=== PATIENT | male | born 1950 | race Caucasian/White ===

== ENCOUNTER 2019-11-10 11:03 | Outpatient (REF) | payer MEDICARE, MEDICAID, SELFPAY | END 2019-11-10 11:04 | disposition home or self-care (01) | LOC: HO.LAB 11:03 | PROVIDERS: Visit Provider Internal Medicine | DX: Z20.828 Contact with and (suspected) exposure to other viral communicable diseases (principal) | CPT/HCPCS: 36415; 87635 ==

== ENCOUNTER 2020-01-21 14:15 | Outpatient (REF) | payer MEDICARE, MEDICAID, SELFPAY | END 2020-01-21 14:16 | disposition home or self-care (01) | LOC: HO.LAB 14:15 | PROVIDERS: Visit Provider Internal Medicine | DX: Z20.828 Contact with and (suspected) exposure to other viral communicable diseases (principal) | CPT/HCPCS: C9803; U0003 ==

== ENCOUNTER 2021-01-11 15:03 | Outpatient (REF) | payer MEDICARE, MEDICAID, SELFPAY ==
--- NOTE | ~2021-01-11 | US_ITS ---
EXAMINATION: US COMPLETE ABDOMEN WITH LIVER ELASTOGRAPHY CLINICAL INFORMATION: Chronic lateral hepatitis. COMPARISON: None. TECHNIQUE: Real-time imaging of the abdominal viscera. Noninvasive ultrasound liver fibrosis assessment is performed using Hope ElastPQ point quantification shear wave elastography (pSWE) with a C5-2 MHz transducer. Multiple elastography samples are obtained. FINDINGS: PANCREAS: Normal. The visualized pancreatic head and body are normal in appearance. The remainder of the pancreas is obscured from visualization by the overlying bowel gas. ABDOMINAL AORTA: The proximal, middle, and distal aortic segments are normal in caliber. INFERIOR VENA CAVA: Visualized portions are normal. LIVER: The liver demonstrates normal size, contour and increased echogenicity. No focal lesion or intrahepatic biliary duct dilatation. The right lobe measures 17.3 cm in length. The left lobe measures 10.8 cm in length. Portal flow is hepatopedal. Shear wave liver elastography median stiffness is 1.25 m/s (reference: normal median stiffness is 1.3 m/s or less). IQR/median stiffness to assess sampling precision is 0.12 (reference: good quality data set is IQR/median stiffness of 0.15 or less). GALLBLADDER: Normal. The gallbladder is physiologically distended without evidence of stones, sludge, polyps, wall thickening or pericholecystic fluid. COMMON BILE DUCT: Normal in caliber measuring 0.40 cm in diameter. RIGHT KIDNEY: Normal. No hydronephrosis. No renal calculi or focal parenchymal lesions. The kidney measures 12.5 cm in maximum dimension. LEFT KIDNEY: Normal. No hydronephrosis. No renal calculi or focal parenchymal lesions. The kidney measures 11.6 cm in maximum dimension. SPLEEN: Normal. The spleen measures 13.4 cm in maximum dimension. There are multiple echogenic calcification seen. FREE FLUID: None. US/US abdomen comp w elastography IMPRESSION: 1. Diffuse hepatic steatosis without focal lesion. There are multiple echogenic calcifications in the spleen. 2. Liver elastography: Median liver stiffness 1.25 m/s suggestive of high probability for normal exam. REFERENCE: Society of Radiologists in Ultrasound Liver Stiffness Thresholds (2019): LIVER STIFFNESS THRESHOLDS: *Liver Stiffness equal or less than 1.3 m/s: High probability of being normal. *Liver Stiffness less than 1.7 m/s: In the absence of other known clinical signs, rules out compensated advanced chronic liver disease. *Liver Stiffness 1.7-2.1 m/s: Suggestive of compensated advanced chronic liver disease but need further test for confirmation. *Liver Stiffness over 2.1 m/s: Rules in compensated advanced chronic liver disease. *Liver Stiffness over 2.4 m/s: Suggestive of clinically significant portal hypertension. QUALITY OF DATA SET: *IQR/Median value equal or less than 0.15 implies a quality data set. *IQR/Median value over 0.15 implies a poor quality data set. SIGNIFICANT CHANGE FROM PRIOR EXAM: Significant change if liver stiffness measurement is 10% or greater from prior exam. OTHER CONSIDERATIONS: The stage of liver fibrosis may be overestimated in the setting of acute hepatitis, liver inflammation, elevated liver function tests, hepatic vascular congestion, obstructive cholestasis, non-fasting state, and infiltrative diseases such as amyloidosis and lymphoma. In some patients with NAFLD, the liver stiffness thresholds for compensated advanced chronic liver disease may be lower. In causes other than viral hepatitis and NAFLD, liver stiffness thresholds are not well established.
== END 2021-01-11 15:04 | disposition home or self-care (01) ==
LOC: HO.US 15:03
PROVIDERS: Visit Provider Family Medicine
DX: B18.2 Chronic viral hepatitis C (principal)
CPT/HCPCS: 76705; 76981

== ENCOUNTER 2021-08-29 09:07 | Outpatient (REF) | payer MEDICARE, MEDICAID, SELFPAY ==
[2021-08-29 09:41] LABS: MANUAL DIFF FLAG NO
[2021-08-29 10:18] LABS: Basophils Percent Auto 0.4 % (0-2); Eosinophils Absolute Auto 0.3 X10*3/uL (0.0-0.4); Eosinophils Percent Auto 2.7 % (0-4); Hematocrit 45.4 % (42.0-52.0); Hemoglobin 14.9 g/dl (14.0-18.0); Imm Gran Abs Auto 0.03 X10*3/uL (0.00-0.03); Imm Gran Pct Auto 0.3 % (0.0-0.4); Lymphocytes Absolute Auto 1.4 X10*3/uL (1.2-4.9); Mean Corpuscular HGB Conc 32.8 g/dl (31.0-36.0); Mean Corpuscular Hemoglobin 29.7 pg (27.0-33.0); Mean Corpuscular Volume 90.6 fL (80.0-98.0); Mean Platelet Volume 10.2 fL (9.4-12.4); Neutrophils Percent Auto 74.6 % (45-73); Platelet Count 224 X10*3/uL (160-400); Red Blood Count 5.01 X10*6/uL (4.60-5.80); Red Cell Distribution Width 13.2 % (11.0-16.0); White Blood Count 10.8 X10*3/uL (4.8-10.8)
[2021-08-29 10:57] LABS: Alanine Aminotransferase 17 U/L (0-40); Alkaline Phosphatase 91 U/L (39-117); Anion Gap 10 (12-20); Aspartate Amino Transferase 17 U/L (5-37); Bilirubin Total 0.4 mg/dL (0.0-1.0); Blood Urea Nitrogen 18 mg/dL (9-16); Calcium 8.6 mg/dL (8.4-10.2); Carbon Dioxide 30 mmol/L (22-29); Chloride 102 mmol/L (96-108); Estimated Glomerular Filt Rate > 60; Glucose Random 314 mg/dL (60-115); Iron 65 mcg/dL (45-160); Percent Iron Saturation 24 % (15-50); Potassium 4.7 mmol/L (3.3-5.1); Sodium 137 mmol/L (135-145); Total Iron Binding Capacity 269 mcg/dL (228-428); Total Protein 6.6 g/dL (6.5-8.0); Unsaturated Iron Binding 204 ug/dL
[2021-08-29 11:09] LABS: Estimated Average Glucose 151 mg/dL; Hemoglobin A1c % 6.9 %
[2021-08-29 11:18] LABS: Thyroid Stimulating Hormone 1.27 uIU/mL (0.32-4.0)
[2021-08-30 07:16] LABS: HCG Tumor Marker <3 mIU/mL (<5)
[2021-09-01 09:26] LABS: HCV Log PCR <1.18 NOT DETECTED Log IU/mL (NOT DETECTED); HepC Viral Load <15 NOT DETECTED IU/mL (NOT DETECTED)
== END 2021-08-29 09:08 | disposition home or self-care (01) ==
LOC: HO.LAB 09:07
PROVIDERS: PCP Internal Medicine; Visit Provider Physician Assistant
DX: I63.9 Cerebral infarction, unspecified (principal); B19.20 Unspecified viral hepatitis C without hepatic coma; K52.9 Noninfective gastroenteritis and colitis, unspecified; E11.9 Type 2 diabetes mellitus without complications; Z78.9 Other specified health status
CPT/HCPCS: 36415; 80053; 83036; 83540; 84443; 84702; 85025; 87522; 99202

== ENCOUNTER → 2021-10-26 13:08 | Outpatient (BNVA) | payer MEDICARE, MEDICAID, SELFPAY | PROVIDERS: PCP Internal Medicine; Visit Provider Physician Assistant | DX: K74.02 Hepatic fibrosis, advanced fibrosis (principal); B19.20 Unspecified viral hepatitis C without hepatic coma; Z78.9 Other specified health status | CPT/HCPCS: Q3014 ==

== ENCOUNTER 2022-12-25 14:21 | Outpatient (REF) | payer MEDICARE, MEDICAID, SELFPAY ==
[2022-12-25 17:32] LABS: Anion Gap 12 (12-20); Blood Urea Nitrogen 17 mg/dL (9-16); Calcium 9.9 mg/dL (8.4-10.2); Carbon Dioxide 34 mmol/L (22-29); Chloride 102 mmol/L (96-108); Estimated Glomerular Filt Rate > 60; Glucose Random 69 mg/dL (60-115); Potassium 4.5 mmol/L (3.3-5.1); Sodium 143 mmol/L (135-145)
[2022-12-26 08:33] LABS: D Dimer High Sensitivity 1878 NG/ML
== END 2022-12-25 14:22 | disposition home or self-care (01) ==
LOC: HO.CHCLDS 14:21
PROVIDERS: Visit Provider Internal Medicine
DX: R06.4 Hyperventilation (principal)
CPT/HCPCS: 36415; 80048; 85379

== ENCOUNTER 2023-08-20 12:17 | Outpatient (REF) | payer MEDICARE, MEDICAID, SELFPAY ==
[2023-08-20 14:55] LABS: Alanine Aminotransferase 24 U/L (0-40); Albumin Level 4.2 g/dL (3.5-5.0); Alkaline Phosphatase 73 U/L (39-117); Anion Gap 13 (12-20); Aspartate Amino Transferase 33 U/L (5-37); Bilirubin Total 0.4 mg/dL (0.0-1.0); Blood Urea Nitrogen 15 mg/dL (9-16); Calcium 9.7 mg/dL (8.4-10.2); Carbon Dioxide 27 mmol/L (22-29); Chloride 105 mmol/L (96-108); Cholesterol 130 mg/dL (<200); Estimated Glomerular Filt Rate > 60; Glucose Random 158 mg/dL (60-115); HDL Cholesterol 39 mg/dL (>40); LDL Cholesterol Calculated 60 mg/dL (<100); Potassium 4.1 mmol/L (3.3-5.1); Sodium 141 mmol/L (135-145); Total Protein 6.9 g/dL (6.5-8.0); Triglycerides 158 mg/dL (<150)
== END 2023-08-20 12:18 | disposition home or self-care (01) ==
LOC: HO.CHCLDS 12:17
PROVIDERS: Visit Provider Internal Medicine
DX: E11.9 Type 2 diabetes mellitus without complications (principal); Z79.4 Long term (current) use of insulin; E78.2 Mixed hyperlipidemia
CPT/HCPCS: 36415; 80053; 80061

== ENCOUNTER 2023-10-30 15:57 | Outpatient (REF) | payer MEDICARE, MEDICAID, SELFPAY | END 2023-10-30 15:58 | disposition home or self-care (01) | LOC: HO.CHCLNP 15:57 | PROVIDERS: Visit Provider Internal Medicine | DX: L03.312 Cellulitis of back [any part except buttock and flank] (principal) | CPT/HCPCS: 87070; 87205 ==

== ENCOUNTER 2023-11-01 12:58 | Outpatient (REF) | payer MEDICARE, MEDICAID, SELFPAY ==
[2023-11-01 14:55] LABS: Creatinine Urine 135.32 mg/dL; Microalbum/Creatinine Ratio Ur 17.7 ug/mg cr (<30)
== END 2023-11-01 12:59 | disposition home or self-care (01) ==
LOC: HO.CHCLNP 12:58
PROVIDERS: Visit Provider Internal Medicine
DX: E11.9 Type 2 diabetes mellitus without complications (principal); Z79.4 Long term (current) use of insulin
CPT/HCPCS: 82043; 82570

== ENCOUNTER 2023-11-27 13:12 | Outpatient (AMB) | payer MEDICARE, MEDICAID, SELFPAY ==
--- NOTE | 2023-11-27 13:13 | A.OFFVIS_ITS ---
Vital Signs 11/27/23 13:20 Weight 191 lb BP 136/74 Blood Pressure Location Rt brachial Position Sitting Pulse 100 Intake Visit Reasons: Epidermoid cyst of skin of back Intake Note: Patient referred by Dr. Abbott for cyst on posterior neck. Present for yrs. Had it removed about 2yrs ago. Patient c/o: lump. Denies pain, oozing. Drafter Commercial Required: No Accompanied by: Self / Same As Patient Allergies No Known Allergies Allergy (Verified 11/27/23 13:19) HPI Comments Details: Patient presents for an symptomatic enlarging upper back mass. He has had this indeterminate time. His increasing in size, becoming more symptomatic. He would like to have removed. Patient has had other back masses /sebaceous cysts excised in the past. Chart was reviewed and patient evaluate [facility] Medical History (Updated 11/27/23 @ 13:23 by CARY Rocha) HTN (hypertension) Surgical History (Updated 11/27/23 @ 13:29 by Ezekiel Nichols MD) Hx of inguinal hernia surgery History of esophagogastroduodenoscopy (EGD) Hx of colonoscopy Family History Mother CHD (congenital heart disease) Social History Household Members Other:: Lives with GF Alcohol intake: former Patient Tobacco Use Status: Former Tobacco user Substance Use Type: Marijuana Current occupational status: retired Physical Exam Vital Signs: Last Vital Signs Pulse 100 11/27/23 13:20 BP 136/74 11/27/23 13:20 Chest Other: Chest breath sounds bilaterally, HS 1 in 2 GI Other: Abdomen corpulent, soft, benign Back/Spine/Pelvis Other: Patient has a large upper midline mass/sebaceous cyst measuring roughly 4 x 4 cm. Other scars from prior excision seen Extrem Other: 0 4 grossly intact. Status post right total knee replacement Assessment & Plan Assessment & Plan (1) Diabetes: Code(s): E11.9 - Type 2 diabetes mellitus without complications Category: Surgical Plan: Risks, benefits, alternatives of excision of upper back large mass/sebaceous cyst were reviewed with the patient and included but not limited to bleeding, infection, recurrence, numbness, pain, scarring, seroma formation, wound dehiscence and the patient wished to proceed. All questions answered. Arrangements made for this. Patient will need to have his Plavix held prior to procedure. (2) Sebaceous cyst: Code(s): L72.3 - Sebaceous cyst Category: Surgical Plan: See above Coding Level of Care Code New Pt Level 5 (79523) Diagnoses Diabetes E11.9 Sebaceous cyst L72.3
[2023-11-27 13:20] VITALS: BP 136/74; PULSE 100
== END 2023-11-27 13:34 | disposition home or self-care (01) ==
LOC: HO.HGS 13:12
PROVIDERS: PCP Internal Medicine; Visit Provider Surgery
DX: E11.9 Type 2 diabetes mellitus without complications (principal); L72.3 Sebaceous cyst
CPT/HCPCS: 99204

== ENCOUNTER → 2023-11-27 13:12 | Outpatient (BNVA) | payer MEDICARE, MEDICAID, SELFPAY | PROVIDERS: PCP Internal Medicine; Visit Provider Surgery | DX: L72.3 Sebaceous cyst (principal); E11.9 Type 2 diabetes mellitus without complications | CPT/HCPCS: 99202 ==

== ENCOUNTER 2024-02-18 12:15 | Outpatient (RCR) | payer MEDICARE, MEDICAID, SELFPAY ==
--- NOTE | 2024-03-27 11:25 | MHC.SP.ADU ---
Referring provider: Jenni Santiago MD Reason for Referral: Post-CVA Type of Treatment: 16842 Evaluation Speech Sound Production WITH Language Date of Plan of Treatment: 02/18/24 Onset of Symptoms/Illness: 01/19/24 Date Treatment Started: 02/18/24 Medical Diagnosis: I63.89 Cerebrovascular accident (CVA) d/t other mechanism Primary Speech Language Diagnosis: R47.1 Dysarthria Secondary Speech Language Diagnosis: R47.01 Aphasia History Mr. Taylor is a charismatic 73 year old male referred for a speech-language evaluation by Jenni Santiago MD from the [facility]. Mr. Taylor reports on 01/19/24 experiencing sudden onset of severe headache and slurred speech. He was reportedly out of window for CVA interventions given his time of presentation to the ED. His Head CT showed no acute intracranial pathology, with old white matter ischemic changes and infarcts including the right navarrete radiate and bilateral basal ganglia as well as moderate atrophy. Mr. Taylor reports he can express himself appropriately, but does not feel that his speech has fully recovered, and describes his articulation difficulties as ?feeling like [he has] a mushy mouth.? He expresses that this has bothered him, as he is frequently talking to new people by phone or email to invite to his open jayesh. 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 Because he now feels self-conscious, he has had someone accompany him as he performs. Mr. Taylor reports that his partner, Glenny, also has a difficult time understanding his speech at times. Patient reports difficulties in the following areas: being understood by others, finding words, stuttering, oral motor weakness. Patient completed high school level education and was previously working a sanitary job. His medical history includes diabetes, hypertension, GERD, heart disease, hyperlipidemia, and self-reported history of prior stroke in 2009. Mr. Taylor lives in a private residence with his partner and has one adult son. Mr. Taylor wears cheaters for reading and does not use any other assistive devices at this time. Medical History: Other: Benign prostatic hyperplasia without urinary obstruction CVA Chronic gingivitis Depressive disorder Diabetes mellitus type 2 Disorder of nasal sinus Essential hypertension GERD Heart disease Viral hepatitis C Hyperlipidemia Cellulitis and abscess of trunk Cyst of his upper back Assessment Speech Production: Aphasic: Nonfluent Dysarthric Garbled Nonfluent Clinical Impression: Impaired Observations: With oral neuromotor examination, patient displayed facial symmetry at rest and with labial retraction. He was able to puff his cheeks and maintain labial seal when pressure was applied. He pursed his lips for production of vowel ?oo? and retracted his lips for production of ?ee.? Note slight weakness of the tongue with protrusion into the left cheek. Lingual ROM is within functional limits. Strength and range of motion of the lips and jaw are deemed to be within functional limits. Note intact and symmetrical velar elevation with phonation. Patient has adequate natural dentition for mastication. Patient reports he will be seeing an ENT on Sunday for ?over salivating all of the time.? He reports his father experienced the same thing after his stroke and patient himself has been dealing with this since his first stroke. Patient?s speech is characterized as garbled with occasional hesitancies or dysfluencies. Patient?s productions broke down in multisyllabic words (i.e. asparagus, harmonica), as he exhibited difficulty sequencing syllables especially when pressed for time or speaking with a rapid rate of speech. Patient presented with increased metathesis patterns, sound substitutions, and distortions with word or phrase length. Patient exhibited particular difficulty producing consonant clusters and blends (i.e. igloo), fricative sounds, especially the /f/ and /z/ sounds in the final position of words (i.e. volcano, [place]). Patient was able to improve his productions when repeating himself with a slowed rate of speech. His dysfluencies consisted of whole-word and part-word (syllable) repetitions. No blocking was observed during this evaluation period. Patient reports he ?stutters whenever [he] tries to express himself.? Tests of Speech & Lang Adults: BDAE BNT Clinical Impression: Impaired Observations: Patient was administered the Auditory Comprehension and Oral Expression subtests of the [place]s Diagnostic Aphasia Examination. His performance is summarized below: RECEPTIVE LANGUAGE: Patient completed single-step commands, which were verbally presented to him, demonstrating intact basic word discrimination (i.e. ?Point to your shoulder? ?Point to the picture representing an ant?) (score 16/16). He identified body parts on himself and line images from an array of 4. He likewise completed multi-step and more complex commands without any difficulty. Patient was presented with a verbal directions. Each element of the direction carried out was scored with 1 point. He received a score of 10 out of 10 on this task. He correctly answered yes/no questions about ideational material in 4 out of 4 trials and about short stories read aloud for him in 8 out of 8 trials. Questions were presented in pairs (6 pairs), each pair consisting of a yes-item and a no-item. In order to gain 1 point, patient was to answer both questions correctly. He received a score of 6/6. No difficulties were identified in the area of receptive language. EXPRESSIVE LANGUAGE: Patient recited the days of the week and counted to 21 without difficulty, receiving a score of 4/4. He reported no difficulties with automatic speech tasks. Patient repeated single words in 5 out of 5 trials and complete sentences in 2 out of 2 trials. He exhibited no difficulty with repetition. He responded appropriately to responsive naming questions (i.e. ?What do you use to shave??) in 5 out of 5 trials. Items immediately named were scored as 2 points and items named after a short time delay (>5 sec) were scored as 1 point. Patient named 5 items immediately, receiving a score of 10/10. Patient correctly named ?special categories,? which included letters, numbers, and colors in 12 out of 12 trials. Patient formulated complete sentences with appropriate use of grammatical forms and varied sentence structure. Patient did exhibit mild word finding difficulty at the conversational level, thus the Downs Naming Test was administered. Patient completed the Standard Form and correctly named 52 out of 60 line images. He exhibited hesitancies with confrontational naming and on occasion produced semantic paraphasias (i.e. naming abacus as ?badmitton?). Patient also described target words as a means of self-cuing. For example, he described ?compass? as ?a measuring device? and escalator as ?motorized stairs.? Patient reports having trouble finding words in the context of a conversation and especially with heightened emotion. Impressions and Recommendations Summary: Mr. Taylor presents with a mild dysarthria, characterized by garbled speech quality and occasional hesitancies or dysfluencies, with difficulty on production of multisyllabic words, fricative sounds, and consonant blends. Encouragingly, Mr. Taylor is able to self-correct his productions when pausing and slowing his rate of speech. 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 He otherwise presents with strengths in his receptive and expressive language skills, demonstrating intact auditory comprehension, repetition, automatized speech, and sentence formation. Mr. Taylor is recommended 12 weekly visits for speech therapy in the outpatient setting to address articulation and word retrieval. Impact on Daily Function/Activity Limitations: Daily Activities: None Interpersonal Interactions: Mild Education: Employment: Mild Community: Mild Prognosis for Improvement: Good Recommendation for Speech Therapy: Outpatient Speech Therapy Frequency/Duration: 1x weekly x 12 weeks Date Range for Service Requested: Time to Reassess: 3 months Handkerchief Maker Goals: 1. Patient will independently use strategies for articulation and breath support to achieve 95% speech intelligibility at the conversational level. 2. Patient will utilize a variety of word-finding strategies at the conversational level with minimal assistance in >80% opportunities. Short Term Goals: Goal # : 1.1. Patient will accurately produce consonant clusters in the initial and medial positions of words at the sentence level with 90% accuracy with cues faded to independence. Goal Status: New Goal Goal# : 1.2. Patient will accurately produce the /v/ sound in all word positions at the sentence level with 90% accuracy and cues faded to independence. Goal Status: New Goal Goal # : 1.3. Patient will employ compensatory strategies (i.e. overarticulating, pacing, slowing rate of speech, appropriate pauses) to improve speech intelligibility during expository speech and paragraph reading in 90% of opportunities and cues faded to independence. Goal Status: New Goal Goal # : 2.1. Patient will produce a minimum of 4 different features, when presented with a word using semantic feature analysis (SFA), given minimal verbal prompts, with 80% accuracy. Goal Status: New Goal Patient Education: Completed: Yes Patient/Caregiver Education: Described Results of Evaluation Patient expressed understanding of evaluation Patient requires further education on strategies Comments/Barriers to Learning: It was a pleasure meeting and working with Mr. Taylor. Please do not hesitate to contact the [facility] if there are any questions related to the content of this report or if we can be of further assistance in Mr. Taylor?s care. Civil Geotechnical Engineer Clinican/Clinical Fellow: No Supervisory Statement: N/A Speech Language Pathologist: Vivian Magana M.A., CCC-SCALE MANAGER
== END 2024-04-15 09:20 | disposition still patient (30) ==
LOC: HO.SH 12:15
PROVIDERS: Visit Provider Internal Medicine
DX: I63.89 Other cerebral infarction (principal)
CPT/HCPCS: 92523

== ENCOUNTER 2024-06-12 12:53 | Outpatient (REF) | payer MEDICARE, MEDICAID, SELFPAY ==
--- NOTE | 2024-06-12 13:00 | PFT_ITS ---
Indication: Dyspnea Spirometry [FEV1 to FVC 91%; FEV1 2.87 L; FVC 3.16 L. bronchodilators were not given. Lung Volumes [ To note the efforts were not reproducible or repeatable and therefore the data is suboptimal.]] Diffusion Capacity [DLCO 66% predicted] Comparisons [none] Interpretation [No restrictive nor obstructive ventilatory defects could be appreciated. Again bronchodilators were not used. Lung volumes could not be measured optimally. The patient however does have a [id number] diffusion impairment. Clinical correlation warranted.] MTDD
--- OUTSIDE RECORDS SUMMARY | 2024-06-12 14:00 | XMS_ITS | Clinical Summary ---
Author Organization [address] [place] [address] Address [address] [place] [address] Phone Care Team Providers Care Textile Colorist Dyer Name Role Phone Jenni Santiago MD Primary Care Provider [phone] [phone] Allergies No known active allergies Medications acetaminophen (TYLENOL) 500 mg tablet Take 500 mg by mouth every 6 hours as needed. Active amLODIPine (NORVASC) 5 mg tablet Take 1 Tablet by mouth daily. Active ammonium lactate (LAC-HYDRIN) 12 % lotion Apply to soles of feet daily. At night wear socks to bed 4 Active apixaban (ELIQUIS) 2.5 mg tablet Take by mouth. Activ e atorvastatin (LIPITOR) 40 mg tablet Take 1 Tablet by mouth daily. Active cetirizine (ZyrTEC) 10 mg capsule Take by mouth. Active cholecalciferol (VITAMIN D-3) 50 mcg (2,000 unit) capsule Take by mouth. A ctive diazePAM (VALIUM) 5 mg tablet Take 5 mg by mouth every 8 hours as needed. Active escitalopram (LEXAPRO) 5 mg tablet Take 5 mg by mouth daily. Active ezetimibe (ZETIA) 10 mg tablet Take 1 Tablet by mouth daily. Active finasteride (PROSCAR) 5 mg tablet Take 5 mg by mouth daily. Active gabapentin (NEURONTIN) 600 mg tablet Take 600 mg by mouth 2 times daily. Active hydroCHLOROthia zide 12.5 mg tablet Take 12.5 mg by mouth daily. Active insulin lispro 100 unit/mL injection Inject as directed. Active losartan (COZAAR) 25 mg tablet Take 4 Tablets by mouth daily. Active omeprazole (PriLOSEC) [address] capsule Take 20 mg by mouth daily. Active venlafaxine 150 mg 24 hr tablet Take by mouth. Active glucose blood test strip by Other route. by Other route. - Other 3 Active blood-glucose sensor (Dexcom G6 Sensor) device by Does not apply route. - Does not apply 2 Active blood-glucose meter,continuou s (Dexcom G6 Percolator Operator) misc by Does not apply route. - Does not apply Active clopidogreL (PLAVIX) 75 mg tablet Take by mouth. - Oral 4 Active lancets lancets by Other route. by Does not apply route. - Does not apply 3 Active ammonium lactate (AMLACTIN) 12 % cream Apply topically 1 (one) time each day. 560 g 5 08/12/19 25 Active salicylic acid 17 % gel Apply topically 1 (one) time each day. 15 g 5 07/13/19 25 Active Active Problems Problem Noted Date Diagnosed Date Absent pedal pulses 04/03/2023 BPH (benign prostatic hyperplasia) 04/03/2023 CVA (cerebral vascular accident) ([facility] V24, C [facility] V28) 04/03/2023 Depression 04/03/2023 GERD (gastroesophageal reflux disease) 4 Glaucoma 04/03/2023 HLD (hyperlipidemia) 04/03/2023 HTN (hypertension) 04/03/2023 Non-healing wound of right heel 04/03/2023 PAD (peripheral artery disease) ([facility] V24) T2DM (type 2 diabetes mellitus) ([facility] V24, CM S/[facility] V28) 04/03/2023 Encounters Date Type Department Care Team Description 06/12/2024 9:30 AM EDT Office Visit Orthopedic Surgery - [address] [address] Froilan Escobar, DPM Verruca plantaris (Primary Dx); Primary osteoarthritis of both feet; Type II diabetes mellitus with peripheral circulatory disorder ([facility] V24, [facility] V28); Diabetic mononeuropathy simplex ([facility] V24, [facility] V28); Dermatophytosis of nail; Pain in toe of left foot; Pain in toe of right foot; Metatarsalgia of both feet 05/30/2024 1:30 PM EDT Office Visit Vascular Surgery - [place] [address] [place] [address] Spike Anton MD PAD (peripheral artery disease) ([facility] V24) (Primary Dx); History of TIA (transient ischemic attack) and stroke from Last 3 Months Immunizations Name Administration Dates Next Due Moderna SARS-CoV-2 COVID-19, mRNA, LNP-S, preservative free 12/06/2020 Pfizer SARS-CoV-2 COVID-19, mRNA, LNP-S, preservative free 05/04/2020,04/13/2020 Surgical History Surgery Date Site/Laterality Comments TOTAL KNEE ARTHROPLASTY Right PROCEDURE: HISTORICAL TOTAL KNEE REPLACE OTHER SURGICAL HISTORY 06/19/2023 PROCEDURE: CO SLCTV CATHJ 2ND ORDER ABDL PEL/LXTR ART BRNCH OTHER SURGICAL HISTORY 06/19/2023 PROCEDURE: X-RAY EXAM OF ARM/LEG ARTERY OTHER SURGICAL HISTORY 06/19/2023 PROCEDURE: ULTRASOUND GUIDANCE FOR VASCULAR AC OTHER SURGICAL HISTORY 07/05/2023 Right PROCEDURE: CO TEAEC W/GRAFT SUPERFICIAL FEMORAL ARTERY Medical History Medical History Date Comments Essential hypertension DX:Essent ial hypertension Diabetes mellitus type 2, co ntrolled, with complications ([facility] V24, [facility] V28) DX:Diabetes mellitus type 2, controlled, with complications ([facility]) Social History Tobacco Use Types Packs/Day Years Used Date Smoking Tobacco: Former Cigarettes Q uit: 02/05/2003 Smokeless Tobacco: Never Alcohol Use Standard Drinks/Week Comments Never 0 (1 standard drink = 0.6 oz pur e alcohol) Sex and Gender Information Value Date Recorded Sex Assigned at Not on file Legal Sex Male 11:40 PM EST Gender Identity Not on file Sexual Orientation Not on file Obstetrics History Last Filed Vital Signs Vital Sign Reading Time Taken Comments Blood Pressure 120/60 05/30/2024 1:26 PM EDT Pulse 84 05/30/2024 1:26 PM EDT Temperature - - Respiratory Rate 16 05/30/2024 1:26 PM EDT Oxygen Saturation - - Inhaled Oxygen Concentration - - Weight 91.6 kg (202 lb) 05/30/2024 1:26 PM EDT Height 175.3 cm (5' 9 ) 05/30/2024 1:26 PM EDT Body Mass Index 29.83 05/30/2024 1:26 PM EDT Plan of Treatment Upcoming Encounters Date Type Department Care Team (Late st Contact Info) Description 07/24/2024 1:45 PM EDT Office Visit Orthopedic Surgery - [place] [address] [facility] [address] [place] [address] Froilan Escobar, DPM 175 [facility] [address] [place] [address] 07/30/2024 12:00 PM EDT Ancillary Procedure [facility] [address] 300 [facility] 101 [place] [address] 07/31/2024 1:30 PM EDT Ancillary Procedure [facility] [address] [facility] [address] [place] [address] 08/29/2024 1:30 PM EDT Office Visit Vascular Surgery - [place] [address] [place] [address] Spike Anton MD 300 [facility] [address] [place] [address] Health Maintenance Due Date Last Done Comments Diabetes: Annual Foot Exam 08/26/1959 Diabetes: Annual Retina Eye Exam 08/26/1959 Hepatitis A Vaccines (1 of 2 - Risk 2-dose series) 1968 Hepatitis B Vaccines (1 of 3 - Risk 3-dose series) 2009 Abdominal Aortic Aneurysm (AAA) Screen 01/15/2022 Colorectal Cancer Screening: Colonoscopy 01/15/2022 Falls Risk Assessment 01/15/2022 Medicare Annual Wellness Visit 01/15/2022 Social Influencers of Health Screening 01/15/2022 Diabetes: Annual Urine Albumin-Creatinine Ratio (uACR) 08/31/2023 COVID-19 Vaccine (7 - Mixed Product risk season) 2024 12/10/2023, 01/17/2023, 12/09/2021, Additional history exists Diabetes: Annual GFR (Glomerular Filtration Rate) 08/19/2024 08/20/2023 Hypertension/CHF/CAD Annual BMP Blood Test 08/19/2024 08/20/2023 Diabetes: Blood Sugar Control Test (HGBA1C) 09/07/2024 03/10/2024, 12/06/2023, 08/29/2021 Depression Screening 03/10/2025 03/10/2024 Cholesterol Screening (Lipid Panel) 08/19/2028 08/20/2023, 08/20/2023 DTaP,Tdap,and Td Vaccines (3 - Td or Tdap) 03/05/2034 03/05/2024, 02/01/2017 Pneumococcal Vaccine: 50+ Years Completed 11/01/2018, 02/01/2017 Zoster Vaccines Completed 09/17/2019, 11/01/2018 Hepatitis C Screening Completed 08/29/2021 RSV Immunization Adult Patients Completed 01/17/2023 Influenza Vaccine Completed 12/10/2023, , 11/24/2021, Additional history exists HIB Vaccines Aged Out No longer eligi ble based on patient's age to complete this topic HPV Vaccines Aged Out No longer eligi ble based on patient's age to complete this topic IPV Vaccines Aged Out No longer eligi ble based on patient's age to complete this topic MMR Vaccines Aged Out No longer eligi ble based on patient's age to complete this topic Meningococcal ACWY Vaccine Aged Out N o longer eligible based on patient's age to complete this topic Meningococcal B Vaccine Aged Out No l onger eligible based on patient's age to complete this topic RSV Immunization Patients Under 20 months Aged Out No longer eligible based on patient's age to complete this topic Varicella Vaccines Aged Out No longer eligible based on patient's age to complete this topic Procedures Procedure Name Priority Date/Time Associated Diagnosis Comments ANNUAL BMP BLOOD TEST Routine 08/20/2023 LIPID PANEL Routine 08/20/2023 HEPATITIS C SCREENING Routine 08/29/2021 HEMOGLOBIN A1C Routine 08/29/2021 from Last 3 Months or Most Recently Relevant to Health Maintenance Results * Annual BMP Blood Test (08/20/2023) Pathologist [facility] Annual BMP Blood Test abstracted [facility] Provider HEALTH MAINTENANCE Final Result * Lipid panel (08/20/2023) [facility] Triglycerides 0 mg/dL Comment:no interpretation Cholesterol 0 mg/dL Comment:no interpretation HDL 0 mg/dL Comment:no interpretation LDL Cholesterol 0 mg/dL Comment:no interpretation Blood Venous blood specimen / Unknown Result [facility] Provider LAB BLOOD ORDERABLES Janeth l Result * Hepatitis C Screening (08/29/2021) [facility] Hepatitis C Screening abstracted [facility] Provider HEALTH MAINTENANCE Final Result * Hemoglobin A1c (08/29/2021) [facility] Hemoglobin A1C 0.0 % Comment:no interpretation Blood Venous blood specimen / Unknown Result [facility] Provider LAB BLOOD ORDERABLES Janeth l Result from Last 3 Months or Most Recently Relevant to Health Maintenance Insurance [address] [place] [address] MEDICARE [place]ICA[place] - [place] [address] [place] [address] Care Teams Textile Colorist Dyer Relationship Specialty Start Date End Date Jenni Santiago MD [address] [place] [address] PCP - General Internal Medicine 08/03/21
--- OUTSIDE RECORDS SUMMARY | 2024-06-12 14:00 | XMS_ITS | Encounter Summary ---
Author Organization [employer] Address [address] [facility] [address] [place] [address] Care Team Providers Care Coil Taper Name Role Phone Jenni Santiago MD Primary Care Provider [phone]- [phone] Reason for Visit * Reason Comments Med Refill Encounter Details Date Type Department Care Team (Late st Contact Info) Description 02/22/2022 Refill [facility] [address] [place] [address] Carlene Dawson MD [address] [place], [place] [phone] Essential hypertension Social History Tobacco Use Types Packs/Day Years Used Date Smoking Tobacco: Never Assessed Sex and Gender Information Value Date Recorded Sex Assigned at Male 12/05/2021 10:21 AM EDT Legal Sex Male 10:21 AM EDT Gender Identity Male 12/05/2021 10:21 AM EDT Sexual Orientation Straight 12/05/2021 10 :21 AM EDT documented as of this encounter Plan of Treatment Upcoming Encounters Date Type Department Care Team (Late st Contact Info) Description 07/29/2024 1:45 PM EDT Office Visit [facility] [address] [place], [place] [phone] Jenni Santiago MD [address] [place], [place] [phone] documented as of this encounter Visit Diagnoses Diagnosis Essential hypertension Unspecified essential hypertension documented in this encounter Care Teams Coil Taper Relationship Specialty Start Date End Date Jenni Santiago MD [address] [place] [id number] PCP - General Internal Medicine 02/05/18 documented as of this encounter
--- OUTSIDE RECORDS SUMMARY | 2024-06-12 14:00 | XMS_ITS | Encounter Summary ---
Author Organization [facility] Address [address] [place] [address] Care Team Providers Care Electromyographic Technician Name Role Phone Jenni Santiago MD Primary Care Provider [phone] [phone] Encounter Details Date Type Department Care Team (Late st Contact Info) Description 06/12/2024 9:30 AM EDT Office Visit Orthopedic Surgery - [place] [address] [phone] Froilan Escobar, DPM [address] [address] Verruca plantaris (Primary Dx); Primary osteoarthritis of both feet; Type II diabetes mellitus with peripheral circulatory disorder ([facility] V24, [facility] V28); Diabetic mononeuropathy simplex ([facility] V24, [facility] V28); Dermatophytosis of nail; Pain in toe of left foot; Pain in toe of right foot; Metatarsalgia of both feet Social History Tobacco Use Types Packs/Day Years [...] on file Sexual Orientation Not on file documented as of this encounter Ordered Prescriptions Prescription Sig Dispense Quantity Refills Last Filled Start Date End Date salicylic acid 17 % gel Apply topically 1 (one) time each day. 15 g 06/12/2024 5 ammonium lactate (AMLACTIN) 12 % cream Apply topically 1 (one) time each day. 560 g 06/12/2024 5 documented in this encounter Progress Notes * Froilan Escobar, DPM - 06/12/2024 9:30 AM EDT S Reports new problem ball of his left foot feels walking on small rocks is very painful is wonder ifit is a wart to be gone for last month she is very painful achy tenderness of the nails along the painful thickened continues complain of chronic pain discomfort in his ankles and feet gets chronic achy throbbing pain at the end of the day reports that he has been using Voltaren gel topically with some improvement states that occasionally gets flares of his hindfoot he feels like top medication does help is a type II diabetic denies worsening numbness burning or tingling to either feet denies wound formation Last MD visit 04-23-2024 Dr hemant ORDONEZ ROS: GENERAL: Pt denies nausea, fever, vomiting, chills, or shortness of breath. Pt in NAD. CARDIOLOGY: pt denies chest pain, palpitations LUNGS: pt denies shortness of breath MUSCULOSKELETAL: See HPI, otherwise no joint pain or swelling, back pain, or muscle pain. SKIN: see HPI, otherwise no lesions, rash or itching NEURO: No persistent headache, weakness or numbness The remainder of the review of systems is noncontributory PAST MEDICAL HISTORY: Patient Active Problem List Diagnosis Absent pedal pulses BPH (benign prostatic hyperplasia) CVA (cerebral vascular accident) ([facility] V24, [facility] V28) Depression GERD (gastroesophageal reflux disease) Glaucoma HLD (hyperlipidemia) HTN (hypertension) Non-healing wound of right heel PAD (peripheral artery disease) ([facility] V24) T2DM (type 2 diabetes mellitus) ([facility] V24, [facility] V28) SOCIAL HISTORY: Social History Tobacco Use Smoking status: Former Current packs/day: 0.00 Types: Cigarettes Quit date: 02/05/2003 Years since quittin.3 Smokeless tobacco: Never Substance Use Topics Alcohol use: Never ACTIVE MEDICATIONS: No outpatient medications have been marked as taking for the 5/8/25 encounter (Appointment) with Froilan Escobar DPM. ALLERGIES: No Known Allergies PHYSICAL EXAM: Visit Vitals Smoking Status Former PODIATRIC EXAMINATION: GENERAL: Patient appears well nourished, with NAD. VASCULAR: Dorsalis pedis pulses are 0/4 bilaterally and Posterior tibial pulses are 2/4 bilaterally. Capillary filling time within normal limits the digits. No pallor on elevation or rubor on dependency. Absent hair growth. No varicosities. Denies rest pain or claudication pain. NEUROLOGICAL: Sharp/dull sensation diminished, protective sensation diminished 7/10 with 5.07 semmes annabel bilaterally, vibratory sensation with tuning fork intact to the tibial tuberosity. ORTHOPEDIC: Good muscle strength 5/5 of all flexors and extensors. Dorsi flexion of ankle ,10 degrees, plantar flexion WNL. No muscle atrophy. DERMATOLOGICAL:. Abnormal skin formation left foot deep central core pain with lower compression pinpoint bleeding on debridement ball of left foot Toenails: Left Toenail(s) 1-5: Crumbling upon debridement, subungual debris, discoloration, dystrophy, elongation, mycotic appearance, onychomycosis, pain and thickening. Right Toenail(s) 1-5: Crumbling upon debridement, subungual debris, discoloration, dystrophy, elongation, mycotic appearance, onychomycosis, pain and thickening. Annular scaling bilateral feet moccasin distribution BIOMECHANICS: STJ ROM wnl, MTJ ROM crepitation bilateral, 1st MPJ ROM wnl. IMAGING: Radiographs taken on 10/16/2023 IMPRESSION: 1. Verruca plantaris 2. Primary osteoarthritis of both feet 3. Type II diabetes mellitus with peripheral circulatory disorder ([facility] V24, [facility] V28) 4. Diabetic mononeuropathy simplex ([facility] V24, [facility] V28) 5. Dermatophytosis of nail 6. Pain in toe of left foot 7. Pain in toe of right foot 8. Metatarsalgia of both feet PLAN: Pt was seen and examined, history reviewed. Arthritis of both feet were discussed reviewed Previous radiographs taken on 10/16/2023 left foot consistent with moderate arthritis of the hindfoot and midfoot without acute destruction Voltaren gel topically; rx sent to pharmacy Steroid injections were discussed as options for acute flares we discussed possible steroid injection of his subtalar joint or ankle joint patient states like to hold off on at this time Discussed possible benefits from steroid injections pending acute flares Discussed with patient regarding proper glucose control, exercise, and diet. Explained to patient proper shoe gear, and importance of daily foot checks. I reviewed neuropathy and why it occurs in diabetics. I educated the patient on proper blood sugar control and the importance of an HgBA1c of less than 7.0%. I reviewed the signs and symptoms of neuropathy with the patient Salicylic acid prescribed treatment options verrucous plantaris were discussed and reviewed including definitive diagnosis with biopsy Discussed with patient concerns for biopsy as it may lead to scar tissue formation but would have surgical cure and definitive diagnosis patient declined Would recommend destructive procedures patient is willing to proceed Salicylic acid was prescribed to be used at home daily at night Follow-up in 1 month [id number]: Destruction of Plantar Verrucae: Verbal informed consent was obtained from the patient. Debrided wart(s) with a scalpel. Aggressive debridement dermal curette and 15 scalpel blade followed by chemical destruction and cauterization with silver nitrate sticks. Debridement of mycotic toenails 6-10: Verbal informed consent was obtained from the patient. Greater than 6 nails were aseptically debrided in thickness and length with nail nippers Froilan Escobar DPM documented in this encounter Plan of Treatment Upcoming Encounters Date Type Department Care Team (Late st Contact Info) Description 07/24/2024 1:45 PM EDT Office Visit Orthopedic Surgery - [place] [address] [address] Froilan Escobar DPM [address] [address] 07/30/2024 12:00 PM EDT Ancillary Procedure [facility] [address] [address] 07/31/2024 1:30 PM EDT Ancillary Procedure [facility] [address] [address] 08/29/2024 1:30 PM EDT Office Visit Vascular Surgery - [place] [address] [facility] [address] [place] [address] Spike Anton MD 300 [facility] [address] [place] [address] documented as of this encounter Visit Diagnoses Diagnosis Verruca plantaris- Primary Plantar wart Primary osteoarthritis of both feet Type II diabetes mellitus with peripheral circulatory disorder ([facility] V24, [facility] V28) Type II or unspecified type diabetes mellitus with peripheral circulatory disorders, not stated as uncontrolled Diabetic mononeuropathy simplex ([facility] V24, [facility] V28) Type II or unspecified type diabetes mellitus with neurological manifestations, not stated as uncontrolled Dermatophytosis of nail Pain in toe of left foot Pain in soft tissues of limb Pain in toe of right foot Pain in soft tissues of limb Metatarsalgia of both feet documented in this encounter Care Teams Electromyographic Technician Relationship Specialty Start Date End Date Jenni Santiago MD [address] [place] [address] PCP - General Internal Medicine 08/03/21 documented as of this encounter
--- OUTSIDE RECORDS SUMMARY | 2024-06-12 14:00 | XMS_ITS | Encounter Summary ---
Author Organization [employer] Address [address] [facility] [address] [place] [address] Care Team Providers Care Surgery Specialist Name Role Phone Jenni Santiago MD Primary Care Provider [phone]- [phone] Reason for Referral * Consultation (Routine) - Closed Specialty Diagnoses / Procedures Referred By Ayde fry Referred To Contact Speech Pathology Diagnoses Cerebrovascular accident (CVA) due to other mechanism (CMS/HCC) Jenni Santiago MD [address] [place] [address] Phone: tel: fax: [facility] [address] [place] [address] Dr. Julio Cesar [place], [place] Phone: tel: fax: Referral ID Status Reason Start Date Expiration Date V isits Requested Visits Authorized [id number] Closed Specialty Services Required 02/01/2024 01/31/2025 1 1 Encounter Details Date Type Department Care Team (Late st Contact Info) Description 02/01/2024 Orders Only [facility] MED & PEDS [address], [place] [phone] Jenni Santiago MD [address] [place] [address] Cerebrovascular accident (CVA) due to other mechanism (CMS/HCC) (Primary Dx) Social History Tobacco Use Types Packs/Day Years Used Date Smoking Tobacco: Former Cigarettes 0.3 25 1 983 - 2007 Smokeless Tobacco: Never Alcohol Use Standard Drinks/Week Comments Yes 0 (1 standard drink = 0.6 oz pur e alcohol) Depression Answer Date Recorded Patient Health Questionnaire-9 Score 9 03/03/2022 Housing Stability Answer Date Recorded What is your housing situation today? I have azalia torres 11/14/[address] you li ve. Do you have problems with any of the following? Mold;Water leaks 11/14/2022 Food Insecurity Answer Date Recorded Within the past 12 months, y ou worried that your food would run out before you got money to buy more: Sometimes True 2022 Within the past 12 months,th e food you bought just didn't last and you didn't have enough money to get more: Sometimes True 11/27/2022 Transportation Answer Date Recorded In the past 12 months, has l ack of transportation kept you from medical appts, meetings, work or from getting things needed for daily living? I am not sure 11/27/2022 Utilities Answer Date Recorded In the past 12 months, has t he electric, gas, oil or water company threatened to shut off services in your home? No 11/27/2022 Depression Answer Date Recorded Patient Health Questionnaire-2 Score 2 03/03/2022 Sex and Gender Information Value Date Recorded Sex Assigned at Male 12/05/2021 10:21 AM EDT Legal Sex Male 10:21 AM EDT Gender Identity Male 12/05/2021 10:21 AM EDT Sexual Orientation Straight 12/05/2021 10 :21 AM EDT documented as of this encounter Plan of Treatment Upcoming Encounters Date Type Department Care Team (Late st Contact Info) Description 07/29/2024 1:45 PM EDT Office Visit [facility] [address] [place] [address] Jenni Santiago MD [address] [place] [address] documented as of this encounter Procedures Procedure Name Priority Date/Time Associated Diagnosis Comments AMB REFERRAL TO SPEECH THERAPY Routine 03/27/2024 Cerebrovascular accident (CVA) due to other mechanism (CMS/HCC) documented in this encounter Results * Referral to Speech Therapy (03/27/2024) us Jenin Santiago MD OUTPATIENT REFERRAL ORDERAB LES Final Result documented in this encounter Visit Diagnoses Diagnosis Cerebrovascular accident (CVA) due to other mechanism (CMS/HCC)- Primary documented in this encounter Additional Health Concerns Assessment Noted Time PHQ-9 Depression Total Score: 9 03/03/19 23 2:43 PM EST documented as of this encounter Care Teams Surgery Specialist Relationship Specialty Start Date End Date Jenni Santiago MD [address] [place] [address] PCP - General Internal Medicine 02/05/18 documented as of this encounter
--- OUTSIDE RECORDS SUMMARY | 2024-06-12 14:00 | XMS_ITS | Encounter Summary ---
Author Organization [employer] Address [address] [facility] [address] [place] [address] Care Team Providers Care Errand Runner Name Role Phone Jenni Santiago MD Primary Care Provider [phone]- [phone] Encounter Details Date Type Department Care Team (Latest Contact Info) Description 12/23/2019 Abstract [facility] CONVERSIONS Dental, Provider, DDS Social History Tobacco Use Types Packs/Day Years [...] Description 07/29/2024 1:45 PM EDT Office Visit [facility] MED & PEDS [address] [place] [address] Jenni Santiago MD [address] [place] [address] documented as of this encounter Visit Diagnoses Not on filedocumented in this encounter Care Teams Errand Runner Relationship Specialty Start Date End Date Jenni Santiago MD [address] [place] [address] PCP - General Internal Medicine 02/05/18 documented as of this encounter
--- OUTSIDE RECORDS SUMMARY | 2024-06-12 14:00 | XMS_ITS | Encounter Summary ---
Author Organization [employer] Address [address] [facility] [address] [place] [address] Care Team Providers Care Broker Name Role Phone Jenni Santiago MD Primary Care Provider [phone]- [phone] Reason for Visit * Reason Onset Date Comments Nurse Triage 03/06/2024 Encounter Details Date Type Department Care Team ([facility] st Contact Info) Description 03/06/2024 Telephone [facility]ED[facility] [address] [place] [address] Jenni Santiago MD [address] [place] [address] Nurse Triage Social History Tobacco Use Types Packs/Day Years Used Date Smoking Tobacco: Former Cigarettes 0.3 25 1 983 - 2008 Smokeless Tobacco: Never Alcohol Use Standard Drinks/Week Comments Yes 0 (1 standard drink = 0.6 oz pur e alcohol) Depression Answer Date Recorded Patient Health Questionnaire-9 Score 15 03/10/2024 Patient Health Questionnaire-9 Score 15 03/10/2024 Last PHQ-9: Questionnaire Data Not on file 0 03/10/2024 Housing Stability Answer Date Recorded What is your housing situation today? I have azalia torres 03/10/[address] you li ve. Do you have problems with any of the following? None of the above 03/10/2024 Food Insecurity Answer Date Recorded Within the past 12 months, y ou worried that your food would run out before you got money to buy more: Never True 03/10/2024 Within the past 12 months,th e food you bought just didn't last and you didn't have enough money to get more: Never True 04/2024 Transportation Answer Date Recorded In the past 12 months, has l ack of transportation kept you from medical appts, meetings, work or from getting things needed for daily living? No 03/10/2024 Utilities Answer Date Recorded In the past 12 months, has t he electric, gas, oil or water company threatened to shut off services in your home? No 03/10/2024 Depression Answer Date Recorded Patient Health Questionnaire-2 Score 6 03/10/2024 Internet Access Answer Date Recorded Internet Access Q1 Yes 03/10/2024 Internet Access Q2 Not on file 03/10/2024 Sex and Gender Information Value Date Recorded Sex Assigned at Male 12/05/2021 10:21 AM EDT Legal Sex Male 10:21 AM EDT Gender Identity Male 12/05/2021 10:21 AM EDT Sexual Orientation Straight 12/05/2021 10 :21 AM EDT documented as of this encounter Miscellaneous Notes * Telephone Encounter - Carly Aldridge RN - 03/06/2024 2:12 PM EST Date: 03/05/24 Urgent Care : [facility] Urgent [facility] Seen for: had a fall and has 6 stitches Symptomatic Yes , inform eyebrow area continues to bleed. Called pt. He states he tripped last night 03/05/24 and hit head on computer chair. No loss of consciousness but did get laceration. Went to Urgent care in [facility] and got 6 stitches in head. Was recommended to get a CT scan but pt. Does not want to wait at ED for an order. Pt. Is on Plavix and has a little drizzle from area on and off of blood where stitches have been placed. Pt. Has upcoming appt on 03/10/24 with PCP but is requesting order for Ct scan prior to appt. Advised to be seen in [facility] walk in but pt. Declines and wants televisit to speak to [facility] provider for order. Pt. Denies any headache, dizziness, nausea or double vision. Urgent care note not in chart. Pt. Seen at [facility] Phone number is [phone]. Please call Urgent care and have Pt.Note scanned into chart for televisit with Dr. Floyd for 03/07/24. Protocol Used: Head Injury (Adult) Protocol-Based Disposition: Go to ED/[facility] Now (or to Office with PCP Approval)- Pt. Went to [facility] Urgent Care in [place], [place] last night. Positive Triage Question: * Skin is split open or gaping (length > 1/2 inch or 12 mm) * All higher-acuity triage questions were negative Care Advice Discussed: * Reassurance and Education - Direct Blow (Minor Bruise, Contusion) * Use a Cold Pack for Pain, Swelling, or Bruising * Observation After a Head Injury * Telephone Encounter - Jenny Nixon - 03/06/2024 1:35 PM EST Patient calling to report ED visit on : Date: 03/05/24 Urgent Care : [facility] [place] Seen for: had a fall and has 6 stitches Symptomatic Yes , inform eyebrow area continues to bleed *if yes message should go to Triage Patient advised will forward to team nurse for follow up Pt states was advised to go to the ER to request a CT scan . Pt informs does not want to wait in a waiting room for a long period of time. Would like to know if pcp can do an order. documented in this encounter Plan of Treatment Upcoming Encounters Date Type Department Care Team (Late st Contact Info) Description 07/29/2024 1:45 PM EDT Office Visit [facility] MED & PEDS [address] [place] [address] Jenni Santiago MD [address] [place] [address] documented as of this encounter Visit Diagnoses Not on filedocumented in this encounter Additional Health Concerns Assessment Noted Time PHQ-9 Depression Total Score: 9 03/03/19 23 2:43 PM EST documented as of this encounter Care Teams Broker Relationship Specialty Start Date End Date Jenni Santiago MD [address] [place] [address] PCP - General Internal Medicine 02/05/18 documented as of this encounter
--- OUTSIDE RECORDS SUMMARY | 2024-06-12 14:00 | XMS_ITS | Encounter Summary ---
Author Organization [employer] Address [address] [facility] [address] [place] [address] Care Team Providers Care Strategic Marketing Manager Name Role Phone Jenni Santiago MD Primary Care Provider +1- [phone] Encounter Details Date Type Department Care Team (Late st Contact Info) Description 04/16/2024 Orders Only [facility] MEDICINE [address] [place] [address] Jenni Santiago MD [address] [place] [address] SOB (shortness of breath) Social History Tobacco Use Types Packs/Day Years [...] Description 07/29/2024 1:45 PM EDT Office Visit [facility] MED & PEDS [address] [place] [address] Jenni Santiago MD [address] [place] [address] documented as of this encounter Visit Diagnoses Diagnosis SOB (shortness of breath) Shortness of breath documented in this encounter Additional Health Concerns Assessment Noted Time PHQ-9 Depression Total Score: 15 025 10:01 AM EST documented as of this encounter Care Teams Strategic Marketing Manager Relationship Specialty Start Date End Date Jenni Santiago MD [address] [place] [address] PCP - General Internal Medicine 02/05/18 documented as of this encounter
--- OUTSIDE RECORDS SUMMARY | 2024-06-12 14:00 | XMS_ITS | Encounter Summary ---
Author Organization [employer] Address [address] [facility] [address] [place] [address] Care Team Providers Care Political Theory Professor Name Role Phone Jenni Santiago MD Primary Care Provider +1- [phone] Encounter Details Date Type Department Care Team (Latest Contact Info) Description 06/06/2018 Abstract [facility] CONVERSIONS Dental, Provider, DDS Social History Tobacco [...] Description 07/29/2024 1:45 PM EDT Office Visit [facility] MED & PEDS [address] [place] [address] Jenni Santiago MD [address] [place] [address] documented as of this encounter Visit Diagnoses Not on filedocumented in this encounter Care Teams Political Theory Professor Relationship Specialty Start Date End Date Jenni Santiago MD [address] [place] [address] PCP - General Internal Medicine 02/05/18 documented as of this encounter
--- OUTSIDE RECORDS SUMMARY | 2024-06-12 14:00 | XMS_ITS | Continuity of Care Document ---
Author Organization [facility] [address] [place] [address] Phone [phone] Care Team Providers Care Sap Hana Developer Name Role Phone Jenni Santiago M.D. Care Team Information Re ceiver [phone] Problems Active Problems Provider Date CVA - cerebrovascular accide nt due to cerebral artery occlusion Alexander Watters M.D. Onset: 08/23/2021 Type 2 diabetes mellitus Alexander Watters M.D. Onset: 08/23/2021 Viral hepatitis C Alexander Watters M.D. Onset: 08/23/2021 Essential hypertension Alexander Watters M.D. O nset: 11/04/2021 Hyperlipidemia Alexander Watters M.D. Onset: 0 06/05/2022 Total replacement of right knee joint Alexander Norris M.D. Onset: 02/16/2023 Social History Type Date Description Comments Sex Unknown Tobacco Use Start: Unknown Never Smoked Cigarettes Smoking Status Reviewed: 03/11/24 Never Smoked Cigaret kathe ETOH Use Rarely consumes alcohol Allergies and adverse reactions Description No Known Drug Allergies Medications Active Medications SIG Qnty Indications Ordering Provider Date Isccnw87ya Tablets 1 by mouth every day 90tabs Alexander Watters M.D. 08/31/2023 Atorvastatin Aweqojc87vf Tablets Take One Tablet Every Night AT Bedtime 90tabs Alexander Watters M.D. 02/16/2023 Qhasmocfn46hw Tablets Take One Tablet Every Night AT Bedtime 90tabs Alexander Watters M.D. 10/30/2022 Hooktegzhlojwnrmwyn53d g Tablets Take One Capsule Every Morning Alexander Watters M.D. 05/16/2022 Yiysvcdoga136rn Tablets take 1 tablet by mouth daily at bedtime 28tabs Alexander Watters M.D. 11/04/2021 Hfxishw060Wxhr/ML Solution 100 units daily via pump 90ml E11.9 Alexander Watters M.D. 09/19/2021 Stitpdpg4hk Tablets 1 by mouth at night 90tabs Unknown Venlafaxine HCL ER37.5mg Caps ER 24HR Take One Capsule Every Morning Unknown Venlafaxine HCL BJ401zj Caps ER 24HR Take One Capsule Every Morning Unknown Hylpujwclg47mt Capsules DR Take One Capsule By Mouth Every Morning Jenni Santiago M.D. SM Vitamin X748tzs Capsules Take One Capsule By Mouth Every Morning Jenni Santiago M.D. Losartan Potassium/Hydrochlorot rqjpekm391-10.5mg Tablets 1 by mouth every day Jenni Santiago M.D. Vital Signs Date Vital Result Comment 03/11/2024 2:13pm BP Systolic 130 mmHg BP Diastolic 70 mmHg Heart Rate 72 /min Height 69 inches 5'9 Weight 196.38 lb BMI (Body Mass Index) 29.0 kg/m2 Results Test Acquired Date Facility Test Result H/L Range Note Glucose Fingerstick 03/11/2024 Inhouse Glucose Fingerstick 211 Hemoglobin A1c 03/11/2024 Inhouse Hemoglobin A1c 7.6% Comp. Metabolic Panel (14) 12/04/2023 [facility] Bilirubin, Total 0.4 mg/dL 0.0-1.2 Sodium 143 mmol/L 134-144 Potassium 4.9 mmol/L 3.5-5.2 Chloride 100 mmol/L 96-106 Glucose 140 mg/dL High 70-99 BUN 20 mg/dL 8-27 Creatinine 0.95 mg/dL 0.76-1.27 eGFR 84 mL/min/1.73 >59 BUN/Creatinine Ratio 21 10-24 Carbon Dioxide, Total 20 mmol/L 20-29 Calcium 9.9 mg/dL 8.6-10.2 Protein, Total 7.7 g/dL 6.0-8.5 Albumin 5.0 g/dL High 3.8-4.8 Globulin, Total 2.7 g/dL 1.5-4.5 Alkaline Phosphatase 102 IU/L 44-121 Ast (Sgot) 26 IU/L 0-40 Alt (SGPT) 21 IU/L 0-44 TSH 12/04/2023 [facility] TSH 1.950 uIU/mL 0.450-4.5 00 Urinalysis, Complete 12/04/2023 [facility] Specific [place] 1.020 1.005-1.0 30 pH 5.5 5.0-7.5 Urine-Color Yellow Yellow Appearance Clear Clear WBC Esterase Negative Negative Protein Negative Negative/ Trace Glucose Negative Negative Ketones Negative Negative Occult Blood Negative Negative Bilirubin Negative Negative Urobilinogen,Se mi-Qn 1.0 mg/dL 0.2-1.0 Nitrite, Urine Negative Negative Microscopic Examination See Comment: 1 Microscopic Examination See below: 2 WBC None seen /hpf 0 - 5 RBC None seen /hpf 0 - 2 Epithelial Cells (non renal) None seen /hpf 0 - 10 Epithelial Cells (renal) TNP Casts None seen /lpf None seen Cast Type TNP Crystals TNP Crystal Type TNP Mucus Threads TNP Bacteria None seen None seen/Few Yeast TNP Trichomonas TNP Comment TNP Albumin/Creatin ine Ratio, Random Urine 12/04/2023 [facility] Creatinine, Urine 159.9 mg/dL Not Estab. Albumin, Urine 18.1 ug/mL Not Estab. Alb/Creat Ratio 11 mg/gcreat 0-29 3 Lipid Panel 12/04/2023 [facility] Cholesterol, Total 134 mg/dL 100-199 Triglycerides 109 mg/dL 0-149 HDL Cholesterol 48 mg/dL >39 VLDL Cholesterol David 20 mg/dL 5-40 LDL Chol Calc ([facility]) 66 mg/dL 0-99 LDL Calc Comment: TNP Hemoglobin A1c 12/04/2023 [facility] Hemoglobin A1c 8.5 % High 4.8-5.6 4 Hemoglobin A1c 12/04/2023 Inhouse Hemoglobin A1c 7.9% Glucose Fingerstick 12/04/2023 Inhouse Glucose Fingerstick 133 CBC With Differential/Pl atelet 12/04/2023 [facility] WBC 7.9 x10E3/uL 3.4-10.8 RBC 5.59 x10E6/uL 4.14-5.80 Hemoglobin 16.3 g/dL 13.0-17.7 Hematocrit 50.2 % 37.5-51.0 MCV 90 fL 79-97 MCH 29.2 pg 26.6-33.0 MCHC 32.5 g/dL 31.5-35.7 RDW 12.4 % 11.6-15.4 Platelets 245 x10E3/uL 150-450 Neutrophils 71 % Not Estab. Lymphs 14 % Not Estab. Monocytes 10 % Not Estab. Eos 4 % Not Estab. Basos 1 % Not Estab. Immature Cells TNP Neutrophils (Absolute) 5.7 x10E3/uL 1.4-7.0 Lymphs (Absolute) 1.1 x10E3/uL 0.7-3.1 Monocytes(Absol [place]) 0.8 x10E3/uL 0.1-0.9 Eos (Absolute) 0.3 x10E3/uL 0.0-0.4 Baso (Absolute) 0.1 x10E3/uL 0.0-0.2 Immature Granulocytes 0 % Not Estab. Immature Grans (Abs) 0.0 x10E3/uL 0.0-0.1 NRBC TNP Hematology Comments: TNP Hemoglobin A1c 08/31/2023 Inhouse Hemoglobin A1c 7.3% Glucose Fingerstick 08/31/2023 Inhouse Glucose Fingerstick 176 Glucose Fingerstick 05/29/2023 Inhouse Glucose Fingerstick 198 Lipid Panel 05/28/2023 [facility] Cholesterol, Total 137 mg/dL 100-199 Triglycerides 93 mg/dL 0-149 HDL Cholesterol 47 mg/dL >39 VLDL Cholesterol David 18 mg/dL 5-40 LDL Chol Calc ([place]) 72 mg/dL 0-99 Non-HDL Cholesterol 90 mg/dL 0-129 Comment: TNP Hemoglobin A1c 05/28/2023 [facility] Hemoglobin A1c 7.2 % High 4.8-5.6 5 C-Peptide, Serum 05/28/2023 [facility] C-Peptide, Serum 1.7 ng/mL 1.1-4.4 6 Glucose 05/28/2023 [facility] Glucose 209 mg/dL High 70-99 Hemoglobin A1c 02/16/2023 Inhouse Hemoglobin A1c 7.3% Glucose Fingerstick 02/16/2023 Inhouse Glucose Fingerstick 121 Hemoglobin A1c 11/15/2022 Inhouse Hemoglobin A1c 7.6% Glucose Fingerstick 11/15/2022 Inhouse Glucose Fingerstick 221 Hemoglobin A1c 08/15/2022 Inhouse Hemoglobin A1c 7.7% Glucose Fingerstick 08/15/2022 Inhouse Glucose Fingerstick 163 TSH With Reflex To FT4 08/14/2022 [facility] TSH With Reflex To FT4 1.45 uIU/mL (0.4-4.2) Urinary Microalbumin 08/14/2022 [facility] [id number] Duplicate Order Free And Total PSA 08/14/2022 [facility] Total PSA 0.1 NG/ML (0-4) 7 Free PSA <0.1 NG/ML Percent Free PSA THEREFORE, THE P <SEE NOTE> % (25-100) 8 Complete Abc With Diff 08/14/2022 [facility] WBC 7.6 K/MM3 (4.0-11.0 ) RBC 5.65 M/MM3 (4.70-6.1 0) HGB 16.2 GM/DL (13.7-17. 1) HCT 51.8 % High (40.5-50. 0) MCV 91.7 FL (80.0-94. 0) MCH 28.7 pg (27.0-34. 0) MCHC 31.3 g/dL Low (33.0-37. 0) PLT 243 K/MM3 (150-460) RDW-SD 44.5 FL (<47.0) MPV 10.4 FL (9.4-12.4 ) Automated NRBC 0.0 #/100WBC'S Abs. NRBC 0.0 K/MM3 Neut # 5.1 K/MM3 (1.3-7.0) Lymph # 1.6 K/MM3 (0.8-3.1) [place]# 0.7 K/MM3 (0.4-1.3) Eo # 0.1 K/MM3 (0.0-0.4) Baso # 0.1 K/MM3 (0.0-0.1) Abs. Imm Gran 0.0 K/MM3 Neut 67.4 % (44-76) Lymph 20.6 % (15-43) Monocyte 9.2 % (4.5-10.5 ) Eo 1.7 % (0-6) Baso 0.7 % (0-2) Imm Gran 0.4 % Urinalysis Complete 08/14/2022 [facility] [id number] Duplicate Order Comprehensive Metabolic Panl 08/14/2022 [facility] Glucose 130 mg/dL High (70-99) BUN 17 mg/dL (8-23) Creatinine 0.7 mg/dL (0.7-1.2) Sodium 141 mmol/L (133-145) Potassium 4.8 mmol/L (3.6-5.2) Chloride 102 mmol/L (98-107) Bicarbonate 28 mmol/L (22-29) Anion Gap 11 (4-17) Albumin 4.2 GM/DL (3.4-4.8) Calcium 9.5 mg/dL (8.6-10.5 ) Bilirubin,Total 0.7 mg/dL (0-1.2 ) Total Protein 6.3 GM/DL (6.2-8.2 ) Ag Ratio 2.0 Ast 19 U/L (0-40) Alk Phos 87 U/L (40-129) Alt 17 U/L (0-41) Estimated GFR Creatinine 99 ML/MIN/1.73 M2 9 Urinalysis Complete 08/14/2022 [facility] Appear/Color YELLOW 10 SP. [place] 1.022 (1.002-1. 030) Urine PH 6.0 (5.0-8.0) Urine Albumin TRACE Abnormal (Neg) Urine Glucose NEGATIVE (Neg) Urine Ketones NEGATIVE (Neg) Urine Bilirubin NEGATIVE (Neg) Urine Hemoglobin NEGATIVE (Neg) Urine Nitrite NEGATIVE (Neg) Urine Leukocyte NEGATIVE (Neg) Urobilinogen NORMAL mg/dL (Norm) Urine WBCs <1 /HPF (0-5) Urine RBCs 1 /HPF (0-3) Bacteria SLIGHT HPF Abnormal (Neg) Mucus SLIGHT /LPF Urinary Microalbumin 08/14/2022 [facility] Micro-Albumin 17.0 mg/L (<20) 11 Malb/Creat Ratio 13.1 MG/GM (0-20) Urine Creat For Micro Albumin 126.1 mg/dL Hemoglobin A1c 05/16/2022 Inhouse Hemoglobin A1c 7.2% Glucose Fingerstick 05/16/2022 Inhouse Glucose Fingerstick 164 Hemoglobin A1c 02/15/2022 Inhouse Hemoglobin A1c 7.0% Glucose Fingerstick 02/15/2022 Inhouse Glucose Fingerstick 143 Lipid Panel 11/22/2021 [facility] Cholesterol, Total 174 mg/dL (<200) Triglyceride 162 mg/dL High (<150) HDL Chol 43 mg/dL (>39) LDL Cholesterol, Calculated 99 mg/dL (0-130) Non HDL Cholesterol (Calc) 131 mg/dL (<160) Hemoglobin A1c 11/04/2021 Inhouse Hemoglobin A1c 7.8% Glucose Fingerstick 11/04/2021 Inhouse Glucose Fingerstick 150 1 Microscopic follows if indicated. 2 Microscopic was gomez cated and was performed. 3 Normal: 0 - 29 Moderately increased: 30 - 300 Severely increased: >300 4 Prediabetes: 5.7 - 6 .4 Diabetes: >6.4 Glycemic control for adults with diabetes: <7.0 5 Prediabetes: 5.7 - 6 .4 Diabetes: >6.4 Glycemic control for adults with diabetes: <7.0 6 C-Peptide reference interval is for fasting patients. 7 TEST PERFORMED USING THE JANES ELECTROCHEMILLUMINESCENCE TOTAL PSA ASSAY. PSA VALUES OBTAINED WITH OTHER ASSAY METHODS OR KITS CANNOT BE USED INTERCHANGEABLY. 8 THEREFORE, THE PERCE NT FREE PSA VALUES WILL NOT BE CALCULATED OR REPORTED WHEN THE TOTAL PSA IS LESS THAN 4.0 OR ABOVE 10.0 NG/ML. TESTING PERFORMED USING THE JANES ELECTROCHEMILLUMINESCENCE TOTAL AND FREE PSA ASSAYS. VALUES OBTAINED WITH OTHER ASSAY METHODS OR KITS CANNOT BE USED INTERCHANGEABLY. 9 Creatinine based est imated glomerular filtration (eGFR) in adults is calculated using the National [employer] recommended 2020 CKD-EPI equation. Estimates GFR from serum creatinine, age and sex. 10 CLEAR 11 The urine microalbum in test is designed to monitor renal function. When screening for Bence Stone proteinuria, urine electrophoresis is recommended. Procedures Date Code Description Status 03/11/2024 80060 Glucose Monitoring Interpeta tion And Report Completed 08/31/2023 80217 Glucose Monitoring Interpeta tion And Report Completed 05/29/2023 82661 Glucose Monitoring Interpeta tion And Report Completed 02/16/2023 58288 Glucose Monitoring Interpeta tion And Report Completed 11/15/2022 00353 Glucose Monitoring Interpeta tion And Report Completed 05/16/2022 23244 Glucose Monitoring Interpeta tion And Report Completed 02/15/2022 16149 Glucose Monitoring Interpeta tion And Report Completed 02/03/2022 NSHOWOFF No Show Office Visit Complet ed 11/04/2021 06691 Glucose Monitoring Interpeta tion And Report Completed Medical Devices Description No Information Available Encounters Type Date Location Provider Dx Diagnosis Office Visit 02/12/2024 10:45a Main Office Alexander Watters M.D. E11.9 Type 2 diabetes mellitus without complications E78.5 Hyperlipidemia, unsp ecified Assessments Date Code Description Provider 03/11/2024 E11.9 Type 2 diabetes mellitus without complications Alexander Watters M.D. 03/11/2024 I63.50 CVA - cerebrovas cular accident due to cerebral artery occlusion Alexander Watters M.D. Plan of Treatment Future Appointment(s):* 07/22/2024 2:15 pm - Alexander Watters M.D. at Main Office 03/11/2024 - Alexander Watters M.D.* E11.9 Type 2 diabetes mellitus without complications * I63.50 CVA - cerebrovascular accident due to cerebral artery occlusion Functional Status Description No Information Available Mental Status Description No Information Available Referrals Description No Information Available
--- OUTSIDE RECORDS SUMMARY | 2024-06-12 14:00 | XMS_ITS | Encounter Summary ---
Author Organization [employer] Address [address] [facility] [address] [place] [address] Care Team Providers Care Real Estate Professional Name Role Phone Jenni Santiago MD Primary Care Provider Encounter Details Date Type Department Care Team (Late Contact Info) Description 01/05/2022 Abstract [facility] MEDICINE [address] [place], [place] [phone] Jenni Santiago MD [address] [place], [place] [phone] Essential hypertension (Primary Dx); Gastroesophageal reflux disease without esophagitis; Depressive disorder; Dry skin; Type 2 diabetes mellitus without complication, with long-term current use of insulin ([facility]) Social History Tobacco Use Types Packs/Day Years [...] Encounters Date Type Department Care Team (Late Contact Info) Description 07/29/2024 1:45 PM EDT Office Visit [facility] MED & PEDS [address] [place], [place] [phone] Jenni Santiago MD [address] [place], [place] [phone] documented as of this encounter Visit Diagnoses Diagnosis Essential hypertension- Primary Unspecified essential hypertension Gastroesophageal reflux disease without esophagitis Esophageal reflux Depressive disorder Depressive disorder, not elsewhere classified Dry skin Other symptoms involving skin and integumentary tissues Type 2 diabetes mellitus without complication, with long-term current use of insulin ([facility]) documented in this encounter Care Teams Real Estate Professional Relationship Specialty Start Date End Date Jenni Santiago MD [address] [place] [address] PCP - General Internal Medicine 02/05/18 documented as of this encounter
--- OUTSIDE RECORDS SUMMARY | 2024-06-12 14:01 | XMS_ITS | Encounter Summary ---
Author Organization [employer] Address [address] [facility] [address] [place] [address] Care Team Providers Care Geophysical Party Chief Name Role Phone Jenni Santiago MD Primary Care Provider [phone] Reason for Visit * Reason Onset Date Comments Appointment Request 01/03/2023 Encounter Details Date Type Department Care Team ([facility] st Contact Info) Description 01/03/2023 Telephone [facility] MEDICINE [address] [place] [address] Jenni Santiago MD [address] [place] [address] Appointment Request Social History Tobacco Use Types Packs/Day Years Used Date Smoking Tobacco: Former Cigarettes 0.3 25 1 983 - 2007 Smokeless Tobacco: Never Alcohol Use Standard Drinks/Week Comments Yes 0 (1 standard drink = 0.6 oz pur e alcohol) Depression Answer Date Recorded Patient Health Questionnaire-9 Score 9 03/03/2022 Housing Stability Answer Date Recorded What is your housing situation today? I have azaliadonell torres 11/14/[address] you [...] encounter Miscellaneous Notes * Telephone Encounter - Salma Doe RN - 01/04/2023 10:52 AM EST Returned call to pt regarding message below. Pt informed that unfortunately the [facility] office does nothave COVID IZ or RSV vaccines. Pt advised to call local pharmacies and see if they have new RSV vaccine and if pt would like, appt can be booked in our [place] [facility] for the COVID and Flu. Pt states he will call pharmacy to see if they have all three as pt would like to get them at the same time and if not possible will return call to schedule Iz's at vaccine clinic. * Telephone Encounter - Salma Doe RN - 01/04/2023 10:40 AM EST error * Telephone Encounter - Tammy Gaines - 01/03/2023 1:15 PM EST Tc from pt requesting appt for flu, covid and rsv shots. documented in this encounter Plan of Treatment Upcoming Encounters Date Type Department Care Team (Late st Contact Info) Description 07/29/2024 1:45 PM EDT Office Visit [facility] MED & PEDS [address] [place] [address] Jenni Santiago MD [address] [place] [address] documented as of this encounter Visit Diagnoses Not on filedocumented in this encounter Additional Health Concerns Assessment Noted Time PHQ-9 Depression Total Score: 9 03/03/19 23 2:43 PM EST documented as of this encounter Care Teams Geophysical Party Chief Relationship Specialty Start Date End Date Jenni Santiaog MD [address] [place] [address] PCP - General Internal Medicine 02/05/18 documented as of this encounter
--- OUTSIDE RECORDS SUMMARY | 2024-06-12 14:01 | XMS_ITS | Encounter Summary ---
Author Organization [employer] Address [address] [facility] [address] [place] [address] Care Team Providers Care Detective Narcotics And Vice Name Role Phone Jenni Santiago MD Primary Care Provider [phone] Reason for Visit * Reason Onset Date Comments Med Refill 12/27/2022 Encounter Details Date Type Department Care Team ([facility] st Contact Info) Description 12/27/2022 Telephone [facility] MED & PEDS [address] [place] [address] Jenni Santiago MD [address] [place] [address] Med Refill Social History Tobacco Use Types Packs/Day Years [...] encounter Miscellaneous Notes * Telephone Encounter - Jesika Alves - 12/27/2022 9:19 AM EST Tc from pt requesting medication refill on Eliquis 2.5 MG tablet to be sent to [facility] pharmacy documented in this encounter Plan of Treatment Upcoming Encounters Date Type Department Care Team (Late st Contact Info) Description 07/29/2024 1:45 PM EDT Office Visit [facility] MED & PEDS [address] [place] [address] Jenni Santiago MD [address] [place] [address] documented as of this encounter Visit Diagnoses Not on filedocumented in this encounter Additional Health Concerns Assessment Noted Time PHQ-9 Depression Total Score: 9 03/03/19 23 2:43 PM EST documented as of this encounter Care Teams Detective Narcotics And Vice Relationship Specialty Start Date End Date Jenni Santiago MD [address] [place] [address] PCP - General Internal Medicine 02/05/18 documented as of this encounter
--- OUTSIDE RECORDS SUMMARY | 2024-06-12 14:01 | XMS_ITS | Encounter Summary ---
Author Organization [employer] Address [address] [facility] [address] [place] [address] Care Team Providers Care Vending Machine Technician Name Role Phone Jenni Santiago MD Primary Care Provider [phone] Encounter Details Date Type Department Care Team (Late st Contact Info) Description 07/05/2023 Orders Only [facility] [address] [place] [address] Provider, MD Hai Social History Tobacco Use Types Packs/Day Years Used Date Smoking Tobacco: Former Cigarettes 0.3 25 1 3 - 2007 Smokeless Tobacco: Never Alcohol Use [...] Description 07/29/2024 1:45 PM EDT Office Visit [facility] MED & PEDS [address] [place], [place] [phone] Jenni Santiago MD [address] [place] [address] documented as of this encounter Procedures Procedure Name Priority Date/Time Associated Diagnosis Comments XR CHEST PORTABLE Routine 07/05/2023 2:22 PM EDT documented in this encounter Results * XR Chest Portable (07/05/2023 2:22 PM EDT) Anatomical Region Laterality Modality Radiographic Steffanie ging us Historical Provider MD RODRIGEZ XR PROCEDURES Final R esult documented in this encounter Visit Diagnoses Not on filedocumented in this encounter Additional Health Concerns Assessment Noted Time PHQ-9 Depression Total Score: 9 03/03/19 23 2:43 PM EST documented as of this encounter Care Teams Vending Machine Technician Relationship Specialty Start Date End Date Jenni Santiago MD [address] [place] [id number] PCP - General Internal Medicine 02/05/18 documented as of this encounter
--- OUTSIDE RECORDS SUMMARY | 2024-06-12 14:01 | XMS_ITS | Encounter Summary ---
Author Organization [employer] Address [address] [facility] [address] [place] [address] Care Team Providers Care Watcher Automat [employer]s Name Role Phone Jenni Santiago MD Primary Care Provider [phone] Reason for Visit * Reason Onset Date Comments callback requested 01/15/2024 Encounter Details Date Type Department Care Team ([facility] st Contact Info) Description 01/15/2024 Telephone [facility] MEDICINE [address] [place] [address] Jenni Santiago MD [address] [place] [address] callback requested Social History Tobacco Use Types Packs/Day Years [...] Telephone Encounter - Salma Doe RN - 01/15/2024 10:32 AM EST Pt was not referred by our office. No action is needed at this time. * Telephone Encounter - Alicia Michael - 01/15/2024 10:10 AM EST Tc from pt requesting a call back as pt currently received a call from a facility for a cardiology appointment and he will like to know why are they calling him. Callback [phone] documented in this encounter Plan of Treatment Upcoming Encounters Date Type Department Care Team (Late st Contact Info) Description 07/29/2024 1:45 PM EDT Office Visit [facility] MED & PEDS [address] [place] [address] Jenni Santiago MD [address] [place] [address] documented as of this encounter Visit Diagnoses Not on filedocumented in this encounter Additional Health Concerns Assessment Noted Time PHQ-9 Depression Total Score: 9 03/03/19 2:43 PM EST documented as of this encounter Care Teams Watcher [employer] Relationship Specialty Start Date End Date Jenni Santiago MD [address] [place] [address] PCP - General Internal Medicine 02/05/18 documented as of this encounter
--- OUTSIDE RECORDS SUMMARY | 2024-06-12 14:01 | XMS_ITS | Clinical Summary ---
Author Organization [employer] Address [address] [facility] [address] 7[address] [place] [address] Care Team Providers Care Hands Parter Name Role Phone Jenni Santiago MD Primary Care Provider [phone]- [phone] Allergies Active Allergy Reactions Criticality Noted Date Comments Pollen Extract 10/02/2022 Medications * This document contains information received from the source organization and may not represent a complete record from that organization. ammonium lactate (AmLactin) 12 % lotionIndication s:Dry skin Apply to affected area daily after shower. 500 g 3 03/13/19 23 Active diazePAM (Valium) 5 MG tablet Take 1 tablet by mouth if needed at bedtime. 11/28/19 23 Active ezetimibe (Zetia) 10 MG tablet Take 1 tablet by mouth at bedtime. 11/02/19 23 Active finasteride (Proscar) 5 MG tablet Take 1 tablet by mouth at bedtime. 11/28/19 23 Active Accu-Chek Guide test strip TEST BLOOD SUGAR 5-6 TIMES DAILY 11/23/19 23 Active Insulin Lispro 100 UNIT/ML solution INJECT 100 UNITS via pump daily 10/20/19 23 Active venlafaxine XR (Effexor XR) 150 MG 24 hr capsule Take 1 capsule by mouth in the morning. 09/29/19 23 Active gabapentin (Neurontin) 600 MG tablet Take 1 tablet by mouth if needed in the morning and at bedtime. 09/29/19 23 Active Accu-Chek FastClix Lancets misc USE 5-6 TIMES daily 11/01/19 23 Active glucose 4 g chewable tabletIndication s:Type 2 diabetes mellitus without complication, with long-term current use of insulin (CMS/HCC) Chew 4 tablets (16 g) if needed for low blood sugar. 50 tablet 12 01/31/20 23 Active omeprazole (PriLOSEC) [address] capsule TAKE ONE CAPSULE EVERY MORNING 30 capsule 5 04/16/19 24 Active Misc. Devices (Pulse Oximeter For Finger) miscIndications: COVID-19 To use every 4 hours. Call the office if O2 Sat < 90% 1 each 05/09/19 24 Active losartan-hydroCH LOROthiazide (Hyzaar) 100-12.5 MG tablet TAKE ONE TABLET EVERY MORNING 30 tablet 11 07/10/19 24 Active amLODIPine (Norvasc) 5 MG tabletIndication s:Essential hypertension TAKE ONE TABLET BY MOUTH EVERY MORNING 90 tablet 3 07/17/19 24 Active guaiFENesin (Mucinex) 600 MG 12 hr tabletIndication s:Chest congestion Take 2 tablets (1,200 mg) by mouth 2 times daily. Do not crush, chew, or split. 120 tablet 11 08/20/19 24 025 Active hyoscyamine ER (Levbid) 0.375 MG 12 hr tabletIndication s:Drooling Take 1 tablet (0.375 mg) by mouth every 12 (twelve) hours if needed for cramping. Do not crush or chew. 60 tablet 12 12/06/19 24 025 Active atorvastatin (Lipitor) 40 MG tablet Take 1 tablet by mouth at bedtime. Active aspirin 81 MG EC tablet Take 81 mg by mouth Once per day. 01/22/20 24 Active aspirin 81 MG EC tabletIndication s:Cerebrovascula r accident (CVA) due to other mechanism (CMS/HCC) Take 1 tablet (81 mg) by mouth Once per day. 30 tablet 11 01/29/20 24 025 Active famotidine (Pepcid) 20 MG tabletIndication s:Type 2 diabetes mellitus without complication, with long-term current use of insulin (CMS/HCC),Gastro esophageal reflux disease with esophagitis without hemorrhage TAKE ONE TABLET IN THE MORNING AND EVENING 60 tablet 11 02/04/20 24 Active amoxicillin (Amoxil) 500 MG capsule Take 4 tabs (2 grams) 1 hour prior to dental procedure 12 capsule 03/14/19 25 Active escitalopram (Lexapro) 5 MG tablet TAKE ONE TABLET EVERY MORNING 30 tablet 1 04/12/19 25 Active cholecalciferol VITAMIN D (Vitamin D-3) 50 MCG (2000 UT) capsule TAKE ONE CAPSULE EVERY MORNING 90 capsule 3 05/06/19 25 Active albuterol 108 (90 Base) MCG/ACT inhalerIndicatio ns:SOB (shortness of breath) Inhale 2 puffs every 4 (four) hours if needed for wheezing. 18 g 3 05/10/19 25 026 Active amoxicillin (Amoxil) 500 MG capsule Take 4 tabs (2 grams) 1 hour prior to dental procedure 16 capsule 3 05/10/19 25 Active cetirizine (ZyrTEC) 10 MG tabletIndication s:Drooling TAKE ONE TABLET EVERY MORNING 30 tablet 1 06/03/19 25 Active clopidogrel (Plavix) 75 MG tablet TAKE ONE TABLET EVERY MORNING 30 tablet 1 06/03/19 25 Active clopidogrel (Plavix) 75 MG tablet TAKE ONE TABLET EVERY MORNING 30 tablet 1 04/12/19 25 025 Discontinued cetirizine (ZyrTEC) 10 MG tabletIndication s:Drooling TAKE ONE TABLET EVERY MORNING 30 tablet 1 04/12/19 25 025 Discontinued Active Problems Problem Noted Date Diagnosed Date Cyst of his upper back 11/16/2023 Assessment & Plan (11/16/2023 2:42 PM EDT): Will refer to general surgery for evaluation and assessment of cyst. Cellulitis and abscess of trunk 10/29/2023 Assessment & Plan (10/30/2023 6:44 PM EDT): Infected presumed sabecous cyst not yet fluctuant. Rx for cellulitis prescribed, advised frequent warm soaks and reassesment for likely I&D tomorrow with pcp. 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 Date Type Department Care Team Description 06/02/2024 Refill [facility] MED & PEDS [address] [place] [address] Jenni Santiago MD Drooling 05/09/2024 1:00 PM EDT Office Visit [facility] ADULT DENTAL [address] [place] [address] Bee Mcgee, HAN 05/09/[address] [address] Jenni Santiago MD Nurse Triage 05/09/[address] [address] Jenni Santiago MD SOB (shortness of breath) 05/03/2024 Refill [facility] [address] [place] [address] Jenni Santiago MD 04/23/2024 11:15 AM EDT Office Visit [facility] [address] [place] [address] Jenni Santiago MD Influenza A (Primary Dx); SOB (shortness of breath); Essential hypertension 04/23/2024 Travel 04/22/2024 2:00 PM EDT Office Visit [facility] AD[facility] [address] [place] [address] Bee Mcgee DMD 04/16/2024 Orders Only [facility] MED[facility] [address] [place] [phone] Jenin Santiago MD SOB (shortness of breath) 04/16/2024 Telephone [facility] [address] [place] [address] Jenni Santiago MD ER Follow-up 04/16/2024 Refill [facility] [address] [place] [address] Jenni Santiago MD SOB (shortness of breath) 04/14/2024 Telephone [facility] [address] [place] [address] Jenni Santiago MD Nurse Triage 04/11/2024 Refill [facility] [address] [place] [address] Jenni Santiago MD Drooling 04/10/2024 Telephone [facility] [address] [place] [address] Jenni Santiago MD 04/07/2024 Telephone [facility] [address] [place] [address] Jenni Santiago MD Nurse Triage 04/03/2024 Telephone [facility] [address] [place] [address] Jenni Santiago MD TC from Pt to Cancel Sick Appt 04/02/2024 2:00 PM EST Office Visit [facility] ADULT DENT[facility] [address] [place] [address] Macey Doyle, DDS 04/01/2024 Telephone [facility] [address] [place] [address] [phone] Mirtha Washington, JENNIFER 04/01/2024 Telephone [facility] [address], [place] [phone] Jenni Santiago MD Results from Last 3 Months Immunizations Name Administration Dates Next Due Influenza High-dose Quadriva lent Preservative Free 11/24/2021,12/06/2020,12/03/2019 Influenza Quadrivalent Adjuvanted 01/17/2023 Influenza injectable quadriv alent IIV4 with preservative 10/25/2015,10/21/2014 Influenza injectable quadriv alent preservative free 11/01/2018 Influenza, IIV3, injectable 12/02/2013 Influenza, Split (incl. mateo fied surface antigen) 11/22/2012,10/06/2011 Moderna Covid-19 Vaccine 12+ 12/06/2020 Pfizer Covid-19 Vaccine 12+ 05/04/2020, Pfizer Covid-19 Vaccine 12+ Bivalent 12/09/2021 Pneumococcal Conjugate PCV 13 02/01/2017 Pneumococcal Polysaccharide PPSV23 11/01/2018 RSV Adjuvant 01/17/2023 Tdap 02/01/2017 Zoster, Recombinant 09/17/2019,11/01/2018 Social History Tobacco Use Types Packs/Day Years Used Date Smoking Tobacco: Former Cigarettes 0.3 25 1 983 - 2008 Smokeless Tobacco: Never Tobacco Cessation:Counseling Given: Not Answered Alcohol Use Standard Drinks/Week Comments Yes 0 [...] Orientation Straight 12/05/2021 10 :21 AM EDT Last Filed Vital Signs Vital Sign Reading Time Taken Comments Blood Pressure 130/78 05/09/2024 1:13 PM EDT Pulse 67 05/09/2024 1:13 PM EDT Temperature 36.5 ??C (97.7 ??F) 04/23/2024 11:19 AM E DT Respiratory Rate 20 04/23/2024 11:19 AM EDT Oxygen Saturation 97% 04/23/2024 11:19 AM EDT Inhaled Oxygen Concentration - - Weight 88.7 kg (195 lb 9.6 oz) 04/23/2024 11:19 AM EDT Height 172.7 cm (5' 8 ) 04/23/2024 11:19 AM EDT Body Mass Index 29.74 04/23/2024 11:19 AM EDT Plan of Treatment Upcoming Encounters Date Type Department Care Team ([facility] st Contact Info) Description 07/29/2024 1:45 PM EDT Office Visit [facility] MED [facility] PEDS [address] [place] [address] Jenni Santiago MD [address] [place] [address] Health Maintenance Due Date Last Done Comments CT Colonography 1950 Colonoscopy 1950 Colorectal Cancer Screening 1950 FIT DNA/Cologuard 1949 FIT 1949 FOBT 1950 Sigmoidoscopy 1949 Diabetes: Foot Exam 08/26/1959 Eye Exam 08/26/1959 Hepatitis A Vaccines (1 of 2 - Risk 2-dose series) 1968 Hepatitis B Vaccines (1 of 3 - Risk 3-dose series) 2009 Diabetes: Hemoglobin A1C 06/07/2024 025, 12/06/2023, 08/20/2023, Additional history exists Lipid Panel 08/19/2024 08/20/2023 Dental Oral Exam 09/12/2024 03/14/2024, , 09/11/2022, Additional history exists Dental Prophylaxis 09/12/2024 03/14/2024, 0 05/03/2023, 09/11/2022, Additional history exists Diabetes: Urine Protein Screening 10/31/2024 11/01/2023 Alcohol/Substance Use Screening 03/10/2025 03/10/2024 Depression Screening 03/10/2025 03/10/2024, 03/10/19 SDOH Screening 03/10/2025 03/10/2024 Dental X-Ray: Bitewings 03/15/2025 03/14/19, 09/11/2022, 11/03/2021, Additional history exists Tobacco Screening 05/09/2025 05/09/2024 Dental X-Ray: Full Mouth 03/15/2027 025, 11/20/2017, 04/29/2014, Additional history exists DTaP/Tdap/Td Vaccines (3 - Td or Tdap) 03/05/2034 03/05/2024, 02/01/2017 Pneumococcal Vaccine: 50+ Years Completed 11/01/2018, 02/01/2017 Zoster Vaccines Completed 09/17/2019, 11/01/2018 RSV Patients and Patients Aged 60 years or older Completed 01/17/2023 COVID-19 Vaccine Completed 12/10/2023, , 12/09/2021, Additional history exists Influenza Vaccine Completed 12/10/2023, , 11/24/2021, Additional history exists HIB Vaccines Aged Out No longer eligi ble based on patient's age to complete this topic HPV Vaccines Aged Out No longer eligi ble based on patient's age to complete this topic IPV Vaccines Aged Out No longer eligi ble based on patient's age to complete this topic Meningococcal Vaccine Aged Out No ernie junaid eligible based on patient's age to complete this topic RSV under 20 months Aged Out No longe r eligible based on patient's age to complete this topic Rotavirus Vaccines Aged Out No longer eligible based on patient's age to complete this topic Procedures Procedure Name Priority Date/Time Associated Diagnosis Comments CASE PRESENTATION, DETAILED AND EXTENSIVE TREATMENT PLANNING Routine 05/09/2024 1:00 PM EDT 11 DFF(V)L RESIN-BASED COMPOSITE - 3 SURF, ANTERIOR Routine 05/09/2024 1:00 PM EDT 19 B RESIN-BASED COMPOSITE - 1 SURF, POSTERIOR Routine 05/09/2024 1:00 PM EDT CASE PRESENTATION, DETAILED AND EXTENSIVE TREATMENT PLANNING Routine 04/22/2024 2:00 PM EDT DENTURE FOLLOWUP Routine 04/22/2024 2:00 PM EDT CASE PRESENTATION, DETAILED AND EXTENSIVE TREATMENT PLANNING Routine 04/02/2024 2:00 PM EST 2,3,14,15 MAXILLARY PARTIAL DENTURE - RESIN BASE (INCLUDING, RETENTIVE/CLASPING MATERIALS, RESTS, AND TEETH) Routine 04/02/2024 2:[address] HEAD WO CONTRAST Urgent 03/28/2024 Injury of forehead, subsequent encounter AMB REFERRAL TO SPEECH THERAPY Routine 03/27/2024 Cerebrovascular accident (CVA) due to other mechanism ([facility]) PROPHYLAXIS - ADULT Routine 03/14/2024 2 :00 PM EST INTRAORAL - COMPLETE SERIES OF RADIOGRAPHIC IMAGES Routine 03/14/2024 2:00 PM EST PERIODIC ORAL EVALUATION - ESTABLISHED PATIENT Routine 03/14/2024 2:00 PM EST POCT GLYCATED HEMOGLOBIN, TOTAL Routine 03/10/2024 10:21 AM EST Type 2 diabetes mellitus without complication, with long-term current use of insulin ([facility]) ALBUMIN, RANDOM URINE W/CREATININE Routine 11/01/2023 1:00 PM EDT Type 2 diabetes mellitus without complication, with long-term current use of insulin ([facility]) LIPID PANEL, STANDARD Routine 08/20/2023 12:24 PM EDT Type 2 diabetes mellitus without complication, with long-term current use of insulin ([facility]) Mixed hyperlipidemia from Last 3 Months or Most Recently Relevant to Health Maintenance Results * CT Head w/o Contrast (03/28/2024) Anatomical Region Laterality Modality Head, Neck Computed Tomogra phy us Steve Thompson MD IMG CT PROCEDURES Final Result * Referral to Speech Therapy (03/27/2024) us Jenni Santiago MD OUTPATIENT REFERRAL ORDERAB LES Final Result * (ABNORMAL) POCT HGB A1C (03/10/2024 10:21 AM EST) Hemoglobin A1C 7.5(A) 4.0 - 6.0 % QC Media Lot # [id number] Lot# Expiration Date [id number] Blood 03/10/2024 10:2 1 AM EST us Jenni Santiago MD POINT OF CARE TEST ENTER/ED IT ORDERABLES Final Result * Albumin, Random Urine W/Creatinine (11/01/2023 1:00 PM EDT) Creatinine, Urine 135.32 mg/dL [facility] Microalbumin Urine 24.0 mg/L H [facility] Microalbum Creatinine Ratio Ur 17.7 <30 ug/mg cr [facility] Comment:Albumin/Creatinine R atio Reference Ranges: Normal: < 30 ug/mg creatinine Microalbuminuria: 30 - 300 ug/mg creatinineClinical Albuminuria: > 300 ug/mg creatinine Urine (Urine, Random) 11/01/2023 1:00 PM EDT 11/01/2023 2:10 PM EDT us Jenni Santiago MD LAB URINE ORDERABLES Final Result [facility] [address] [place] [phone] * (ABNORMAL) Lipid Panel, Standard (08/20/2023 12:24 PM EDT) Triglycerides 158(H) <150 mg/dL [facility] Comment:Desirable Triglyceri de: less than 150 mg/dLBorderline High Triglyceride 150-199 mg/dLHigh Triglyceride: 200-499 mg/dLVery High Triglyceride: greater than or equal to 5OO mg/dL Cholesterol 130 <200 mg/dL [facility] Comment:Desirable Cholestero l: less than 200 mg/dLBorderline High Cholesterol: 200-239 mg/dLHigh Cholesterol: greater than 239 mg/dL LDL Cholesterol Calculated 60 <100 mg/dL [facility] Comment:Desirable LDL: less than 100 mg/dLNear Optimal/Above Optimal LDL: 110- 129 mg/dLBorderline High LDL: 130-159 mg/dLHigh LDL: 160-189 mg/dLVery High LDL: greater than or equal to 190 mg/dL HDL Cholesterol 39(L) >40 mg/dL [facility] Comment:Desirable HDL: great er than 40 mg/dL Note: This HDL assay may give artificially low results in patients with liver disease. Blood Venous blood specimen / Unknown 08/20/2023 12:24 PM EDT 08/20/2023 2:23 PM EDT us Jenni Santiago MD LAB BLOOD ORDERABLES Final Result [facility] [address] [place] [address] [phone] from Last 3 Months or Most Recently Relevant to Health Maintenance Insurance [place] [address] [place] [phone] [facility] MEDICAID STAND ADULT Care Teams Hands Parter Relationship Specialty Start Date End Date Jenni Santiago MD [address] [place] [phone] PCP - General Internal Medicine 02/05/18
--- OUTSIDE RECORDS SUMMARY | 2024-06-12 14:01 | XMS_ITS | Encounter Summary ---
Author Organization [employer] Address [address] [facility] [address]t [place] [address] Care Team Providers Care Breakdown Man Name Role Phone Jenni Santiago MD Primary Care Provider [phone]- [phone] Reason for Visit * Reason Onset Date Comments ER Follow-up 12/26/2022 Encounter Details Date Type Department Care Team (Late st Contact Info) Description 12/26/2022 Telephone [facility] [address] [place] [address] Jenni Santiago MD [address] [place] [address] ER Follow-up Social History Tobacco Use Types Packs/Day Years [...] Telephone Encounter - Salma Doe RN - 12/27/2022 2:16 PM EST Returned call to pt regarding message below. LVM to return call to nurses. * Telephone Encounter - Bernarda Velásquez RN - 12/27/2022 10:28 AM EST Tc from pt calling to report the ED visit in regards to message above. Pt was seen at [facility] on 12/26 and states they found nothing . Pt states they did an ultrasound and labs and tests came out negative. Was advised will forward to team nurses for f/u Please contact pt at [phone] TC placed to patient regarding above message. Patient reports that he went to the ED because of theelevated d-dimer and that their tests did not reveal a clot, but of course it is still a risk. Patient states that his Eliquis prescription from his surgeon is running out today. He would like to know if he should continue on this medication, and if so, he will need Dr. Santiago to refill it. Patient scheduled for follow up visit with Dr. Santiago on , 01/11/23 @ 11:15. Looking for ED records from [facility] to send to scan. Routing to Dr. Santiago for review of Eliquis script. * Telephone Encounter - Jesika Alves - 12/27/2022 9:21 AM EST Tc from pt calling to report the ED visit in regards to message above. Pt was seen at [facility] on 12/26 and states they found nothing . Pt states they did an ultrasound and labs and tests came out negative. Was advised will forward to team nurses for f/u Please contact pt at [phone] * Telephone Encounter - Salma Deo RN - 12/26/2022 10:38 AM EST Incoming call from pt regarding message below. Pt informed of lab results and need to go to ED now.Pt states he will go [place] [facility] [place] half hour. Pt informed an expect will be called in and to let us know once discharged for follow up. Pt agrees with plan. Placed call to [facility] [place] and provided pt information for expect today. * Telephone Encounter - Salma Doe RN - 12/26/2022 9:24 AM EST Spoke with PCP regarding critical result. Pt needs to go to ED [facility] to r/o PE as D dimer is high. Attempted to call all numbers in pt chart multiple times with no answer. Consulted with PCP regardingno answer after multiple attempts, was directed to call police for wellness check. Placed call to [place] police department and police office will be dispatched to pt home. Office number provided to provide update on pt once wellness check is complete. Will continue to attempt to contact pt. * Telephone Encounter - Marta Howe LPN - 12/26/2022 8:30 AM EST Critical Line call message retrieved now for patient. D Dimer = [id number] as resulted last night at 1825 PM [facility] attempted to contact correctional counselor/case manager after hours to report result by dialing [facility] main line at 6:27pm byElizabeth Per notation on [facility] record they reached line and then call was disconnected without transfer to critical line correctional counselor/case manager provider. Message left on [facility] Critical line only. Message retrieved this morning at 825am. Also message on [facility] critical line is for same patient from Charisse at [facility] Lab today at 820am. Call returned immediately to [facility] by this Nurse. Charisse Cecilia reporting a follow up call for patient. Please notify PCP now with result and follow with patient. documented in this encounter Plan of Treatment Upcoming Encounters Date Type Department Care Team (Late st Contact Info) Description 07/29/2024 1:45 PM EDT Office Visit [facility] [address] [place] [address] Jenni Santiago MD [address] [place] [address] documented as of this encounter Visit Diagnoses Diagnosis Primary osteoarthritis of both knees- Primary H/O right knee surgery documented in this encounter Additional Health Concerns Assessment Noted Time PHQ-9 Depression Total Score: 9 03/03/19 23 2:43 PM EST documented as of this encounter Care Teams Breakdown Man Relationship Specialty Start Date End Date Jenni Santiago MD [address] [place] [address] PCP - General Internal Medicine 02/05/18 documented as of this encounter
--- OUTSIDE RECORDS SUMMARY | 2024-06-12 14:01 | XMS_ITS | Patient Health Record ---
Author Organization [facility] Address [address] [place] [address] Care Team Providers Care Job Training Specialist Name Role Phone Jenni Santiago M.D. Primary Care Provider Un available Steve Bradley Unavailable [phone] Reason For Referral No Information Plan Of Treatment No Information Insurance Providers Payer Name Payer Address Payer Phone Subscriber Number Group Number Insured Name Patient Relationship to Insured Coverage Start Date Coverage End Date MEDICARE OF [place] [address] [place] [id number] ALISA BENNETT Self - patient is the insured [facility] SU[employer]AL [employer]AN [address] [place] [address] [id number] ALISA BENNETT Self - patient is the insured MEDICAID OF [facility] [address] [place] [address] [id number] ALISA BENNETT Self - patient is the insured
--- OUTSIDE RECORDS SUMMARY | 2024-06-12 14:01 | XMS_ITS | Encounter Summary ---
Author Organization [employer] Address [address] [facility] 7t [place] [address] Care Team Providers Care Television News Reporter Name Role Phone Jenni Santiago MD Primary Care Provider +1- [phone] Reason for Visit * Reason Onset Date Comments Nurse Triage 10/29/2023 Encounter Details Date Type Department Care Team ([facility] st Contact Info) Description 10/29/2023 Telephone [facility] CHC MED & PEDS [address] [place] [address] Jenni Santiago MD [address] [place] [address] Nurse Triage Social History Tobacco Use Types [...] encounter Miscellaneous Notes * Telephone Encounter - Marta Howe LPN - 10/29/2023 11:06 AM EDT Patient reports that he received a letter from PCP and is in need of an appt. Sick visit today will address current issue at [facility] [place]. Please follow with patient in regards to letter. * Telephone Encounter - Marta Howe LPN - 10/29/2023 11:03 AM EDT Triage call returned to patient who reports that he has an area on the back of his neck for about amonth. Over the last week it has gotten bigger and is very painful . Area is larger than a half dollar and is not draining pus at present. No fever. Disposition reviewed and patient in agreement withplan. Disposition reviewed with patient in agreement with plan. No PCP or Team appts. Available at time of call. [facility] hours and availability provided for patient evaluation. Triage nurse informed the patient may have a wait of 1-2 hours because Walk In [facility] may have delays due to patient volume or symptom acuity. Insurance verified as active. Protocol Used: Boil (Skin Abscess) (Adult) Protocol-Based Disposition: Go to Office or Video Visit Now Positive Triage Question: * Severe pain (e.g., excruciating) * All higher-acuity triage questions were negative Care Advice Discussed: * Treatment for a Boil - Moist Heat * Reasons To Call Back - Severe pain or fever occurs - Widespread rash occurs - You become worse * Telephone Encounter - Jenny Tiffani - 10/29/2023 10:41 AM EDT Symptoms: Skin Lump back of the neck Outcome: Schedule an appointment to be seen within 3 days Reason: Caller denied all higher acuity questions The caller accepted this outcome. documented in this encounter Plan of Treatment Upcoming Encounters Date Type Department Care Team (Late st Contact Info) Description 07/29/2024 1:45 PM EDT Office Visit [facility] MED & PEDS [address] [place] [address] Jenni Santiago MD [address] [place] [address] documented as of this encounter Visit Diagnoses Not on filedocumented in this encounter Additional Health Concerns Assessment Noted Time PHQ-9 Depression Total Score: 9 03/03/19 23 2:43 PM EST documented as of this encounter Care Teams Television News Reporter Relationship Specialty Start Date End Date Jenni Santiago MD [address] [place] [address] PCP - General Internal Medicine 02/05/18 documented as of this encounter
--- OUTSIDE RECORDS SUMMARY | 2024-06-12 14:01 | XMS_ITS | Encounter Summary ---
Author Organization [employer] Address 75 [facility] 7t [place] [address] Care Team Providers Care Cnc Technician Name Role Phone Jenni Santiago MD Primary Care Provider +1- [phone] Reason for Visit * Reason Onset Date Comments Nurse Triage 09/18/2022 Encounter Details Date Type Department Care Team ([facility] st Contact Info) Description 09/18/2022 Telephone [facility] CHC MED & PEDS [address] [place] [address] Jenni Santiago MD [address] [place], [place] [phone] Nurse Triage Social History Tobacco Use Types Packs/Day Years Used Date Smoking Tobacco: Former Cigarettes 0.3 25 1 983 - 2008 Smokeless Tobacco: Never Depression Answer Date Recorded Patient Health Questionnaire-9 Score 9 03/03/2022 Depression Answer Date Recorded Patient Health Questionnaire-2 Score 2 03/03/2022 Sex and Gender Information Value Date Recorded Sex Assigned at Male 12/05/2021 10:21 AM EDT Legal Sex Male 10:21 AM EDT Gender Identity Male 12/05/2021 10:21 AM EDT Sexual Orientation Straight 12/05/2021 10 :21 AM EDT documented as of this encounter Miscellaneous Notes * Telephone Encounter - Charisse Araiza RN - 09/18/2022 2:44 PM EDT Triage call Pt reports eating at a [employer] buffet 09/11/22 and having some calamari. Pt reports has hadabdominal pain, cramping , discomfort ever since. Pt reports 09/12, 09/13,09/14 had diarrhea x2 and thenhad constipation after that. Pt reports Last normal BM was a week ago. PT has been eating just bread and drinking adequate liquids. Pt has been passing flatus but, when this happens is concerned thatdiarrhea has occurred as well. Pt has some intermittent nausea , neg for vomiting or fever. Pt has history of diverticulitis but, reports hasn't had any problem with this for 20 years and it doesn'tfeel like that . Pt is advised to come to [facility] today, Pt declined and reports will come to [facility] in the morning . Hours given opens 830am and closes 800pm. Pt agreed with home care . Protocol Used: Abdominal Pain - Male (Adult) Protocol-Based Disposition: See in Office or Video Visit Today Video visit not offered Positive Triage Questions: * Moderate pain (e.g., interferes with normal activities) that comes and goes (cramps) lasts > 24 hours (Exception: pain with Vomiting or Diarrhea - see that Protocol) * Age > 60 years * Patient wants to be seen * All higher-acuity triage questions were negative Care Advice Discussed: * Reassurance and Education - Mild Stomachache * Rest * Drink Clear Fluids * Diet * Pass a Stool * Avoid Aspirin and NSAIDs * Expected Course - Abdominal Pain * Reasons To Call Back - Severe pain lasts over 1 hour - Constant pain lasts over 2 hours - Intermittent pains (e.g., comes and goes, cramps) lasts over 48 hours - You become worse * Telephone Encounter - Jesika Alves - 09/18/2022 1:31 PM EDT Symptoms: Nausea But No Vomiting, Diarrhea, Abdominal Pain - Male Outcome: Schedule an urgent appointment (within 4 hours) or talk to a nurse or provider soon Reason: Getting worse The caller accepted this outcome Please contact pt at [phone] documented in this encounter Plan of Treatment Upcoming Encounters Date Type Department Care Team (Late st Contact Info) Description 07/29/2024 1:45 PM EDT Office Visit [facility] MED & PEDS [address] [place] [address] Jenni Santiago MD [address] [place] [address] documented as of this encounter Visit Diagnoses Not on filedocumented in this encounter Additional Health Concerns Assessment Noted Time PHQ-9 Depression Total Score: 9 03/03/19 23 2:43 PM EST documented as of this encounter Care Teams Cnc Technician Relationship Specialty Start Date End Date Jenni Santiago MD [address] [place] [address] PCP - General Internal Medicine 02/05/18 documented as of this encounter
--- OUTSIDE RECORDS SUMMARY | 2024-06-12 14:01 | XMS_ITS | Encounter Summary ---
Author Organization [employer] Address 75 [facility] 7t [place] [address] Care Team Providers Care Life Consultant Name Role Phone Jenni Santiago MD Primary Care Provider +1- [phone] Encounter Details Date Type Department Care Team (Late Contact Info) Description 05/30/2022 Orders Only [facility] CHC MED & PEDS [address] [place], [place] [phone] Jenni Santiago MD [address] [place] [address] Essential hypertension (Primary Dx); Depressive disorder; Other obesity Social History Tobacco Use Types Packs/Day Years Used Date Smoking Tobacco: Former Cigarettes 0.3 25 1 983 - 2007 Smokeless Tobacco: Never Depression Answer Date Recorded Patient Health Questionnaire-9 Score 9 03/03/2022 Depression Answer Date Recorded Patient Health Questionnaire-2 Score 2 03/03/2022 Sex and Gender Information Value Date Recorded Sex Assigned at Male 12/05/2021 10:21 AM EDT Legal Sex Male 10:21 AM EDT Gender Identity Male 12/05/2021 10:21 AM EDT Sexual Orientation Straight 12/05/2021 10 :21 AM EDT COVID-19 Exposure Response Date Recorded In the last 10 days, have yo u been in contact with someone who was confirmed or suspected to have Coronavirus/COVID-19? No / Unsure 05/30/2022 1:20 PM EDT documented as of this encounter Plan of Treatment Upcoming Encounters Date Type Department Care Team (Late st Contact Info) Description 07/29/2024 1:45 PM EDT Office Visit [facility] CHC MED & PEDS [address] [place] [address] Jenni Santiago MD [address] [place] [address] Scheduled Orders Name Type Priority Associated Diagnoses Orde r Schedule Vitamin D 25 hydroxy Lab Routine Depressive disorder Other obesity Expected: 05/30/2022 (Approximate), Expires: 05/31/2023 documented as of this encounter Procedures Procedure Name Priority Date/Time Associated Diagnosis Comments VITAMIN B12 Routine 06/01/2022 3:34 PM EDT Essential hypertension COMPREHENSIVE METABOLIC PANEL Routine 06/01/2022 3:34 PM EDT Essential hypertension documented in this encounter Results * Vitamin B12 (06/01/2022 3:34 PM EDT) Pathologist [facility] Vitamin B12 267 200 - 1,100 pg/mL [facility]) Comment: Please Note: Although the reference range for vitamin B12 is 200-1100 pg/mL, it has been reported that between 5 and 10% of patients with values between 200 and 400 pg/mL may experience neuropsychiatric and hematologic abnormalities due to occult B12 deficiency; less than 1% of patients with values above 400 pg/mL will have symptoms. Blood Venous blood specimen / Unknown 06/01/2022 3:34 PM EDT 06/01/2022 3:35 PM EDT Narrative [facility] - 06/02/2022 3:28 AM EDT FASTING:NO FASTING: NO us Jenni Santiago MD LAB BLOOD ORDERABLES Final Result [facility] [address], [place] [address] [facility] [address] [place] [address] * (ABNORMAL) Comprehensive Metabolic Panel (06/01/2022 3:34 PM EDT) Glucose 86 65 - 139 mg/dL [facility] Comment: ? Non-fasting reference interval Urea Nitrogen (BUN) 20 7 - 25 mg/dL [facility] Creatinine, Serum 0.67(L) 0.70 - 1.28 mg/dL [facility] eGFR 99 > OR = 60 mL/min/1. 73m2 [facility] Comment: The eGFR is based on the CKD-EPI 2020 equation. To calculate the new eGFR from a previous Creatinine or Cystatin C result, go to https://www.kidney.org/professionals/ kdoqi/gfr%5Fcalculator BUN/Creatinine Ratio 30(H) 6 - 22 (calc) [facility] Sodium 139 135 - 146 mmol/L [facility] Potassium 4.8 3.5 - 5.3 mmol/L [facility] Chloride 99 98 - 110 mmol/L [facility] [place] [facility] Carbon Dioxide 28 20 - 32 mmol/L [facility] Calcium 9.8 8.6 - 10.3 mg/dL [facility] Protein, Total 7.0 6.1 - 8.1 g/dL [facility] Albumin 4.4 3.6 - 5.1 g/dL [facility] Globulin 2.6 1.9 - 3.7 g/dL (calc) [facility] [place] [facility] Albumin/Globuli n Ratio 1.7 1.0 - 2.5 (calc) [facility] Bilirubin, Total 0.9 0.2 - 1.2 mg/dL [facility] Alkaline Phosphatase 87 35 - 144 U/L [facility] AST 25 10 - 35 U/L [facility] ALT 22 9 - 46 U/L [facility] Blood Venous blood specimen / Unknown 06/01/2022 3:34 PM EDT 06/01/2022 3:35 PM EDT Narrative [facility] - 06/02/2022 3:28 AM EDT FASTING:NO FASTING: NO us Jenni Santiago MD LAB BLOOD ORDERABLES Final Result [facility] [address] [facility], [place] [address] [facility] [address] [place] [address] documented in this encounter Visit Diagnoses Diagnosis Essential hypertension- Primary Unspecified essential hypertension Depressive disorder Depressive disorder, not elsewhere classified Other obesity documented in this encounter Additional Health Concerns Assessment Noted Time PHQ-9 Depression Total Score: 9 03/03/19 23 2:43 PM EST documented as of this encounter Care Teams Life Consultant Relationship Specialty Start Date End Date Jenni Santiago MD [address] [place] [address] PCP - General Internal Medicine 02/05/18 documented as of this encounter
--- OUTSIDE RECORDS SUMMARY | 2024-06-12 14:01 | XMS_ITS | Encounter Summary ---
Author Organization [employer] Address [address] [facility] 7t [place] [address] Care Team Providers Care Curriculum Counselor Name Role Phone Jenni Santiago MD Primary Care Provider +1 [phone] Reason for Visit * Reason Comments Med Refill Encounter Details Date Type Department Care Team ([facility] st Contact Info) Description 04/25/2023 Refill [facility] MED & PEDS [address] [place] [address] Jenni Santiago MD [address] [place] [address] Social History Tobacco Use Types Packs/Day Years [...] encounter Miscellaneous Notes * Telephone Encounter - Jenni Santiago MD - 04/26/2023 1:07 PM EDT Discontinued. Treatment completed. documented in this encounter Plan of Treatment Upcoming Encounters Date Type Department Care Team (Late st Contact Info) Description 07/29/2024 1:45 PM EDT Office Visit [facility] MED & PEDS [address] [place] [address] Jenni Santiago MD [address] [place] [address] documented as of this encounter Visit Diagnoses Not on filedocumented in this encounter Additional Health Concerns Assessment Noted Time PHQ-9 Depression Total Score: 9 03/03/19 23 2:43 PM EST documented as of this encounter Care Teams Curriculum Counselor Relationship Specialty Start Date End Date Jenni Santiago MD [address] [place] [address] PCP - General Internal Medicine 02/05/18 documented as of this encounter
--- OUTSIDE RECORDS SUMMARY | 2024-06-12 14:01 | XMS_ITS | Encounter Summary ---
Author Organization [employer] Address [address] [facility] 7t [place] [address] Care Team Providers Care Hand Frame Surgical Elastic Knitter Name Role Phone Jenni Santiago MD Primary Care Provider +1- [phone] Encounter Details Date Type Department Care Team (Late st Contact Info) Description 11/05/2023 Orders Only [facility] CHC MED & PEDS [address] [place], [place] [phone] Jenni Santiago MD [address] [place] [address] Cellulitis and abscess of trunk; Cellulitis of back except buttock Social History Tobacco Use Types Packs/Day Years [...] Upcoming Encounters Date Type Department Care Team ([facility] st Contact Info) Description 07/29/2024 1:45 PM EDT Office Visit [facility] MED & PEDS [address] [place] [address] Jenni Santiago MD [address] [place] [address] documented as of this encounter Visit Diagnoses Diagnosis Cellulitis and abscess of trunk Cellulitis of back except buttock documented in this encounter Additional Health Concerns Assessment Noted Time PHQ-9 Depression Total Score: 9 03/03/19 23 2:43 PM EST documented as of this encounter Care Teams Hand Frame Surgical Elastic Knitter Relationship Specialty Start Date End Date Jenni Santiago MD [address] [place] [address] PCP - General Internal Medicine 02/05/18 documented as of this encounter
--- OUTSIDE RECORDS SUMMARY | 2024-06-12 14:01 | XMS_ITS | Encounter Summary ---
Author Organization [employer] Address [address] [facility] 7t [place] [address] Care Team Providers Care Clerk Specialist Name Role Phone Jenni Santiago MD Primary Care Provider +1- [phone] Reason for Referral * Consultation (Urgent) - Authorized Specialty Diagnoses / Procedures Referred By Ayde velasco Referred To Contact Otolaryngology Diagnoses Parotid mass Jenni Santiago MD [address] [place] [address] Phone: tel: fax: [facility] [address] Phone: tel: fax: Referral ID Status Reason Start Date Expiration Date Visits Requested Visits Authorized [id number] Authorized Specialty Services Required 02/08/2024 02/07/2025 1 1 Encounter Details Date Type Department Care Team ([facility] st Contact Info) Description 02/08/2024 Orders Only [facility] CHC MED & PEDS [address] [place] [address] Jenni Santiago MD [address] [place] [address] Parotid mass (Primary Dx) Social History Tobacco Use Types [...] Upcoming Encounters Date Type Department Care Team ([facility] st Contact Info) Description 07/29/2024 1:45 PM EDT Office Visit [facility] CHC MED & PEDS [address] [place] [address] Jenni Santiago MD [address] [place] [address] Scheduled Referrals Name Type Priority Associated Diagnoses Orde r Schedule Referral to ENT Outpatient Referral Urgent Parotid mass Expected: 02/08/2024 (Approximate), Expires: 02/07/2025 documented as of this encounter Visit Diagnoses Diagnosis Parotid mass- Primary Swelling, mass, or lump in head and neck documented in this encounter Additional Health Concerns Assessment Noted Time PHQ-9 Depression Total Score: 9 03/03/19 23 2:43 PM EST documented as of this encounter Care Teams Clerk Specialist Relationship Specialty Start Date End Date Jenni Santiago MD [address] [place] [address] PCP - General Internal Medicine 02/05/18 documented as of this encounter
--- OUTSIDE RECORDS SUMMARY | 2024-06-12 14:01 | XMS_ITS | Encounter Summary ---
Author Organization [employer] Address 75 [facility] 7t [place] [address] Care Team Providers Care Leaf Size Picker Name Role Phone Jenni Santiago MD Primary Care Provider +1- [phone] Encounter Details Date Type Department Care Team (Late st Contact Info) Description 06/18/2023 Orders Only [facility] CHC MED & PEDS [address] [place], [place] [phone] Jenni Santiago MD [address] [place] [address] History of arthroplasty of right knee (Primary Dx) Social History Tobacco Use Types [...] Upcoming Encounters Date Type Department Care Team ([facility] st Contact Info) Description 07/29/2024 1:45 PM EDT Office Visit [facility] MED & PEDS [address] [place] [address] Jenni Santiago MD [address] [place] [address] documented as of this encounter Visit Diagnoses Diagnosis History of arthroplasty of right knee- Primary documented in this encounter Additional Health Concerns Assessment Noted Time PHQ-9 Depression Total Score: 9 03/03/19 23 2:43 PM EST documented as of this encounter Care Teams Leaf Size Picker Relationship Specialty Start Date End Date Jenni Santiago MD [address] [place] [address] PCP - General Internal Medicine 02/05/18 documented as of this encounter
--- OUTSIDE RECORDS SUMMARY | 2024-06-12 14:01 | XMS_ITS | Encounter Summary ---
Author Organization [employer] Address 75 [facility] 7t [place] [address] Care Team Providers Care Cane Flume Watcher Name Role Phone Jenni Santiago MD Primary Care Provider +1- [phone] Reason for Visit * Reason Onset Date Comments Hospital Follow-up 01/24/2024 Encounter Details Date Type Department Care Team (Late st Contact Info) Description 01/24/2024 Telephone [facility] [address] [place] [address] Jenni Santiago MD [address] [place] [address] Hospital Follow-up Social History Tobacco Use Types Packs/Day [...] encounter Miscellaneous Notes * Telephone Encounter - Sundeep Fields - 01/24/2024 11:31 AM EST Tc from pt requesting a HDF appt. Hospital: [facility] Date of admission: 01/18 Discharge date: 01/22 Diagnosed: Stroke Contact pt at [phone] *Send message to [facility] Clinical Care Coordinators documented in this encounter Plan of Treatment Upcoming Encounters Date Type Department Care Team (Late st Contact Info) Description 07/29/2024 1:45 PM EDT Office Visit [facility] MED & PEDS [address] [place] [address] Jenni Santiago MD [address] [place] [address] documented as of this encounter Visit Diagnoses Not on filedocumented in this encounter Additional Health Concerns Assessment Noted Time PHQ-9 Depression Total Score: 9 03/03/19 23 2:43 PM EST documented as of this encounter Care Teams Cane Flume Watcher Relationship Specialty Start Date End Date Jenni Santiago MD [address] [place] [address] PCP - General Internal Medicine 02/05/18 documented as of this encounter
== END 2024-06-12 12:54 | disposition home or self-care (01) ==
LOC: HO.RESP 12:53
PROVIDERS: PCP Internal Medicine; Visit Provider Internal Medicine
DX: R06.02 Shortness of breath (principal)
CPT/HCPCS: 94010; 94727; 94729

== ENCOUNTER → 2024-06-12 13:00 | Outpatient (BNV) | payer MEDICARE, MEDICAID, SELFPAY | PROVIDERS: PCP Internal Medicine; Visit Provider Hospitalist | DX: R06.09 Other forms of dyspnea (principal) | CPT/HCPCS: 94060; 94729 ==

== ENCOUNTER 2024-10-23 14:20 | Outpatient (REF) | payer MEDICARE, MEDICAID, SELFPAY ==
--- NOTE | ~2024-10-23 | XR_ITS ---
EXAMINATION: XR CHEST CLINICAL INFORMATION: R06.09 - Other forms of dyspnea COMPARISON: None available. TECHNIQUE: 2 views of the chest were obtained. FINDINGS: The cardiac, hilar, and mediastinal contours are normal. The lungs are mildly hyperaerated, however clear bilaterally. There is no pneumothorax or pleural effusion. There is no focal osseous or soft tissue abnormality. There are degenerative changes of the shoulder joints and spine. XR/XR chest 2V IMPRESSION: No active pulmonary disease. Electronically signed by: Nam Wren MD 10/23/2024 04:14 PM EDT
== END 2024-10-23 14:21 | disposition home or self-care (01) ==
LOC: HO.XRAY 14:20
PROVIDERS: PCP Internal Medicine; Referring Provider Internal Medicine; Visit Provider Internal Medicine
DX: R06.09 Other forms of dyspnea (principal); Z78.9 Other specified health status
CPT/HCPCS: 71046; 99202

== ENCOUNTER 2024-10-23 14:20 | Outpatient (AMB) | payer MEDICARE, MEDICAID, SELFPAY ==
--- OUTSIDE RECORDS SUMMARY | 2024-10-21 13:30 | XMS_ITS | Encounter Summary ---
Author Organization [employer] Address [address] [facility] [address] [place] [address] Care Team Providers Care Power System Electrical Engineer Name Role Phone Jenni Santaigo MD Primary Care Provider [phone]- [phone] Reason for Visit * Reason Comments Diabetes Hypertension Encounter Details Date Type Department Care Team ([facility] st Contact Info) Description 10/21/2024 1:30 PM EDT Office Visit [facility] [address] [place] [address] Jenni Santiago MD [address] [place] [address] Type 2 diabetes mellitus without complication, with long-term current use of insulin (CMS/HCC) (Primary Dx); History of smoking 25-50 pack years; Screening for colon cancer; Hepatitis C virus infection without hepatic coma, unspecified chronicity; Cerebrovascular accident (CVA) due to other mechanism (CMS/HCC); Essential hypertension Social History Tobacco Use Types [...] AM EDT documented as of this encounter Last Filed Vital Signs Vital Sign Reading Time Taken Comments Blood Pressure 136/77 10/21/2024 2:03 PM EDT Pulse 88 10/21/2024 2:03 PM EDT Temperature 36.3 C (97.4 F) 10/21/2024 1:31 PM EDT Respiratory Rate 20 10/21/2024 1:31 PM EDT Oxygen Saturation 95% 10/21/2024 1:31 PM EDT Inhaled Oxygen Concentration - - Weight 89.8 kg (198 lb) 10/21/2024 1:31 PM EDT Height 172.7 cm (5' 8 ) 10/21/2024 1:31 PM EDT Body Mass Index 30.11 10/21/2024 1:31 PM EDT documented in this encounter Progress Notes * Jenni Santiago MD - 10/21/2024 1:30 PM EDT SUBJECTIVE Josh Taylor is a 74 y.o. male who presents for Diabetes and Hypertension. Diabetes He presents for his follow-up diabetic visit. He has type 2 diabetes mellitus. His disease course has been stable. Pertinent negatives for hypoglycemia include no confusion, dizziness, headaches, hunger, mood changes, nervousness/anxiousness, pallor, seizures, sleepiness, speech difficulty, sweats or tremors. Associated symptoms include fatigue. Pertinent negatives for diabetes include no blurredvision, no chest pain, no foot paresthesias, no foot ulcerations, no polydipsia, no polyphagia, no polyuria, no visual change, no weakness and no weight loss. Pertinent negatives for hypoglycemia complications include no blackouts, no hospitalization, no nocturnal hypoglycemia, no required assistance and no required glucagon injection. Hypertension This is a chronic problem. The problem is controlled. Associated symptoms include malaise/fatigue. Pertinent negatives include no anxiety, blurred vision, chest pain, headaches, neck pain, orthopnea,palpitations, peripheral edema, PND, shortness of breath or sweats. Patient was last seen in office on April 23, 2024 with the complaint of shortness of breath. A pulmonary function test was ordered and it did not show any restrictive or obstructive defect. Patient denies shortness of breath at rest during the evaluation today. His shortness of breath could be due to deconditioning. Mr. Josh Taylor Was evaluated by Dr. Escobar on June 12, 2024 for a pain of the ball of his left foot when walking. Impression of arthritis. His radiographs from October 2023 were reviewed and showed moderate arthritis of the hand foot and midfoot without acute destruction. Treated with Voltaren gel. Steroid injections were discussed as options for acute flare. Patient will hold off on the injections for now. Had a Doppler done on September 09, 2024 showing mild atherosclerotic plaques of the right carotid system with less than 50% stenosis of the right internal carotid artery Mild atherosclerotic plaque in the left carotid system with less than 50% stenosis in the left internal carotid artery. Problem List[1] Allergies[2] Medications Ordered Prior to Encounter[3] Review of Systems Constitutional: Positive for fatigue and malaise/fatigue. Negative for weight loss. Eyes: Negative for blurred vision. Respiratory: Negative for shortness of breath. Cardiovascular: Negative for chest pain, palpitations, orthopnea and PND. Endocrine: Negative for polydipsia, polyphagia and polyuria. Musculoskeletal: Negative for neck pain. Skin: Negative for pallor. Neurological: Negative for dizziness, tremors, seizures, speech difficulty, weakness and headaches. Psychiatric/Behavioral: Negative for confusion. The patient is not nervous/anxious. OBJECTIVE Vitals: 10/21/24 1331 10/21/24 1403 BP: (!) 173/69 136/77 BP Location: Left arm Left arm Patient Position: Sitting Sitting BP Cuff Size: Adult Adult Pulse: 70 88 Resp: 20 Temp: 97.4 ??F (36.3 ??C) TempSrc: Oral SpO2: 95% Weight: 198 lb (89.8 kg) Height: 5' 8 (1.727 m) Physical Exam Constitutional: General: He is not in acute distress. Appearance: Normal appearance. He is not ill-appearing, toxic-appearing or diaphoretic. Cardiovascular: Rate and Rhythm: Normal rate. Heart sounds: No murmur heard. Pulmonary: Effort: Pulmonary effort is normal. No respiratory distress. Breath sounds: No stridor. No wheezing or rhonchi. Neurological: Mental Status: He is alert. Assessment/Plan Assessment/Plan Diagnoses and all orders for this visit: Type 2 diabetes mellitus without complication, with long-term current use of insulin ([facility]) Comments: Follow up w/ endocrinology Orders: - POCT Glucose - POCT Hgb A1c - Comprehensive Metabolic Panel; Future - Lipid Panel, Standard; Future - Albumin, Random Urine W/Creatinine; Future - Magnesium; Future - Vitamin D, 25-Hydroxy, Total, Immunoassay; Future - Vitamin B12/Folate, Serum Panel; Future History of smoking 25-50 pack years Comments: He does not qualify for lung screening because he has quit smoking more than 20 years ago Screening for colon cancer - Cologuard?? colon cancer screening; Future Hepatitis C virus infection without hepatic coma, unspecified chronicity Comments: Treated No acute intervention today. Cerebrovascular accident (CVA) due to other mechanism (CMS/HCC) Comments: No acute findings No change in medication for now. Essential hypertension Comments: Blood pressure is at goal To continue with the same medication for now. [1] Patient Active Problem List Diagnosis Benign prostatic hyperplasia without urinary obstruction Cerebrovascular accident (CMS/HCC) Chronic gingivitis Depressive disorder Diabetes mellitus type 2, uncomplicated (CMS/HCC) Disorder of nasal sinus Essential hypertension Gastroesophageal reflux disease Heart disease Viral hepatitis C Hyperlipidemia Cellulitis and abscess of trunk Cyst of his upper back [2] Allergies Allergen Reactions Pollen Extract [3] Current Outpatient Medications on File Prior to Visit Medication Sig Dispense Refill Accu-Chek FastClix Lancets misc USE 5-6 TIMES daily Accu-Chek Guide test strip TEST BLOOD SUGAR 5-6 TIMES DAILY albuterol 108 (90 Base) MCG/ACT inhaler Inhale 2 puffs every 4 (four) hours if needed for wheezing.18 g 3 amLODIPine (Norvasc) 5 MG tablet TAKE ONE TABLET EVERY MORNING 90 tablet 3 ammonium lactate (AmLactin) 12 % lotion Apply to affected area daily after shower. 500 g 3 amoxicillin (Amoxil) 500 MG capsule Take 4 tabs (2 grams) 1 hour prior to dental procedure 12 capsule 0 amoxicillin (Amoxil) 500 MG capsule Take 4 tabs (2 grams) 1 hour prior to dental procedure 16 capsule 3 amoxicillin (Amoxil) 500 MG capsule Take 4 tabs (2 grams) 1 hour prior to dental procedure 12 capsule 0 aspirin 81 MG EC tablet Take 81 mg by mouth Once per day. aspirin 81 MG EC tablet Take 1 tablet (81 mg) by mouth Once per day. 30 tablet 11 atorvastatin (Lipitor) 40 MG tablet Take 1 tablet by mouth at bedtime. cetirizine (ZyrTEC) 10 MG tablet TAKE ONE TABLET EVERY MORNING 90 tablet 1 cholecalciferol VITAMIN D (Vitamin D-3) 50 MCG (2000 UT) capsule TAKE ONE CAPSULE EVERY MORNING 90 capsule 3 clopidogrel (Plavix) 75 MG tablet TAKE ONE TABLET EVERY MORNING 30 tablet 1 clopidogrel (Plavix) 75 MG tablet TAKE ONE TABLET EVERY MORNING 30 tablet 1 diazePAM (Valium) 5 MG tablet Take 1 tablet by mouth if needed at bedtime. escitalopram (Lexapro) 5 MG tablet TAKE ONE TABLET EVERY MORNING 30 tablet 1 ezetimibe (Zetia) 10 MG tablet Take 1 tablet by mouth at bedtime. famotidine (Pepcid) 20 MG tablet TAKE ONE TABLET IN THE MORNING AND EVENING 60 tablet 11 finasteride (Proscar) 5 MG tablet Take 1 tablet by mouth at bedtime. gabapentin (Neurontin) 600 MG tablet Take 1 tablet by mouth if needed in the morning and at bedtime. glucose 4 g chewable tablet Chew 4 tablets (16 g) if needed for low blood sugar. 50 tablet 12 hyoscyamine ER (Levbid) 0.375 MG 12 hr tablet Take 1 tablet (0.375 mg) by mouth every 12 (twelve) hours if needed for cramping. Do not crush or chew. 60 tablet 12 Insulin Lispro 100 UNIT/ML solution INJECT 100 UNITS via pump daily losartan-hydroCHLOROthiazide (Hyzaar) 100-12.5 MG tablet TAKE ONE TABLET EVERY MORNING 30 tablet 11 Misc. Devices (Pulse Oximeter For Finger) misc To use every 4 hours. Call the office if O2 Sat <90% 1 each 0 omeprazole (PriLOSEC) [address] capsule TAKE ONE CAPSULE EVERY MORNING 30 capsule 5 venlafaxine XR (Effexor XR) 150 MG 24 hr capsule Take 1 capsule by mouth in the morning. No current facility-administered medications on file prior to visit. documented in this encounter Plan of Treatment Upcoming Encounters Date Type Department Care Team (Late st Contact Info) Description 03/02/2025 3:00 PM EST Office Visit [facility] [address] [place] [address] Wilfredo Santiago Scheduled Orders Name Type Priority Associated Diagnoses Orde r Schedule Comprehensive Metabolic Panel Lab Routine Type 2 diabetes mellitus without complication, with long-term current use of insulin ([facility]/HCC) Expected: 10/21/2024 (Approximate), Expires: 10/21/2025 Lipid Panel, Standard Lab Routine Type 2 diabetes mellitus without complication, with long-term current use of insulin (CMS/HCC) Expected: 10/21/2024 (Approximate), Expires: 10/21/2025 Albumin, Random Urine W/Creatinine Lab Routine Type 2 diabetes mellitus without complication, with long-term current use of insulin (CMS/HCC) Expected: 10/21/2024 (Approximate), Expires: 10/21/2025 Cologuard colon cancer screening Lab Routine Screening for colon cancer Expected: 10/21/2024 (Approximate), Expires: 10/21/2025 Magnesium Lab Routine Type 2 diabetes mellitus without complication, with long-term current use of insulin (CMS/HCC) Expected: 10/21/2024, Expires: 10/21/2025 Vitamin D, 25-Hydroxy, Total, Immunoassay Lab Routine Type 2 diabetes mellitus without complication, with long-term current use of insulin ([facility]) Expected: 10/21/2024 (Approximate), Expires: 10/21/2025 Vitamin B12/Folate, Serum Panel Lab Routine Type 2 diabetes mellitus without complication, with long-term current use of insulin ([facility]) Expected: 10/21/2024, Expires: 10/21/2025 documented as of this encounter Procedures Procedure Name Priority Date/Time Associated Diagnosis Comments POCT GLUCOSE Routine 10/21/2024 2:00 PM EDT Type 2 diabetes mellitus without complication, with long-term current use of insulin ([facility]) POCT GLYCATED HEMOGLOBIN, TOTAL Routine 10/21/2024 1:59 PM EDT Type 2 diabetes mellitus without complication, with long-term current use of insulin ([facility]) documented in this encounter Results * POCT Glucose (10/21/2024 2:00 PM EDT) Glucose Blood, POC 150 60 - 200 mg/dL QC Media Lot # [id number] Lot# Expiration Date Comment:random Blood Capillary blood specimen / Unknown 10/21/2024 2:00 PM EDT Jenni Santiago MD POINT OF CARE TEST ENTER/ED IT ORDERABLES Final Result * (ABNORMAL) POCT Hgb A1c (10/21/2024 1:59 PM EDT) Hemoglobin A1C 7.7(A) 4.0 - 5.7 % QC Media Lot # [id number] Lot# Expiration Date Blood 10/21/2024 1:59 PM EDT Jenni Santiago MD POINT OF CARE TEST ENTER/ED IT ORDERABLES Final Result documented in this encounter Visit Diagnoses Diagnosis Type 2 diabetes mellitus without complication, with long-term current use of insulin (CMS/HCC)- Primary History of smoking 25-50 pack years Screening for colon cancer Special screening for malignant neoplasms, colon Hepatitis C virus infection without hepatic coma, unspecified chronicity Cerebrovascular accident (CVA) due to other mechanism (CMS/HCC) Essential hypertension Unspecified essential hypertension documented in this encounter Additional Health Concerns Assessment Noted Time PHQ-9 Depression Total Score: 15 03/10/ 025 10:01 AM EST documented as of this encounter Care Teams Power System Electrical Engineer Relationship Specialty Start Date End Date Jenni Santiago MD [address] [place] [id number] PCP - General Internal Medicine 02/05/18 documented as of this encounter
--- NOTE | 2024-10-23 14:24 | A.OFFVIS_ITS ---
Vital Signs 10/23/24 14:25 Height 5 ft 9.5 in Weight 199 lb 8.293 oz BMI 29.0 BP 120/60 Blood Pressure Location Lt brachial Position Sitting Pulse 96 Pulse Source Pulse Oximeter Pulse Oximetry (%) 96 Oxygen Delivery Method Room Air Intake Visit Reasons: Shortness of breath Intake Note: pt is here as a new patient for shortness of breath, history of stroke x2. Hat Finisher Required: No Allergies No Known Allergies Allergy (Verified 10/23/24 15:15) Medication List - Last Reconciled 10/23/24 by Cee Adams MD albuterol sulfate 90 mcg/actuation 2 puffs PO Q4H PRN amlodipine 5 mg PO DAILY atorvastatin 40 mg PO DAILY cetirizine (Zyrtec) 10 mg PO DAILY PRN cholecalciferol (vitamin D3) 50 mcg PO QAM clopidogrel 75 mg PO DAILY diazepam 5 mg PO BEDTIME PRN escitalopram oxalate 5 mg PO DAILY ezetimibe 10 mg PO DAILY finasteride 5 mg PO BEDTIME flash glucose sensor ([employer] Wireless Miladys 2 Sensor kit) As directed gabapentin 600 mg PO TID PRN hydrochlorothiazide 12.5 mg PO QAM insulin lispro (Humalog U-100 Insulin) 40 units subcut TID ipratropium bromide intranasal losartan-hydrochlorothiazide 100-12.5 mg 1 tab PO DAILY mupirocin 2% 1 appl topical TID omeprazole 20 mg PO DAILY venlafaxine ER 150 mg PO DAILY venlafaxine ER 37.5 mg PO DAILY Do you need a note to return to daycare/school/sports/work: No HPI HPI Shortness of breath: Details: THIS 74 YEARS OLD GENTLEMAN IS HERE TO BE EVALUATED FOR DYSPNEA ON EXERTION. HE CLAIMS THAT HE GETS SHORT OF BREATH AFTER WALKING FOR ABOUT 1 BLOCK ON LEVEL GROUND. THIS IS GOING ON FOR THE LAST 1 YEAR OR SO. HE DENIES ANY BOUTS OF COUGH OR WHEEZING WHEN HE GETS SHORT OF BREATH. HE HAS BEEN PRESCRIBED ALBUTEROL INHALER TO BE USE P.R.N. BUT HE HARDLY NEEDS TO USE IT. PATIENT DOES HAVE MILD NASAL CONGESTION OFF AND ON AND USES IPRATROPIUM NASAL SPRAY P.R.N.. PATIENT IS SOMEWHAT FORGETFUL AND DOES NOT REMEMBER THE EXACT DATES . OF VARIOUS THINGS HAPPENING HE TOLD ME THAT HE DEVELOPED DYSARTHRIA ABOUT 6 MONTHS AGO AND HAS HAD SPEECH THERAPY WITH ONLY PARTIAL IMPROVEMENT. HOWEVER WHEN I REVIEW IS RECORDS SEEMS THAT HE HAD A STROKE BACK IN 2009 AND ALSO MORE RECENTLY. THAT MAY HAVE RESULTED IN DYSARTHRIA, HE IS NOT SEEING ANY NEUROLOGIST , HE HAS PAST HISTORY OF SMOKING AND TELLS ME THAT HE QUIT SMOKING IN 2002. HE DOES HAVE PAST HISTORY OF HEAVY DRINKING, AND IS BEING FOLLOWED BY THE GASTROENTEROLOGY SERVICE FOR HEPATIC FIBROSIS. HE DOES HAVE THE MILD DEPRESSION BEING TREATED WITH ESCITALOPRAM 5 MG. A DAY AND ALSO EFFEXOR 37.5 MG A DAY. THIS GENTLEMAN HAD PULMONARY FUNCTION TEST IN JUNE 2024 HERE AT OUR PULMONARY OFFICE. BUT HE DID NOT REMEMBER ABOUT HAVING. THAT TEST I THINK HIS SHORTNESS OF BREATH ON WALKING IS VERY NONSPECIFIC [facility] Medical History Dyspnea on exertion HTN (hypertension) Surgical History Hx of inguinal hernia surgery History of esophagogastroduodenoscopy (EGD) Hx of colonoscopy Family History Mother CHD (congenital heart disease) Social History Household Members Other:: Lives with GF Alcohol intake: former Patient Tobacco Use Status: Former Tobacco user Substance Use Type: Marijuana Current occupational status: retired Review of Systems Const All systems reviewed & are unremarkable except as noted in HPI and below Eyes Reports no additional complaints ENT Reports no additional complaints Card Denies chest pain, Denies irregular heart rhythm and Denies leg edema Resp Reports as per HPI GI Reports no additional complaints Reports no additional complaints Musc Reports no additional complaints Skin/Breast Reports system reviewed and no additional complaints, except as documented Neuro Reports Abnormal speech present (MILD DYSARTHRIA) and Reports memory loss Psych Reports anxiety, Reports depression and Reports memory loss Endo Reports no additional complaints Taz/Lymph Reports no additional complaints Aller/Immun Reports no additional complaints Physical Exam Vital Signs: Last Vital Signs Pulse 96 10/23/24 14:25 BP 120/60 10/23/24 14:25 Pulse Ox 96 10/23/24 14:25 Oxygen Delivery Method Room Air 10/23/24 14:25 BMI result Body Mass Index 29.0 Const General: comfortable, no acute distress, alert and awake Orientation/consciousness: patient oriented x3 HEENT Head: Yes normal to inspection General nose exam: No nasal polyps present and No nasal discharge present Face and sinus: Yes sinuses nontender Mouth: oropharynx normal Throat: Yes posterior oropharynx normal Eyes General: appearance normal, both eyes and all related structures Neck Neck: Yes normal visual inspection, Yes no lymphadenopathy, Yes trachea midline and Yes no JVD Thyroid: Thyroid normal Chest Chest palpation & inspection: normal inspection of the chest, normal palpation of entire chest wall and no tenderness Resp Other: CHEST IS SYMMETRICAL. PERCUSSION. NOTE RESONANT ON BOTH SIDES NO WHEEZES OR RHONCHI ARE HEARD. Cardio Palpation: normal PMI Rate: regular rate Rhythm: regular rhythm Heart sounds: no gallops and no murmurs GI Palpation (GI): Soft to palpation, nontender, No hepatosplenomegaly present and no masses Auscultation: normal bowel sounds Back/Spine/Pelvis Thoracic/Lumbar Spine: thoracic and lumbar spine normal to inspection Skin General skin exam: no rashes or lesions noted Neuro General: patient oriented x3 and no focal motor deficits Cranial nerves: Yes CN's II-XII intact bilaterally Speech: Abnormal speech present (MILD DYSARTHRIA) Extrem General: Yes normal to inspection, Yes no clubbing, cyanosis or edema and Yes no calf tenderness Psych Appearance: grossly normal and well kempt Speech and movement: Normal speech and movement present Results Reviewed Results Reviewed: CHEST XRAY OREDERED PFT 06/09/2024 DIFFUSION CAPACITY SLIGHTLY DECREASED. PATIENT COULD NOT PERFORM GOOD MANEUVERS FOR LUNG VOLUMES. FLOW VOLUMES WERE ALL NORMAL.. [place] [facility] [place] Assessment & Plan Assessment & Plan (1) Dyspnea on exertion: Comment: IS HISTORY OF DYSPNEA ON EXERTION IS VERY NONSPECIFIC, IT IS MILD. PULMONARY FUNCTION TEST , DID NOT SHOW ANY OBSTRUCTIVE AIRWAY DISORDER Code(s): R06.09 - Other forms of dyspnea Category: Medical Plan: PATIENT REASSURED AND, ADVISED TO DO DEEP BREATHING EXERCISES . WILL RECHECK HIM IN 2 MONTHS (2) Poor historian: Comment: SEE pcp as scheduled next week Any cardiac sx- ED- he agree memory loss Code(s): Z78.9 - Other specified health status Category: Medical Plan: WILL NEED TO BE WATCHED Orders: Orders XR chest 2V Today R06.09 - Other forms of dyspnea Coding Level of Care Code New Pt Level 3 (51245) Diagnoses Dyspnea on exertion R06.09 Poor historian Z78.9
[2024-10-23 14:25] VITALS: BP 120/60; PULSE 96; O2SAT 96; BMI 29.0
--- OUTSIDE RECORDS SUMMARY | 2024-10-23 16:09 | XMS_ITS | Encounter Summary ---
Author Organization [employer] Address [address] [facility] 7[address] [place] [address] Care Team Providers Care Bottle Labeler Name Role Phone Jenni Santiago MD Primary Care Provider [phone]- [phone] Reason for Referral * Consultation (Routine) - Authorized Specialty Diagnoses / Procedures Referred By Ayde velasco Referred To Contact Pulmonary Disease Diagnoses Chest congestion Jenni Santiago MD [address] [place] [phone] Phone: tel: fax: Daren Adams [address] [place] [address] Phone: tel: fax: Referral ID Status Reason Start Date Expiration Date Visits Requested Visits Authorized [id number] Authorized Specialty Services Required 06/17/2024 06/17/2025 1 1 Encounter Details Date Type Department Care Team ([facility] st Contact Info) Description 06/17/2024 Orders Only [facility] P[facility] [address] [place], [place] [phone] Jenni Santiago MD [address] [place] [phone] Chest congestion (Primary Dx) Social History Tobacco Use Types [...] Description 03/02/2025 3:00 PM EST Office Visit [facility] [address] [place] [address] Wilfredo Santiago Scheduled Referrals Name Type Priority Associated Diagnoses Order Schedule Referral to Pulmonology Outpatient Referral Routine Chest congestion Expected: 06/17/2024 (Approximate), Expires: 06/17/2025 documented as of this encounter Visit Diagnoses Diagnosis Chest congestion- Primary Other symptoms involving respiratory system and chest documented in this encounter Additional Health Concerns Assessment Noted Time PHQ-9 Depression Total Score: 15 025 10:01 AM EST documented as of this encounter Care Teams Bottle Labeler Relationship Specialty Start Date End Date Jenni Santiago MD [address] [place] [address] PCP - General Internal Medicine 02/05/18 documented as of this encounter
--- OUTSIDE RECORDS SUMMARY | 2024-10-23 16:09 | XMS_ITS | Encounter Summary ---
Author Organization [employer] Address [address] [facility] [address] [place] [address] Care Team Providers Care Inspector Penetrant Name Role Phone Jenni Santiago MD Primary Care Provider [phone]- [phone] Encounter Details Date Type Department Care Team (Late st Contact Info) Description 04/16/2024 Orders Only [facility] [address] [place] [address] Jenni Santiago MD [address] [place] [address] SOB (shortness of breath) Social History Tobacco [...] Description 03/02/2025 3:00 PM EST Office Visit [facility] [address] [place] [address] Wilfredo Santiago documented as of this encounter Visit Diagnoses Diagnosis SOB (shortness of breath) Shortness of breath documented in this encounter Additional Health Concerns Assessment Noted Time PHQ-9 Depression Total Score: 15 025 10:01 AM EST documented as of this encounter Care Teams Inspector Penetrant Relationship Specialty Start Date End Date Jenni Santiago MD [address] [place] [address] PCP - General Internal Medicine 02/05/18 documented as of this encounter
--- OUTSIDE RECORDS SUMMARY | 2024-10-23 16:09 | XMS_ITS | Encounter Summary ---
Author Organization [employer] Address [address] [facility] [address] [place] [address] Care Team Providers Care Residential Real Estate Appraiser Name Role Phone Jenni Santiago MD Primary Care Provider [phone] Reason for Visit * Reason Onset Date Comments Hospital Follow-up 01/24/2024 Encounter Details Date Type Department Care Team (Late st Contact Info) Description 01/24/2024 Telephone [facility] [address] [place] [address] Jenni Santaigo MD [address] [place] [address] Hospital Follow-up Social History Tobacco Use Types [...] from pt requesting a HDF appt. Hospital: [facility] Date of admission: 01/18 Discharge date: 01/22 Diagnosed: Stroke Contact pt at [phone] *Send message to [place] Clinical Care Coordinators documented in this encounter Plan of Treatment Upcoming Encounters Date Type Department Care Team (Late st Contact Info) Description 03/02/2025 3:00 PM EST Office Visit [facility] ADULT D[facility]AL [address] [place] [address] Wilfredo Santiago documented as of this encounter Visit Diagnoses Not on filedocumented in this encounter Additional Health Concerns Assessment Noted Time PHQ-9 Depression Total Score: 9 03/03/19 23 2:43 PM EST documented as of this encounter Care Teams Residential Real Estate Appraiser Relationship Specialty Start Date End Date Jenni Santiago MD [address] [place] [address] PCP - General Internal Medicine 02/05/18 documented as of this encounter
--- OUTSIDE RECORDS SUMMARY | 2024-10-23 16:09 | XMS_ITS | Encounter Summary ---
Author Organization [employer] Address [address] [facility] [address] [place] [address] Care Team Providers Care Adoption Counselor Name Role Phone Jenni Santiago MD Primary Care Provider [phone]- [phone] Reason for Referral * Consultation (Routine) - Closed Specialty Diagnoses / Procedures Referred By Ayde fry Referred To Contact Speech Pathology Diagnoses Cerebrovascular accident (CVA) due to other mechanism (CMS/HCC) Jenni Santiago MD [address] [place] [address] Phone: tel: fax: [facility] [address] [place] [address] [place] [place] Phone: tel: fax: Referral ID Status Reason Start Date Expiration Date V isits Requested Visits Authorized [id number] Closed Specialty Services Required 02/01/2024 01/31/2025 1 1 Encounter Details Date Type Department Care Team (Late st Contact Info) Description 02/01/2024 Orders Only [facility] PEDS [address] [place], [place] [phone] Jenni Santiago MD [address] [place] [address] Cerebrovascular accident (CVA) due to other mechanism [...] Description 03/02/2025 3:00 PM EST Office Visit [facility] ADULT DENTAL [address] [place] [address] Wilfredo Santiago documented as of this encounter Procedures Procedure Name Priority Date/Time Associated Diagnosis Comments AMB REFERRAL TO SPEECH THERAPY Routine 03/27/2024 Cerebrovascular accident (CVA) due to other mechanism (CMS/HCC) documented in this encounter Results * Referral to Speech Therapy (03/27/2024) Jenni Santiago MD OUTPATIENT REFERRAL ORDERAB LES Final Result documented in this encounter Visit Diagnoses Diagnosis Cerebrovascular accident (CVA) due to other mechanism (CMS/HCC)- Primary documented in this encounter Additional Health Concerns Assessment Noted Time PHQ-9 Depression Total Score: 9 03/03/19 23 2:43 PM EST documented as of this encounter Care Teams Adoption Counselor Relationship Specialty Start Date End Date Jenni Santiago MD [address] [place] [address] PCP - General Internal Medicine 02/05/18 documented as of this encounter
--- OUTSIDE RECORDS SUMMARY | 2024-10-23 16:09 | XMS_ITS | Encounter Summary ---
Author Organization [employer] Address [address] [facility] [address] [place] [address] Care Team Providers Care Tobacco Checkout Clerk Name Role Phone Jenni Santiago MD Primary Care Provider [phone]- [phone] Reason for Referral * Consultation (Urgent) - Authorized Specialty Diagnoses / Procedures Referred By Ayde fry Referred To Contact Otolaryngology Diagnoses Parotid mass Jenni Santiago MD [address] [place] [address] Phone: tel: fax: [facility] [address] Phone: tel: fax: Referral ID Status Reason Start Date Expiration Date Visits Requested Visits Authorized [id number] Authorized Specialty Services Required 02/08/2024 02/07/2025 1 1 Encounter Details Date Type Department Care Team ([facility] st Contact Info) Description 02/08/2024 Orders Only [facility] & PEDS [address] [place] [address] Jenni Santiago MD [address] [place] [address] Parotid mass (Primary Dx) Social History Tobacco [...] Description 03/02/2025 3:00 PM EST Office Visit [facility] ADULT DENTAL [address] [place] [address] Wilfredo Santiago Scheduled Referrals Name Type Priority [...] documented as of this encounter Care Teams Tobacco Checkout Clerk Relationship Specialty Start Date End Date Jenni Santiago MD [address] [place] [address] PCP - General Internal Medicine 02/05/18 documented as of this encounter
--- OUTSIDE RECORDS SUMMARY | 2024-10-23 16:09 | XMS_ITS | Continuity of Care Document ---
Author Organization [facility] [address] [place] [address] Phone [phone] Care Team Providers Care Supervisor [employer]ing [employer] Name Role Phone Jenni Santiago M.D. Care Team Information Re ceiver [phone] Problems Active Problems Provider Date CVA - [...] Social History Type Date Description Comments Sex Male Sex Unknown Tobacco Use Start: Unknown Never Smoked Cigarettes Smoking Status Reviewed: 07/22/24 Never Smoked Cigaret kathe ETOH Use Rarely consumes alcohol Allergies and adverse reactions Description No Known Drug Allergies Medications Active Medications SIG Qnty Indications Ordering Provider Date Ugxgbl09bb Tablets 1 by mouth every day 90tabs Alexander Watters M.D. 08/31/2023 Atorvastatin Sbueujo68ik Tablets Take One Tablet Every Night AT Bedtime 90tabs Alexander Watters M.D. 02/16/2023 Olgzusgww85sy Tablets Take One Tablet Every Night AT Bedtime 90tabs Alexander Watters M.D. 10/30/2022 Qmrvsicncuuytatprdu53x g Tablets Take One Capsule Every Morning Alexander Watters M.D. 05/16/2022 Iitzutczjr308sj Tablets take 1 tablet by mouth daily at bedtime 28tabs Alexander Watters M.D. 11/04/2021 Zibizwg791Nskn/ML Solution 100 units daily via pump 90ml E11.9 Alexander Watters M.D. 09/19/2021 Woaaymrh2kz Tablets 1 by mouth at night 90tabs Unknown Venlafaxine HCL ER37.5mg Caps ER 24HR Take One Capsule Every Morning Unknown Venlafaxine HCL MQ955ft Caps ER 24HR Take One Capsule Every Morning Unknown Micdwctqgr41vn Capsules DR Take One Capsule By Mouth Every Morning Jenni Santiago M.D. SM Vitamin U231kpt Capsules Take One Capsule By Mouth Every Morning Jenni Santiago M.D. Losartan Potassium/Hydrochlorot nantmsb774-90.5mg Tablets 1 by mouth every day Jenni Santiago M.D. Vital Signs Date Vital Result Comment 07/22/2024 2:17pm BP Systolic 124 mmHg BP Diastolic 80 mmHg Heart Rate 72 /min Height 69 inches 5'9 Weight 197.12 lb BMI (Body Mass Index) 29.1 kg/m2 Results Test Acquired Date Facility Test Result H/L Range Note Glucose Fingerstick 07/22/2024 Inhouse Glucose Fingerstick 209 Hemoglobin A1c 07/22/2024 Inhouse Hemoglobin A1c 7.3% Glucose Fingerstick 03/11/2024 Inhouse Glucose Fingerstick 211 Hemoglobin A1c 03/11/2024 Inhouse Hemoglobin A1c 7.6% Hemoglobin A1c 12/04/2023 Inhouse Hemoglobin A1c 7.9% Glucose Fingerstick 12/04/2023 Inhouse Glucose Fingerstick 133 Hemoglobin A1c 12/04/2023 [facility] Hemoglobin A1c 8.5 % High 4.8-5.6 1 Lipid Panel 12/04/2023 [facility] Cholesterol, Total 134 mg/dL 100-199 Triglycerides 109 mg/dL 0-149 HDL Cholesterol 48 mg/dL >39 VLDL Cholesterol David 20 mg/dL 5-40 LDL Chol Calc ([facility]) 66 mg/dL 0-99 LDL Calc Comment: TNP Albumin/Creatin ine Ratio, Random Urine 12/04/2023 [facility] Creatinine, Urine 159.9 mg/dL Not Estab. Albumin, Urine 18.1 ug/mL Not Estab. Alb/Creat Ratio 11 mg/gcreat 0-29 2 Urinalysis, Complete 12/04/2023 [facility] Specific [place] 1.020 1.005-1.0 30 pH 5.5 5.0-7.5 Urine-Color Yellow Yellow Appearance Clear Clear WBC Esterase Negative Negative Protein Negative Negative/ Trace Glucose Negative Negative Ketones Negative Negative Occult Blood Negative Negative Bilirubin Negative Negative Urobilinogen,Se mi-Qn 1.0 mg/dL 0.2-1.0 Nitrite, Urine Negative Negative Microscopic Examination See Comment: 3 Microscopic Examination See below: 4 WBC None seen /hpf 0 - 5 RBC None seen /hpf 0 - 2 Epithelial Cells (non renal) None seen /hpf 0 - 10 Epithelial Cells (renal) TNP Casts None seen /lpf None seen Cast Type TNP Crystals TNP Crystal Type TNP Mucus Threads TNP Bacteria None seen None seen/Few Yeast TNP Trichomonas TNP Comment TNP TSH 12/04/2023 [facility] TSH 1.950 uIU/mL 0.450-4.5 00 Comp. Metabolic Panel (14) 12/04/2023 [facility] Bilirubin, [...] IU/L 0-40 Alt (SGPT) 21 IU/L 0-44 CBC With Differential/Pl atelet 12/04/2023 [facility] WBC [...] 1.4-7.0 Lymphs (Absolute) 1.1 x10E3/uL 0.7-3.1 Monocytes(Absol gay) 0.8 x10E3/uL 0.1-0.9 Eos (Absolute) 0.3 x10E3/uL [...] 05/28/2023 [facility] Glucose 209 mg/dL High 70-99 Glucose Fingerstick 02/16/2023 Inhouse Glucose Fingerstick 121 Hemoglobin A1c 02/16/2023 Inhouse Hemoglobin A1c 7.3% Hemoglobin A1c 11/15/2022 Inhouse Hemoglobin A1c 7.6% Glucose Fingerstick 11/15/2022 Inhouse Glucose Fingerstick 221 Hemoglobin A1c 08/15/2022 Inhouse Hemoglobin A1c 7.7% Glucose Fingerstick 08/15/2022 Inhouse Glucose Fingerstick 163 Free And Total PSA 08/14/2022 [facility] Total PSA 0.1 NG/ML (0-4) 7 Free PSA <0.1 NG/ML Percent Free PSA THEREFORE, THE P <SEE NOTE> % (25-100) 8 Urinary Microalbumin 08/14/2022 [facility] [id number] Duplicate Order TSH With Reflex To FT4 08/14/2022 [facility] TSH With Reflex To FT4 1.45 uIU/mL (0.4-4.2) Complete Abc With Diff 08/14/2022 [facility] WBC 7.6 K/MM3 (4.0-11.0 ) [...] K/MM3 (1.3-7.0) Lymph # 1.6 K/MM3 (0.8-3.1) Castro# 0.7 K/MM3 (0.4-1.3) Eo # 0.1 K/MM3 (0.0-0.4) Baso # 0.1 K/MM3 (0.0-0.1) Abs. Imm Gran 0.0 K/MM3 Neut 67.4 % (44-76) Lymph 20.6 % (15-43) Monocyte 9.2 % (4.5-10.5 ) Eo 1.7 % (0-6) Baso 0.7 % (0-2) Imm Gran 0.4 % Urinalysis Complete 08/14/2022 [facility] [id number] Duplicate Order Comprehensive Metabolic Panl 08/14/2022 [facility] Glucose 130 mg/dL High (70-99) [...] 99 ML/MIN/1.73 M2 9 Urinalysis Complete 08/14/2022 [facility] Appear/Color YELLOW 10 SP. [place] 1.022 (1.002-1. 030) Urine PH 6.0 (5.0-8.0) Urine Albumin TRACE Abnormal (Neg) Urine Glucose NEGATIVE (Neg) Urine Ketones NEGATIVE (Neg) Urine Bilirubin NEGATIVE (Neg) Urine Hemoglobin NEGATIVE (Neg) Urine Nitrite NEGATIVE (Neg) Urine Leukocyte NEGATIVE (Neg) Urobilinogen NORMAL mg/dL (Norm) Urine WBCs <1 /HPF (0-5) Urine RBCs 1 /HPF (0-3) Bacteria SLIGHT HPF Abnormal (Neg) Mucus SLIGHT /LPF Urinary Microalbumin 08/14/2022 [facility] Micro-Albumin 17.0 mg/L (<20) 11 Malb/Creat Ratio 13.1 MG/GM (0-20) Urine Creat For Micro Albumin 126.1 mg/dL Hemoglobin A1c 05/16/2022 [facility] Hemoglobin A1c 7.2% Glucose Fingerstick 05/16/2022 Inhouse Glucose Fingerstick 164 Hemoglobin A1c 02/15/2022 [facility]house Hemoglobin A1c 7.0% Glucose Fingerstick 02/15/2022 Inhouse Glucose Fingerstick 143 Lipid Panel 11/22/2021 [facility] Cholesterol, Total 174 mg/dL (<200) Triglyceride 162 mg/dL High (<150) HDL Chol 43 mg/dL (>39) LDL Cholesterol, Calculated 99 mg/dL (0-130) Non HDL Cholesterol (Calc) 131 mg/dL (<160) Hemoglobin A1c 11/04/2021 Inhouse Hemoglobin A1c 7.8% Glucose Fingerstick 11/04/2021 Inhouse Glucose Fingerstick 150 1 Prediabetes: 5.7 - 6 .4 Diabetes: >6.4 Glycemic control for adults with diabetes: <7.0 2 Normal: 0 - 29 Moderately increased: 30 - 300 Severely increased: >300 3 Microscopic follows if indicated. 4 Microscopic was gomez cated and was performed. 5 Prediabetes: 5.7 - 6 .4 Diabetes: [...] is recommended. Procedures Date Code Description Status 07/22/2024 40609 Glucose Monitoring Interpeta tion And Report Completed 03/11/2024 17374 Glucose Monitoring Interpeta tion And Report Completed 08/31/2023 83178 Glucose Monitoring Interpeta tion And Report Completed 05/29/2023 96751 Glucose Monitoring Interpeta tion And Report Completed 02/16/2023 54091 Glucose Monitoring Interpeta tion And Report Completed 11/15/2022 80300 Glucose Monitoring Interpeta tion And Report Completed 05/16/2022 16059 Glucose Monitoring Interpeta tion And Report Completed 02/15/2022 61396 Glucose Monitoring Interpeta tion And Report Completed 02/03/2022 NSHOWOFF No Show Office Visit Complet ed 11/04/2021 49898 Glucose Monitoring Interpeta tion And Report Completed Medical Devices Description No Information Available Encounters Type Date Location Provider Dx Diagnosis Office Visit 07/22/2024 2:15p Main Office Alexander Watters M.D. E11.9 Type 2 diabetes mellitus without complications I63.50 Cereb infrc due to u nsp occls or stenos of unsp cereb artery E78.5 Hyperlipidemia, unsp ecified I10 Essential (primary) hypertension Assessments Date Code Description Provider 07/22/2024 E11.9 Type 2 diabetes mellitus without complications Alexander Watters M.D. 07/22/2024 I63.50 CVA - cerebrovas cular accident due to cerebral artery occlusion Alexander Watters M.D. 07/22/2024 E78.5 Hyperlipidemia Alexander bowman M.D. 07/22/2024 I10 Hypertensive disorder Alexander schulz M.D. Plan of Treatment Future Appointment(s):* 11/18/2024 1:45 pm - Alexander Watters M.D. at Main Office 07/22/2024 - Alexander Watters M.D.* E11.9 Type 2 diabetes mellitus without complications * I63.50 CVA - cerebrovascular accident due to cerebral artery occlusion * E78.5 Hyperlipidemia * I10 Hypertensive disorder Functional Status Description No Information Available Mental Status Description No Information Available Referrals Description No Information Available
--- OUTSIDE RECORDS SUMMARY | 2024-10-23 16:09 | XMS_ITS | Encounter Summary ---
Author Organization [employer] Address [address] [facility] [address] [place] [address] Care Team Providers Care Real Estate Clerk Name Role Phone Jenni Santiago MD Primary Care Provider [phone]- [phone] Reason for Visit * Reason Onset Date Comments Chart Prep 10/20/2024 Encounter Details Date Type Department Care Team ([facility] st Contact Info) Description 10/20/[address] [facility] PEDS [address] [place] [address] Jenni Santiago MD [address] [place] [address] Chart Prep Social History Tobacco Use Types Packs/Day Years [...] encounter Miscellaneous Notes * Telephone Encounter - Azul Miller [place] - 10/20/2024 10:52 AM EDT Chart Prep Labs: not applicable Images: done Referrals: appointment pending Vaccines due: Hep B and Hep A Screenings: colonoscopy, eye exam, and foot exam Overdue care gaps: A1c, Glucose, PHQ-9, Oral health screening, and Tobacco documented in this encounter Plan of Treatment Upcoming Encounters Date Type Department Care Team (Late st Contact Info) Description 03/02/2025 3:00 PM EST Office Visit [facility] ADULT DENTAL [address] [place] [address] Wilfredo Santiago documented as of this encounter Visit Diagnoses Not on filedocumented in this encounter Additional Health Concerns Assessment Noted Time PHQ-9 Depression Total Score: 15 025 10:01 AM EST documented as of this encounter Care Teams Real Estate Clerk Relationship Specialty Start Date End Date Jenni Santiago MD [address] [place] [address] PCP - General Internal Medicine 02/05/18 documented as of this encounter
--- OUTSIDE RECORDS SUMMARY | 2024-10-23 16:09 | XMS_ITS | Clinical Summary ---
Author Organization [employer] Address [address] [facility] [address] [place] [address] Care Team Providers Care Bryologist Name Role Phone Jenni Santiago MD Primary Care Provider Allergies Active Allergy Reactions Criticality Noted Date Comments Pollen Extract 10/02/2022 Medications * This document contains information received from the source organization and may not represent a complete record from that organization. ammonium lactate (AmLactin) 12 % lotionIndications :Dry skin Apply to affected area daily after shower. 500 g 3 3 Active diazePAM (Valium) 5 MG tablet Take 1 tablet by mouth if needed at bedtime. 3 Active ezetimibe (Zetia) 10 MG tablet Take 1 tablet by mouth at bedtime. 3 Active finasteride (Proscar) 5 MG tablet Take 1 tablet by mouth at bedtime. 3 Active Accu-Chek Guide test strip TEST BLOOD SUGAR 5-6 TIMES DAILY 3 Active Insulin Lispro 100 UNIT/ML solution INJECT 100 UNITS via pump daily 3 Active venlafaxine XR (Effexor XR) 150 MG 24 hr capsule Take 1 capsule by mouth in the morning. 3 Active gabapentin (Neurontin) 600 MG tablet Take 1 tablet by mouth if needed in the morning and at bedtime. 3 Active Accu-Chek FastClix Lancets misc USE 5-6 TIMES daily 3 Active glucose 4 g chewable tabletIndications :Type 2 diabetes mellitus without complication, with long-term current use of insulin ([facility]) Chew 4 tablets (16 g) if needed for low blood sugar. 50 tablet 12 3 Active omeprazole (PriLOSEC) [address] capsule TAKE ONE CAPSULE EVERY MORNING 30 capsule 5 4 Active Misc. Devices (Pulse Oximeter For Finger) miscIndications:C OVID-19 To use every 4 hours. Call the office if O2 Sat < 90% 1 each 4 Active hyoscyamine ER (Levbid) 0.375 MG 12 hr tabletIndications :Drooling Take 1 tablet (0.375 mg) by mouth every 12 (twelve) hours if needed for cramping. Do not crush or chew. 60 tablet 12 4 12/06/19 25 Active atorvastatin (Lipitor) 40 MG tablet Take 1 tablet by mouth at bedtime. Active aspirin 81 MG EC tablet Take 81 mg by mouth Once per day. 4 Active aspirin 81 MG EC tabletIndications :Cerebrovascular accident (CVA) due to other mechanism ([facility]) Take 1 tablet (81 mg) by mouth Once per day. 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 18 g 3 5 05/10/19 26 Active amoxicillin (Amoxil) 500 MG capsule Take 4 tabs (2 grams) 1 hour prior to dental procedure 16 capsule 3 5 Active losartan-hydroCHL OROthiazide (Hyzaar) 100-12.5 MG tablet TAKE ONE TABLET EVERY MORNING 30 tablet 11 5 Active amLODIPine (Norvasc) 5 MG tabletIndications :Essential hypertension TAKE ONE TABLET EVERY MORNING 90 tablet 3 5 Active cetirizine (ZyrTEC) 10 MG tabletIndications :Drooling TAKE ONE TABLET EVERY MORNING 90 tablet 1 5 Active clopidogrel (Plavix) 75 MG tablet TAKE ONE TABLET EVERY MORNING 30 tablet 1 5 Active amoxicillin (Amoxil) 500 MG capsule Take 4 tabs (2 grams) 1 hour prior to dental procedure 12 capsule 5 Active clopidogrel (Plavix) 75 MG tablet TAKE ONE TABLET EVERY MORNING 30 tablet 1 5 Active Active Problems Problem Noted Date Diagnosed [...] reflux disease 01/24/2011 Depressive disorder 09/21/2010 Encounters Date Type Department Care Team Description 10/23/2024 Telephone [facility] [address] [place] [address] Jenni Santiago MD Medication Question 10/21/2024 1:30 PM EDT Office Visit [facility] [address] [facility] [place] [address] Jenni Santiago MD Type 2 diabetes mellitus without complication, with long-term current use of insulin (CMS/HCC) (Primary Dx); History of smoking 25-50 pack years; Screening for colon cancer; Hepatitis C virus infection without hepatic coma, unspecified chronicity; Cerebrovascular accident (CVA) due to other mechanism (CMS/HCC); Essential hypertension 10/21/2024 Travel 10/20/2024 Telephone [facility] [address] [place] [address] Jenni Santiago MD Chart Prep 09/18/2024 Refill [facility] [address] [place] [address] Jenni Santiago MD 09/10/2024 Orders Only [facility] [address] [place] [address] [phone] ProviderHai MD 08/28/2024 3:00 PM EDT Office Visit [facility] [address] [place] [address] Wilfredo Santiago Dental calculus (Primary Dx) 08/04/2024 Orders Only [facility] [address] [place] [address] Jenni Santiago MD 07/31/2024 Refill [facility] [address] [place] [address] Jenni Sarkar MD 07/31/2024 Refill [facility] [address] [place] [address] Jenni Santiago MD 07/28/2024 Refill [facility] [address] [place] [address] Jenni Santiago MD Drooling from Last 3 Months Immunizations Immunization Administration Dates Next Due Influenza High-dose Quadriva lent Preservative Free 11/24/2021,12/06/2020,12/03/2019 Influenza Quadrivalent Adjuvanted 01/17/2023 Influenza injectable quadriv alent IIV4 with preservative 10/25/2015,10/21/2014 Influenza injectable quadriv alent preservative free 11/01/2018 Influenza, High Dose Seasona l, Preservative Free 12/10/2023 Influenza, IIV3, injectable 12/02/2013 Influenza, Split (incl. mateo fied surface antigen) 11/22/2012,10/06/2011 Moderna Covid-19 Vaccine 12+ 12/06/2020 Pfizer Covid-19 Vaccine 12+ 05/04/2020, Pfizer Covid-19 Vaccine 12+ Bivalent 12/09/2021 Pneumococcal Conjugate PCV 13 02/01/2017 Pneumococcal Polysaccharide PPSV23 11/01/2018 RSV Adjuvant 01/17/2023 Tdap 03/05/2024,02/01/2017 Zoster, Recombinant 09/17/2019,11/01/2018 Social History Tobacco Use [...] Mass Index 30.11 10/21/2024 1:31 PM EDT Plan of Treatment Upcoming Encounters Date Type Department Care Team (Late st Contact Info) Description 03/02/2025 3:00 PM EST Office Visit [facility] [address] [place] [address] Wilfredo Santiago Health Maintenance Due Date Last Done Comments CT Colonography 1949 Colonoscopy 1949 Colorectal Cancer Screening 1949 FIT DNA/Cologuard 1949 FIT 1949 FOBT 1949 Sigmoidoscopy 1949 Eye Exam 08/26/1959 Hepatitis A Vaccines (1 of 2 - Risk 2-dose series) 1968 Hepatitis B Vaccines (1 of 3 - Risk 3-dose series) 2009 Lipid Panel 08/19/2024 08/20/2023 Depression Monitoring 09/07/2024 03/10/2024, 025 Dental Oral Exam 09/12/2024 03/14/2024, , 09/11/2022, Additional history exists COVID-19 Vaccine ( season) 2024 12/10/2023, 01/17/2023, 12/09/2021, Additional history exists Influenza Vaccine (#1) 2024 , 01/17/2023, 11/24/2021, Additional history exists Diabetes: Urine Protein Screening 10/31/2024 11/01/2023 Diabetes: Hemoglobin A1C 01/20/2025 025, 03/10/2024, 12/06/2023, Additional history exists Dental Prophylaxis 03/01/2025 08/28/2024, 0 03/14/2024, 05/03/2023, Additional history exists Alcohol/Substance Use Screening 03/10/2025 03/10/2024 SDOH Screening 03/10/2025 03/10/2024 Dental X-Ray: Bitewings 03/15/2025 03/14/19, 09/11/2022, 11/03/2021, Additional history exists Tobacco Screening 08/28/2025 08/28/2024 Diabetes: Foot Exam 10/21/2025 10/21/2024 Dental X-Ray: Full Mouth 03/15/2027 025, 11/20/2017, 04/29/2014, Additional history exists DTaP/Tdap/Td Vaccines (3 - Td or Tdap) 03/05/2034 03/05/2024, 02/01/2017 Pneumococcal Vaccine: 50+ Years Completed 11/01/2018, 02/01/2017 Zoster Vaccines Completed 09/17/2019, 11/01/2018 RSV Patients and Patients Aged 60 years or older Completed 01/17/2023 HIB Vaccines Aged Out No longer eligi [...] complication, with long-term current use of insulin ([facility]) POCT GLYCATED HEMOGLOBIN, TOTAL Routine 10/21/2024 1:59 PM EDT Type 2 diabetes mellitus without complication, with long-term current use of insulin (CMS/[facility]) VASC US CAROTID ARTERY DUPLEX BILATERAL Routine 09/04/2024 2:28 PM EDT CASE PRESENTATION, DETAILED AND EXTENSIVE TREATMENT PLANNING Routine 08/28/2024 3:00 PM EDT ORAL HYGIENE INSTRUCTIONS Routine 08/28/2024 3:00 PM EDT PROPHYLAXIS - ADULT Routine 08/28/2024 3 :00 PM EDT INTRAORAL - COMPLETE SERIES OF RADIOGRAPHIC IMAGES Routine 03/14/2024 2:00 PM EST PERIODIC ORAL EVALUATION - ESTABLISHED PATIENT Routine 03/14/2024 2:00 PM EST ALBUMIN, RANDOM URINE W/CREATININE Routine 11/01/2023 1:00 PM EDT Type 2 diabetes mellitus without complication, with long-term current use of insulin (CMS/[facility]) LIPID PANEL, STANDARD Routine 08/20/2023 12:24 PM EDT Type 2 diabetes mellitus without complication, with long-term current use of insulin (CMS/[facility]) Mixed hyperlipidemia from Last 3 Months or Most Recently Relevant to Health Maintenance Results * POCT Glucose (10/21/2024 2:00 PM [...] TEST ENTER/ED IT ORDERABLES Final Result * VASC US Carotid Artery Duplex Bilateral (09/04/2024 2:28 PM EDT) Historical Provider CV VASCULAR PROCEDURES Fi nal Result * Albumin, Random Urine W/Creatinine (11/01/2023 1:00 PM EDT) Creatinine, Urine 135.32 mg/dL [facility] Microalbumin Urine 24.0 mg/L [facility] Microalbum Creatinine Ratio Ur 17.7 <30 ug/mg cr [facility] Comment:Albumin/Creatinine R atio Reference Ranges: Normal: < 30 ug/mg creatinine Microalbuminuria: 30 - 300 ug/mg creatinineClinical Albuminuria: > 300 ug/mg creatinine Urine (Urine, Random) 11/01/2023 1:00 PM EDT 11/01/2023 2:10 PM EDT Jenni Santiago MD LAB URINE ORDERABLES Final Result [facility] [address] [place] [phone] * (ABNORMAL) Lipid Panel, Standard (08/20/2023 12:24 PM EDT) Triglycerides 158(H) <150 mg/dL [facility] Comment:Desirable Triglyceri de: less than 150 mg/dLBorderline High Triglyceride 150-199 mg/dLHigh Triglyceride: 200-499 mg/dLVery High Triglyceride: greater than or equal to 5OO mg/dL Cholesterol 130 <200 mg/dL [facility] Comment:Desirable Cholestero l: less than 200 mg/dLBorderline High Cholesterol: 200-239 mg/dLHigh Cholesterol: greater than 239 mg/dL LDL Cholesterol Calculated 60 <100 mg/dL [facility] Comment:Desirable LDL: less than 100 mg/dLNear Optimal/Above Optimal LDL: 110- 129 mg/dLBorderline High LDL: 130-159 mg/dLHigh LDL: 160-189 mg/dLVery High LDL: greater than or equal to 190 mg/dL HDL Cholesterol 39(L) >40 mg/dL [facility] Comment:Desirable HDL: great er than 40 mg/dL Note: This HDL assay may give artificially low results in patients with liver disease. Blood Venous blood specimen / Unknown 08/20/2023 12:24 PM EDT 08/20/2023 2:23 PM EDT Jenni Santiago MD LAB BLOOD ORDERABLES Final Result [facility] [address] [place] [phone] from Last 3 Months or Most Recently Relevant to Health Maintenance Insurance [place] [address] [place] [address] [place] [id number] [facility] STAND ADULT Care Teams Bryologist Relationship Specialty Start Date End Date Jenni Santiago MD [address] [place] [phone] PCP - General Internal Medicine 02/05/18
--- OUTSIDE RECORDS SUMMARY | 2024-10-23 16:09 | XMS_ITS | Encounter Summary ---
Author Organization [employer] Address [address] [facility] [address] [place] [address] Care Team Providers Care Services Program Manager Name Role Phone Jenni Santiago MD Primary Care Provider [phone] Reason for Visit * Reason Onset Date Comments Nurse Triage 10/29/2023 Encounter Details Date Type Department Care Team ([facility] st Contact Info) Description 10/29/2023 Telephone [facility] [address] [place] [address] Jenni Santiago MD [address] [place] [address] Nurse Triage Social History Tobacco Use Types [...] visit today will address current issue at [facility] [place]. Please follow with patient in regards to [...] Team appts. Available at time of call. [facility] hours and availability provided [...] 03/02/2025 3:00 PM EST Office Visit [facility] [address] [place] [address] Wilfredo Santiago documented as of this encounter Visit Diagnoses Not on filedocumented in this encounter Additional Health Concerns Assessment Noted Time PHQ-9 Depression Total Score: 9 03/03/19 23 2:43 PM EST documented as of this encounter Care Teams Services Program Manager Relationship Specialty Start Date End Date Jenni Santiago MD [address] [place] [address] PCP - General Internal Medicine 02/05/18 documented as of this encounter
--- OUTSIDE RECORDS SUMMARY | 2024-10-23 16:09 | XMS_ITS | Clinical Summary ---
Author Organization [address] [place] [address] Address [address] [place] [address] Phone Care Team Providers Care Director Digital Sales Name Role Phone Jenni Santiago MD Primary Care Provider [phone] [phone] Allergies No known active allergies Medications acetaminophen (TYLENOL) 500 mg tablet Take 500 mg by mouth every 6 hours as needed. Active amLODIPine (NORVASC) 5 mg tablet Take 1 Tablet by mouth daily. Active ammonium lactate (LAC-HYDRIN) 12 % lotion Apply to soles of feet daily. At night wear socks to bed 02/27/2023 Active apixaban (ELIQUIS) 2.5 mg tablet Take by mouth. Active atorvastatin (LIPITOR) 40 mg tablet Take 1 Tablet by mouth daily. Active cetirizine (ZyrTEC) 10 mg capsule Take by mouth. Active cholecalciferol (VITAMIN D-3) 50 mcg (2,000 unit) capsule Take by mouth. Active diazePAM (VALIUM) 5 mg tablet Take 5 [...] Other route. by Other route. - Other 02/28/2022 Active blood-glucose sensor (Dexcom G6 Sensor) device by Does not apply route. - Does not apply 11/11/2021 Active blood-glucose meter,continuou s (Dexcom G6 Right Of Way Agent) misc by Does not apply route. - Does not apply Active clopidogreL (PLAVIX) 75 mg tablet Take by mouth. - Oral 08/31/2023 Active lancets lancets by Other route. by Does not apply route. - Does not apply 02/28/2022 Active Active Problems Problem Noted Date Diagnosed Date Absent pedal pulses 04/03/2023 BPH (benign prostatic hyperplasia) 04/03/2023 CVA (cerebral vascular accident) ([facility] V24, C MS/[facility] V28) 04/03/2023 Depression 04/03/2023 GERD (gastroesophageal reflux disease) Glaucoma 04/03/2023 HLD (hyperlipidemia) 04/03/2023 HTN (hypertension) 04/03/2023 Non-healing wound of right heel 04/03/2023 PAD (peripheral artery disease) ([facility] V24) T2DM (type 2 diabetes mellitus) ([facility] V24, CM S/[facility] V28) 04/03/2023 Encounters Date Type Department Care Team Description 09/30/2024 3:00 PM EDT Office Visit Orthopedic Surgery [facility] [place] [address] [place] [phone] Froilan Escobar, DPM Ingrowing nail (Primary Dx); Primary osteoarthritis of both feet; Diabetic mononeuropathy simplex ([facility] V24, [facility] V28); Dermatophytosis of nail; Metatarsalgia of both feet; Type II diabetes mellitus with peripheral circulatory disorder (CMS/[facility] V24, CMS/[facility] V28); Pain in toe of right foot; Pain in toe of left foot 09/23/2024 12:00 PM EDT Ancillary Procedure [facility] [address] [address] PAD (peripheral artery disease) ([facility]/HCC V24) 09/04/2024 10:45 AM EDT Ancillary Procedure [facility] - [facility] [address] [address] History of TIA (transient ischemic attack) and stroke from Last 3 Months Immunizations Name Administration Dates Next Due Moderna SARS-CoV-2 COVID-19, mRNA, LNP-S, preservative free 12/06/2020 Pfizer SARS-CoV-2 COVID-19, mRNA, LNP-S, preservative free 05/04/2020,04/13/2020 Surgical History Surgery Date Site/Laterality Comments TOTAL KNEE ARTHROPLASTY Right PROCEDURE: HISTORICAL TOTAL KNEE REPLACE OTHER SURGICAL HISTORY 06/19/2023 PROCEDURE: NM SLCTV CATHJ 2ND ORDER ABDL PEL/LXTR ART BRNCH OTHER SURGICAL HISTORY 06/19/2023 PROCEDURE: X-RAY EXAM OF ARM/LEG ARTERY OTHER SURGICAL HISTORY 06/19/2023 PROCEDURE: ULTRASOUND GUIDANCE FOR VASCULAR AC OTHER SURGICAL HISTORY 07/05/2023 Right PROCEDURE: NM TEAEC W/GRAFT SUPERFICIAL FEMORAL ARTERY Medical History Medical History Date Comments Essential hypertension DX:Essent ial hypertension Diabetes mellitus type 2, co ntrolled, with complications (CMS/HCC V24, CMS/HCC V28) DX:Diabetes mellitus type 2, controlled, with complications ([facility]) Social History Tobacco Use Types Packs/Day [...] Care Team (Late st Contact Info) Description 10/24/2024 2:30 PM EDT Office Visit Vascular Surgery [facility] [place] [address] [place] [phone] Spike Anton MD [address] [place] [phone] 11/20/2024 3:30 PM EDT Office Visit Orthopedic Surgery [facility] 250 [address] [facility] 250 [place] [address] Froilan Escobar DPM [address] [facility] 250 [place] [address] Health Maintenance Due Date Last Done Comments [...] Diabetes: Annual Urine Albumin-Creatinine Ratio (uACR) 08/31/2023 Depression Screening 02/06/2024 Diabetes: Annual GFR (Glomerular Filtration Rate) 08/19/2024 08/20/2023 Hypertension/CHF/CAD Annual BMP Blood Test 08/19/2024 08/20/2023 Diabetes: Blood Sugar Control Test (HGBA1C) 09/07/2024 03/10/2024, 12/06/2023, 08/29/2021 COVID-19 Vaccine ( season) 2024 12/10/2023, 01/17/2023, 12/09/2021, Additional history exists Influenza Vaccine (#1) 2024 , 01/17/2023, 11/24/2021, Additional history exists Cholesterol Screening (Lipid Panel) 08/19/2028 08/20/2023, 08/20/2023 DTaP,Tdap,and Td Vaccines (3 - Td or Tdap) 03/05/2034 03/05/2024, 02/01/2017 Pneumococcal Vaccine: 50+ Years Completed 11/01/2018, 02/01/2017 Zoster Vaccines Completed 09/17/2019, 11/01/2018 Hepatitis C Screening Completed 08/29/2021 RSV Immunization Adult Patients Completed 01/17/2023 HIB Vaccines Aged Out No [...] Procedure Name Priority Date/Time Associated Diagnosis Comments VAS US DUPLEX LOWER EXT ARTERIES BILAT WITH BARON Routine 09/23/2024 12:44 PM EDT PAD (peripheral artery disease) ([facility] V24) VAS US DUPLEX CAROTID BILATERAL Routine 09/04/2024 10:35 AM EDT History of TIA (transient ischemic attack) and stroke ANNUAL BMP BLOOD TEST Routine 08/20/2023 LIPID PANEL Routine 08/20/2023 HEPATITIS C SCREENING Routine 08/29/2021 HEMOGLOBIN A1C Routine 08/29/2021 from Last 3 Months or Most Recently Relevant to Health Maintenance Results * Vascular US duplex lower extremity arteries bilateral with BARON (09/23/2024 12:44 PM EDT) Left Dist External Iliac PSV 144 cm/s CV [facility] LAB Left Prox External Iliac PSV 135 cm/s CV [facility] Left AT dist sys PSV 16 cm/s CV V[facility] LAB Left AT mid sys PSV 18 cm/s CV V[facility] LAB Left AT prox sys PSV 15 cm/s CV VAS LAB Left SAP DEVELOPER prox sys PSV 145 cm/s CV VAS LAB Left mid peroneal sys PSV 25 cm/s CV VAS LAB Left popliteal dist sys PSV 32 cm/s CV VAS LAB Left popliteal prox sys PSV 35 cm/s CV VAS LAB Left PT dist sys PSV 20 cm/s CV VAS LAB Left PT mid sys PSV 21 cm/s CV VAS LAB Left PT prox sys PSV 18 cm/s CV VAS LAB Left super femoral dist sys PSV 59 cm/s CV VAS LAB Left super femoral mid sys PSV 103 cm/s CV VAS LAB Left super femoral prox sys PSV 286 cm/s CV VAS LAB Right Dist External Iliac PSV 128 cm/s CV VAS LAB Right Prox External Iliac PSV 160 cm/s CV VAS LAB Right AT dist sys PSV 32 cm/s CV VAS LAB Right AT mid sys PSV 24 cm/s CV VAS LAB Right AT prox sys PSV 57 cm/s CV VAS LAB Right SAP DEVELOPER prox sys PSV 73 cm/s CV VAS LAB Right mid peroneal sys PSV 36 cm/s CV VAS LAB Right popliteal dist sys PSV 78 cm/s CV VAS LAB Right popliteal prox sys PSV 56 cm/s CV VAS LAB Right PT dist sys PSV 45 cm/s CV VAS LAB Right PT mid sys PSV 52 cm/s CV VAS LAB Right PT prox sys PSV 34 cm/s CV VAS LAB Right super femoral dist sys PSV 106 cm/s CV VAS LAB Right super femoral mid sys PSV 143 cm/s CV VAS LAB Right super femoral prox sys PSV 81 cm/s CV VAS LAB Right profunda sys PSV 178 cm/s CV VAS LAB Left profunda sys PSV 153 cm/s CV VAS LAB Right arm BP 117 mmHg CV VAS LAB Left arm BP 125 mmHg CV V[facility] LAB Right posterior tibial 99 mmHg CV VAS LAB Right Dorsalis Pedis 88 mmHg CV VAS LAB Right BARON 0.79 CV VAS LAB Left posterior tibial 104 mmHg CV VAS LAB Left Dorsalis Pedis 78 mmHg CV VAS LAB Left BARON 0.83 CV VAS LAB Anatomical Region Laterality Modality Vascular, Abdomen Ultrasound Narrative 09/28/2024 11:19 AM EDT Right: The BARON is 0.79 indicating mild PAD. Normal pulse volume waveform at the right ankle. Normal amplitude PPG waveform in the digit. There is moderate atherosclerotic palque in the right lower extremity arteries. There is severe (50-99%) stenosis of right profundofemoral artery. 3-vessel runoff is noted in the right calf. Left: The BARON is 0.83 indicating mild PAD. Normal pulse volume waveform at the left ankle. Normal amplitude PPG waveform in the digit. There is moderate atherosclerotic palque in the left lower extremity arteries. There is moderate (30-49 %) stenosis of of the right proximal superficial femoral artery. The below-knee vessels has monophasic flow. 3 vessel runoff is noted in the left calf. Right BARON Right BP= 117/74 Left BARON Left BP= 125/72 Right Lower Arterial Duplex The distal external iliac artery has biphasic flow. The common femoral artery has biphasic flow. The profunda femoris artery has biphasic flow. The proximal superficial femoral artery has biphasic flow. The mid superficial femoral artery has triphasic flow. The distal superficial femoral artery has triphasic flow. The popliteal artery has biphasic flow. The anterior tibial artery has biphasic flow. The posterior tibial artery has biphasic flow. The mid peroneal artery has biphasic flow. Left Lower Arterial Duplex The distal external iliac artery has biphasic flow. The common femoral artery has biphasic flow. The profunda femoris artery has biphasic flow. The superficial femoral artery has monophasic flow. The proximal superficial femoral artery is turbulent. The proximal popliteal artery has biphasic flow. The distal popliteal artery has monophasic flow. The anterior tibial artery has monophasic flow. The posterior tibial artery has monophasic flow. The mid peroneal artery has monophasic flow. Medical Recruiter Details A bowman scale, color and doppler analysis ultrasound was performed. During the study longitudinal views were obtained. Pulsed wave doppler was performed. us Spike Anton MD CV VASCULAR PROCEDURES Final Re sult * Vascular US duplex carotid bilateral (09/04/2024 10:35 AM EDT) Left CCA dist randle 20 cm/s CV V[facility] LAB Left CCA dist sys 92 cm/s CV VAS LAB LEFT COMMON CAROTID ARTERY MID D 15 cm/s CV VAS LAB LEFT COMMON CAROTID ARTERY MID S 72 cm/s CV VAS LAB Left CCA prox randle 17 cm/s CV VAS LAB Left CCA prox sys 106 cm/s CV VAS LAB LEFT EXTERNAL CAROTID ARTERY D 21 cm/s CV VAS LAB Left ECA sys 117 cm/s CV VAS LAB Left ICA/CCA sys 1.00 CV VAS LAB Left ICA dist randle 24 cm/s CV VAS LAB Left ICA dist sys 89 cm/s CV VAS LAB Left ICA mid randle 21 cm/s CV VAS LAB Left ICA mid sys 78 cm/s CV VAS LAB Left ICA prox randle 18 cm/s CV VAS LAB Left ICA prox sys 81 cm/s CV VAS LAB Left vertebral sys 37 cm/s CV VAS LAB Right CCA dist randle 13 cm/s CV VAS LAB Right cca dist sys 92 cm/s CV VAS LAB RIGHT COMMON CAROTID ARTERY MID D 13 cm/s CV VAS LAB RIGHT COMMON CAROTID ARTERY MID S 100 cm/s CV VAS LAB Right CCA prox randle 13 cm/s CV VAS LAB Right CCA prox sys 86 cm/s CV VAS LAB RIGHT EXTERNAL CAROTID ARTERY D 24 cm/s CV VAS LAB Right eca sys 135 cm/s CV VAS LAB Right ICA/CCA sys 1.00 CV VAS LAB Right ICA dist randle 12 cm/s CV VAS LAB Right ICA dist sys 71 cm/s CV VAS LAB Right ICA mid randle 23 cm/s CV VAS LAB Right ICA mid sys 93 cm/s CV VAS LAB Right ICA prox randle 16 cm/s CV VAS LAB Right ICA prox sys 80 cm/s CV VAS LAB Right vertebral sys 46 cm/s CV VAS LAB Left Prox Subclavian PSV 217 cm/s CV VAS LAB Right Prox Subclavian PSV 161 cm/s CV VAS LAB Right arm BP 122 mmHg CV VAS LAB Left arm BP 130 mmHg CV VAS LAB Anatomical Region Laterality Modality Vascular, Abdomen Ultrasound Narrative 09/09/2024 5:21 PM EDT RIGHT. 1. There is mild atherosclerotic plaque in the right carotid system as noted above. 2. There is a < 50% stenosis in the right internal carotid artery based on Doppler velocity. 3. The subclavian artery has normal Doppler flow velocity. 4. The vertebral artery has normal Doppler flow patterns with antegrade flow. LEFT. 1. There is mild atherosclerotic plaque in the left carotid system as noted above. 2. There is a < 50% stenosis in the left internal carotid artery based on Doppler velocity. 3. The subclavian artery has increased Doppler velocity which may suggest hemodynamically significant stenosis although there is no subclavian steal phenomenon. Please correlate clinically. 4. The vertebral artery has normal Doppler flow patterns with antegrade flow. Interpretation was done according to the [place] Symptomatic Carotid Endarterectomy Trial (NASCET) criteria and the Consensus Panel Grayscale and Doppler Ultrasound criteria for diagnosis of internal carotid artery stenosis. Please note that there are no clear criteria validated for the common carotid artery stenosis. Right Carotid The CCA has mild heterogeneous plaque and intimal thickening. The bifurcation has mild heterogeneous plaque. The proximal ICA has mild heterogeneous plaque. The ECA has no significant plaque. Right BP= 122/65 Vertebral flow is antegrade. Left Carotid The CCA has mild heterogeneous plaque. The bifurcation has mild heterogeneous plaque. The proximal ICA has mild heterogeneous plaque. The ECA has no significant plaque. Left BP= 130/77 Vertebral flow is antegrade. Medical Recruiter Details A bowman scale, color and doppler analysis ultrasound was performed. During the study longitudinal and transverse views were obtained. Pulsed wave doppler was performed. Spike Anton MD CV VASCULAR PROCEDURES Final Re sult * Annual BMP Blood Test (08/20/2023) Pathologist [facility] Annual [facility] Blood Test abstracted [facility] Provider HEALTH MAINTENANCE Final Result * Lipid panel (08/20/2023) [facility] Triglycerides 0 mg/dL Comment:no interpretation Cholesterol 0 mg/dL Comment:no interpretation HDL 0 mg/dL Comment:no interpretation LDL Cholesterol 0 mg/dL Comment:no interpretation Blood Venous blood specimen / Unknown Historical Provider LAB BLOOD ORDERABLES Janeth l Result * Hepatitis C Screening (08/29/2021) Hepatitis C Screening abstracted Historical Provider HEALTH MAINTENANCE Final Result * Hemoglobin A1c (08/29/2021) Hemoglobin A1C 0.0 % Comment:no interpretation Blood Venous blood specimen / Unknown Historical Provider LAB BLOOD ORDERABLES Janeth l Result from Last 3 Months or Most Recently Relevant to Health Maintenance Insurance MEDICARE MEDICAID - [place] Care Teams Director Digital Sales Relationship Specialty Start Date End Date Jenni Santiago MD [address] [place], [place] PCP - General Internal Medicine 08/03/21
--- OUTSIDE RECORDS SUMMARY | 2024-10-23 16:09 | XMS_ITS | Encounter Summary ---
Author Organization [employer] Address [address] [facility] 7t [place] [address] Care Team Providers Care Ship Liner Name Role Phone Jenni Santiago MD Primary Care Provider [phone] [phone] Encounter Details Date Type Department Care Team (Late st Contact Info) Description 07/05/2023 Orders Only [facility] [address] [place] [address] Provider, MD Hai Social History Tobacco Use [...] Description 03/02/2025 3:00 PM EST Office Visit [facility] ADULT DENTAL [address] [place] [address] Wilfredo Santiago documented as of this encounter [...] documented as of this encounter Care Teams Ship Liner Relationship Specialty Start Date End Date Jenni Santiago MD [address] [place] [address] PCP - General Internal Medicine 02/05/18 documented as of this encounter
--- OUTSIDE RECORDS SUMMARY | 2024-10-23 16:09 | XMS_ITS | Encounter Summary ---
Author Organization [employer] Address [address] [facility] 7t [place] [address] Care Team Providers Care Natural Gas Technician Name Role Phone Jenni Santiago MD Primary Care Provider [phone]- [phone] Encounter Details Date Type Department Care Team (Late st Contact Info) Description 08/04/2024 Orders Only [facility] MED & PEDS [address] [place], [place] [phone] Jenni Santiago MD [address] [place] [address] Social History Tobacco Use Types Packs/Day Years [...] Description 03/02/2025 3:00 PM EST Office Visit [facility] ADULT DENTAL [address] [place] [address] Wilfredo Santiago documented as of this encounter Visit Diagnoses Not on filedocumented in this encounter Additional Health Concerns Assessment Noted Time PHQ-9 Depression Total Score: 15 025 10:01 AM EST documented as of this encounter Care Teams Natural Gas Technician Relationship Specialty Start Date End Date eJnni Santiago MD [address] [place] [address] PCP - General Internal Medicine 02/05/18 documented as of this encounter
--- OUTSIDE RECORDS SUMMARY | 2024-10-23 16:09 | XMS_ITS | Encounter Summary ---
Author Organization [employer] Address [address] [facility] 7t [place] [address] Care Team Providers Care Ichthyologist Name Role Phone Jenni Santiago MD Primary Care Provider [phone]- [phone] Reason for Visit * Reason Onset Date Comments Medication Question 10/23/2024 Encounter Details Date Type Department Care Team (Late st Contact Info) Description 10/23/2024 Telephone [facility] [address] [place] [address] Jenni Santiago MD [address] [place] [address] Medication Question Social History Tobacco Use Types Packs/Day Years [...] encounter Miscellaneous Notes * Telephone Encounter - Emi Pepe RN - 10/23/2024 1:50 PM EDT Tristan Moreno, Could you tell me a little more about why you want to stop your blood thinner (Plavix) and start a blood pressure medication (Lisinopril). These medications work very differently in your body. It is not safe to stop taking the Plavix without discussing with your provider. I will send a message to your provider once I hear back from you. Have a great day, JENNIFER Middleton * Telephone Encounter - Andrew Perez - 10/23/2024 11:41 AM EDT TC from pt requesting blood thinner medication to be switched to Lisinopril . documented in this encounter Plan of Treatment Upcoming Encounters Date Type Department Care Team (Late st Contact Info) Description 03/02/2025 3:00 PM EST Office Visit [facility] ADULT D[facility]AL [address] [place] [address] Wilfredo Santiago documented as of this encounter Visit Diagnoses Not on filedocumented in this encounter Additional Health Concerns Assessment Noted Time PHQ-9 Depression Total Score: 15 025 10:01 AM EST documented as of this encounter Care Teams Ichthyologist Relationship Specialty Start Date End Date Jenni Santiago MD [address] [place] [id number] PCP - General Internal Medicine 02/05/18 documented as of this encounter
--- OUTSIDE RECORDS SUMMARY | 2024-10-23 16:09 | XMS_ITS | Encounter Summary ---
Author Organization [employer] Address [address] [facility] 7t [place] [address] Care Team Providers Care Sewer Cleaner Name Role Phone Jenni Santiago MD Primary Care Provider [phone]- [phone] Reason for Visit * Reason Onset Date Comments Nurse Triage 03/06/2024 Encounter Details Date Type Department Care Team ([facility] st Contact Info) Description 03/06/2024 Telephone [facility] CHC MED & PEDS [address] [place] [address] Jenni Santiago MD [address] [place] [address] Nurse Triage Social History Tobacco Use Types [...] PM EST Date: 03/05/24 Urgent Care : [facility] Urgent [facility] Seen for: had a fall and has 6 stitches Symptomatic Yes , inform eyebrow area continues to bleed. Called pt. He states he tripped last night 03/05/24 and hit head on computer chair. No loss of consciousness but did get laceration. Went to Urgent care in [facility] and got 6 stitches in head. [...] to appt. Advised to be seen in [facility] walk in but pt. Declines and wants televisit to speak to [facility] provider for order. Pt. Denies any headache, dizziness, nausea or double vision. Urgent care note not in chart. Pt. Seen at [facility] Phone number is [phone]. Please call Urgent care and have Pt.Note scanned into chart for televisit with Dr. Floyd for 03/07/24. Protocol Used: Head Injury (Adult) Protocol-Based Disposition: Go to ED/C Now (or to Office with PCP Approval)- Pt. Went to [facility] Urgent Care in [place], [place] last night. Positive Triage Question: * [...] on : Date: 03/05/24 Urgent Care : [facility] Urgent Care [place] Seen for: had a fall and has [...] 3:00 PM EST Office Visit [facility] ADULT DENTAL [address] [place] [address] Wilfredo Santiago documented as of this encounter Visit Diagnoses Not on filedocumented in this encounter Additional Health Concerns Assessment Noted Time PHQ-9 Depression Total Score: 9 03/03/19 23 2:43 PM EST documented as of this encounter Care Teams Sewer Cleaner Relationship Specialty Start Date End Date Jenni Santiago MD [address] [place] [address] PCP - General Internal Medicine 02/05/18 documented as of this encounter
--- OUTSIDE RECORDS SUMMARY | 2024-10-23 16:09 | XMS_ITS | Encounter Summary ---
Author Organization [employer] Address [address] [facility] 7t [place] [address] Care Team Providers Care Port Engineer Name Role Phone Jenni Santiago MD Primary Care Provider [phone]- [phone] Reason for Visit * Reason Onset Date Comments Appointment Request 01/03/2023 Encounter Details Date Type Department Care Team ([facility] st Contact Info) Description 01/03/2023 Telephone [facility] MEDICINE [address] [place] [address] Jenni Santiago MD [address] [place] [address] Appointment Request Social History Tobacco Use Types [...] message below. Pt informed that unfortunately the [facility] office does nothave COVID IZ or RSV vaccines. Pt advised to call local pharmacies and see if they have new RSV vaccine and if pt would like, appt can be booked in our [place] [facility] for the COVID and Flu. [...] Description 03/02/2025 3:00 PM EST Office Visit [facility] [address] [place] [address] Wilfredo Santiago documented as of this encounter Visit Diagnoses Not on filedocumented in this encounter Additional Health Concerns Assessment Noted Time PHQ-9 Depression Total Score: 9 03/03/19 23 2:43 PM EST documented as of this encounter Care Teams Port Engineer Relationship Specialty Start Date End Date Jenni Santiago MD [address] [place] [address] PCP - General Internal Medicine 02/05/18 documented as of this encounter
--- OUTSIDE RECORDS SUMMARY | 2024-10-23 16:09 | XMS_ITS | Encounter Summary ---
Author Organization [employer] Address [address] [facility] 7t [place] [address] Care Team Providers Care Procedures Tech Name Role Phone Jenni Santiago MD Primary Care Provider +1- [phone] Reason for Visit * Reason Onset Date Comments Med Refill 12/27/2022 Encounter Details Date Type Department Care Team ([facility] st Contact Info) Description 12/27/2022 Telephone [facility] MED & PEDS [address] [place] [address] Jenni Santiago MD [address] [place] [address] Med Refill Social History Tobacco Use Types [...] 2.5 MG tablet to be sent to [facility] pharmacy documented in this encounter Plan of Treatment Upcoming Encounters Date Type Department Care Team (Late st Contact Info) Description 03/02/2025 3:00 PM EST Office Visit [facility] ADULT DENTAL [address] [place] [address] Wilfredo Santiago documented as of this encounter Visit Diagnoses Not on filedocumented in this encounter Additional Health Concerns Assessment Noted Time PHQ-9 Depression Total Score: 9 03/03/19 23 2:43 PM EST documented as of this encounter Care Teams Procedures Tech Relationship Specialty Start Date End Date Jenni Santiago MD [address] [place] [address] PCP - General Internal Medicine 02/05/18 documented as of this encounter
--- OUTSIDE RECORDS SUMMARY | 2024-10-23 16:09 | XMS_ITS | Encounter Summary ---
Author Organization [employer] Address [address] [facility] 7[address] [place] [address] Care Team Providers Care Cross Cut Saw Operator Name Role Phone Jenni Santiago MD Primary Care Provider [phone] Encounter Details Date Type Department Care Team (Late Contact Info) Description 01/05/2022 Abstract [facility] MEDICINE [address] [place] [address] Jenni Santiago MD 505 [place], [place] [phone] Essential hypertension (Primary Dx); Gastroesophageal reflux disease without esophagitis; Depressive disorder; Dry skin; Type 2 diabetes mellitus without complication, with long-term current use of insulin ([facility]) Social History Tobacco Use Types Packs/Day Years [...] Department Care Team (Late Contact Info) Description 03/02/2025 3:00 PM EST Office Visit [facility] CHC ADULT DENTAL [address] [place], [place] [phone] Wilfredo Santiago documented as of this encounter Visit Diagnoses Diagnosis Essential hypertension- Primary Unspecified essential hypertension Gastroesophageal reflux disease without esophagitis Esophageal reflux Depressive disorder Depressive disorder, not elsewhere classified Dry skin Other symptoms involving skin and integumentary tissues Type 2 diabetes mellitus without complication, with long-term current use of insulin ([facility]) documented in this encounter Care Teams Cross Cut Saw Operator Relationship Specialty Start Date End Date Jenni Santiago MD [address] [place] [address] PCP - General Internal Medicine 02/05/18 documented as of this encounter
--- OUTSIDE RECORDS SUMMARY | 2024-10-23 16:09 | XMS_ITS | Encounter Summary ---
Author Organization [employer] Address 75 [facility] 7t [place] [address] Care Team Providers Care Multi Media Specialist Name Role Phone Jenni Santiago MD Primary Care Provider +1- [phone] Encounter Details Date Type Department Care Team (Late st Contact Info) Description 11/05/2023 Orders Only [facility] CHC MED & PEDS [address] [place], [place] [phone] Jenni Santiago MD 505 [place] [address] Cellulitis and abscess of trunk; Cellulitis of [...] 3:00 PM EST Office Visit [facility] ADULT DENTAL [address] [place] [address] Wilfredo Santiago documented as of this encounter Visit Diagnoses Diagnosis Cellulitis and abscess of trunk Cellulitis of back except buttock documented in this encounter Additional Health Concerns Assessment Noted Time PHQ-9 Depression Total Score: 9 03/03/19 23 2:43 PM EST documented as of this encounter Care Teams Multi Media Specialist Relationship Specialty Start Date End Date Jenni Santiago MD [address] [place] [address] PCP - General Internal Medicine 02/05/18 documented as of this encounter
--- OUTSIDE RECORDS SUMMARY | 2024-10-23 16:09 | XMS_ITS | Encounter Summary ---
Author Organization [employer] Address [address] [facility] 7t [place] [address] Care Team Providers Care Athletic Coach Name Role Phone Jenni Santiago MD Primary Care Provider +1- [phone] Reason for Visit * Reason Onset Date Comments callback requested 01/15/2024 Encounter Details Date Type Department Care Team ([facility] st Contact Info) Description 01/15/2024 Telephone [facility] MEDICINE [address] [place] [address] Jenni Santiago MD [address] [place] [address] callback requested Social History Tobacco Use Types [...] know why are they calling him. Callback [phone] documented in this encounter Plan of Treatment Upcoming Encounters Date Type Department Care Team (Late st Contact Info) Description 03/02/2025 3:00 PM EST Office Visit [facility] ADULT DENTAL 505 [place] [address] Wilfredo Santiago documented as of this encounter Visit Diagnoses Not on filedocumented in this encounter Additional Health Concerns Assessment Noted Time PHQ-9 Depression Total Score: 9 03/03/19 2:43 PM EST documented as of this encounter Care Teams Athletic Coach Relationship Specialty Start Date End Date Jenni Santiago MD [address] [place] [address] PCP - General Internal Medicine 02/05/18 documented as of this encounter
--- OUTSIDE RECORDS SUMMARY | 2024-10-23 16:09 | XMS_ITS | Encounter Summary ---
Author Organization [facility] Address [address] [facility] [address] [place] [address] Care Team Providers Care Dance Critic Name Role Phone Jenni Santiago MD Primary Care Provider +1- [phone] Encounter Details Date Type Department Care Team (Latest Contact Info) Description 12/23/2019 Abstract [facility] CONVERSION[facility] Dental, Provider, DDS Social History [...] Description 03/02/2025 3:00 PM EST Office Visit [facility] ADULT DENTAL [address] [place] [address] Wilfredo Santiago documented as of this encounter Visit Diagnoses Not on filedocumented in this encounter Care Teams Dance Critic Relationship Specialty Start Date End Date Jenni Santiago MD 505 [place] [address] PCP - General Internal Medicine 02/05/18 documented as of this encounter
--- OUTSIDE RECORDS SUMMARY | 2024-10-23 16:09 | XMS_ITS | Encounter Summary ---
Author Organization [employer] Address [address] [facility] [address] [address] Care Team Providers Care Project Developer Name Role Phone Jenni Santiago MD Primary Care Provider +1- [phone] Reason for Visit * Reason Comments Med Refill Encounter Details Date Type Department Care Team (Late st Contact Info) Description 02/22/2022 Refill [facility] MEDICINE [address] [place] [address] Carlene Dawson MD 505 [place] [address] Essential hypertension Social History Tobacco Use Types [...] Description 03/02/2025 3:00 PM EST Office Visit [facility] CHC ADULT DENTAL [address] [place] [address] Wilfredo Santiago documented as of this encounter Visit Diagnoses Diagnosis Essential hypertension Unspecified essential hypertension documented in this encounter Care Teams Project Developer Relationship Specialty Start Date End Date Jenni Santiago MD [address] [place] [address] PCP - General Internal Medicine 02/05/18 documented as of this encounter
--- OUTSIDE RECORDS SUMMARY | 2024-10-23 16:09 | XMS_ITS | Encounter Summary ---
Author Organization [facility] Address [address] [facility] [address] [place] [address] Care Team Providers Care Corporate Safety Coordinator Name Role Phone Jenni Santiago MD Primary Care Provider +1- [phone] Encounter Details Date Type Department Care Team (Latest Contact Info) Description 06/06/[address] [facility] CONVERSIONS Dental, Provider, DDS Social History [...] 3:00 PM EST Office Visit [facility] ADULT DENTAL [address] [place] [address] Wilfredo Santiago documented as of this encounter Visit Diagnoses Not on filedocumented in this encounter Care Teams Corporate Safety Coordinator Relationship Specialty Start Date End Date Jenni Santiago MD [address] [place] [address] PCP - General Internal Medicine 02/05/18 documented as of this encounter
--- OUTSIDE RECORDS SUMMARY | 2024-10-23 16:09 | XMS_ITS | Encounter Summary ---
Author Organization [employer] Address [address] [facility] 7t [place] [address] Care Team Providers Care Construction Cost Estimator Name Role Phone Jenni Santiago MD Primary Care Provider +1- [phone] Encounter Details Date Type Department Care Team (Late st Contact Info) Description 09/10/2024 Orders Only [facility] [address] [place] [address] Provider, MD Hai Social History Tobacco Use [...] [facility] ADULT DENTAL [address] [place] [address] Wilfredo Santiago documented as of this encounter Procedures Procedure Name Priority Date/Time Associated Diagnosis Comments VASC US CAROTID ARTERY DUPLEX BILATERAL Routine 09/04/2024 2:28 PM EDT documented in this encounter Results * VASC US Carotid Artery Duplex Bilateral (09/04/2024 2:28 PM EDT) us Historical Provider CV VASCULAR PROCEDURES Fi nal Result documented in this encounter Visit Diagnoses Not on filedocumented in this encounter Additional Health Concerns Assessment Noted Time PHQ-9 Depression Total Score: 15 025 10:01 AM EST documented as of this encounter Care Teams Construction Cost Estimator Relationship Specialty Start Date End Date Jenni Santiago MD [address] [place] [address] PCP - General Internal Medicine 02/05/18 documented as of this encounter
--- OUTSIDE RECORDS SUMMARY | 2024-10-23 16:09 | XMS_ITS | Clinical Summary ---
Author Organization [facility] [facility] Address [address] [facility] [address] [place] [phone] Phone Care Team Providers Care Batting Machine Operator Insulation Name Role Phone Pcp, Unknown Primary Care Provider Unavailabl e Social History Tobacco Use Types Packs/Day Years Used Date Smoking Tobacco: Never Assessed Education Answer Date Recorded Are you interested in more education? Not on filiberto e 03/20/2024 Are you concerned about learning? Not on file 03/20/2024 No 03/20/2024 No 03/20/2024 Digital Access Answer Date Recorded No 03/20/2024 No 03/20/2024 Reliable internet access at home? Not on file 03/20/2024 Device with a working camera? Not on file Sex and Gender Information Value Date Recorded Sex Assigned at Not on file Legal Sex Male 12:13 PM EST Gender Identity Not on file Sexual Orientation Not on file Plan of Treatment Not on file Medical Devices Not on file Insurance [facility] MEDICARE PART A & B [place] [facility] & [facility] & B [facility] MEDICARE PART A & B Care Teams Batting Machine Operator Insulation Relationship Specialty Start Date End Date Pcp, Unknown PCP - General 03/20/24 Additional Source Comments The information contained in this document represents components of the legal health record. It is not the complete legal health record.[facility]
--- OUTSIDE RECORDS SUMMARY | 2024-10-23 16:09 | XMS_ITS | Encounter Summary ---
Author Organization [employer] Address [address] [facility] 7t [place] [address] Care Team Providers Care Pulley Man Name Role Phone Jenni Santiago MD Primary Care Provider +1- [phone] Encounter Details Date Type Department Care Team (Latest Contact Info) Description 10/21/2024 Travel Social History Tobacco Use Types Packs/Day Years [...] Description 03/02/2025 3:00 PM EST Office Visit [facility] ADULT DENTAL 505 [place] [address] Wilfredo Santiago documented as of this encounter Visit Diagnoses Not on filedocumented in this encounter Additional Health Concerns Assessment Noted Time PHQ-9 Depression Total Score: 15 025 10:01 AM EST documented as of this encounter Care Teams Pulley Man Relationship Specialty Start Date End Date Jenni Santiago MD [address] [place] [address] PCP - General Internal Medicine 02/05/18 documented as of this encounter
--- OUTSIDE RECORDS SUMMARY | 2024-10-23 16:09 | XMS_ITS | Encounter Summary ---
Author Organization [employer] Address [address] [facility] 7t [place] [address] Care Team Providers Care Wet Roller Name Role Phone Jenni Santiago MD Primary Care Provider [phone] Encounter Details Date Type Department Care Team (Late Contact Info) Description 05/30/2022 Orders Only [facility] CHC MED & PEDS [address] [place], [place] [phone] Jenni Santiago MD 505 [place] [address] Essential hypertension (Primary Dx); Depressive disorder; Other [...] Visit [facility] ADULT DENTAL [address] [place] [address] Wilfredo Santiago Scheduled Orders Name Type Priority [...] * Vitamin B12 (06/01/2022 3:34 PM EDT) Vitamin B12 267 200 - 1,100 pg/mL [facility] Comment: Please Note: Although the reference range [...] 06/02/2022 3:28 AM EDT FASTING:NO FASTING: NO Jenni Santiago MD LAB BLOOD ORDERABLES Final Result [facility] [address], [place] [address] [facility] [address] [place] [address] * (ABNORMAL) Comprehensive Metabolic Panel (06/01/2022 3:34 PM EDT) Glucose 86 65 - 139 mg/dL [facility] Comment: Non-fasting reference interval Urea Nitrogen (BUN) 20 7 - 25 mg/dL [facility] Creatinine, Serum 0.67(L) 0.70 - 1.28 mg/dL [facility] eGFR 99 > OR = 60 mL/min/1. 73m2 [facility] [place] [facility] Comment: The eGFR is based on the CKD-EPI 2020 equation. To calculate the new eGFR from a previous Creatinine or Cystatin C result, go to https://www.kidney.org/professionals/ kdoqi/gfr%5Fcalculator BUN/Creatinine Ratio 30(H) 6 - 22 (calc) [facility] Sodium 139 135 - 146 mmol/L [facility] Potassium 4.8 3.5 - 5.3 mmol/L [facility] Chloride 99 98 - 110 mmol/L [facility] [place] [facility] Carbon Dioxide 28 20 - 32 mmol/L [facility] Calcium 9.8 8.6 - 10.3 mg/dL [facility] [place] [facility] Protein, Total 7.0 6.1 - 8.1 g/dL [facility] Albumin 4.4 3.6 - 5.1 g/dL [facility] [place] [facility] Globulin 2.6 1.9 - 3.7 g/dL (calc) [facility] Albumin/Globuli n Ratio 1.7 1.0 - 2.5 (calc) [facility] Bilirubin, Total 0.9 0.2 - 1.2 mg/dL [facility] Alkaline Phosphatase 87 35 - 144 U/L [facility] AST 25 10 - 35 U/L [facility] ALT 22 9 - 46 U/L [facility] Blood Venous blood specimen / Unknown 06/01/2022 3:34 PM EDT 06/01/2022 3:35 PM EDT Narrative [facility] - 06/02/2022 3:28 AM EDT FASTING:NO FASTING: NO us Jenni Santiago MD LAB BLOOD ORDERABLES Final Result [facility] [address], [place] [address] [facility] [address] [place] [address] documented in this encounter Visit Diagnoses Diagnosis Essential hypertension- Primary Unspecified essential hypertension Depressive disorder Depressive disorder, not elsewhere classified Other obesity documented in this encounter Additional Health Concerns Assessment Noted Time PHQ-9 Depression Total Score: 9 03/03/19 23 2:43 PM EST documented as of this encounter Care Teams Wet Roller Relationship Specialty Start Date End Date Jenni Santiago MD [address] [place] [address] PCP - General Internal Medicine 02/05/18 documented as of this encounter
--- OUTSIDE RECORDS SUMMARY | 2024-10-23 16:09 | XMS_ITS | Encounter Summary ---
Author Organization [employer] Address [address] [facility] 7t [place] [address] Care Team Providers Care Control Technician Name Role Phone Jenni Santiago MD Primary Care Provider +1- [phone] Reason for Visit * Reason Onset Date Comments Nurse Triage 09/18/2022 Encounter Details Date Type Department Care Team ([facility] st Contact Info) Description 09/18/[address] [facility] CHC MED & PEDS [address] [place] [address] Jenni Santiago MD [address] [place], [place] [phone] Nurse Triage Social History Tobacco Use Types [...] Triage call Pt reports eating at a [employer] buffet 09/11/22 and having some calamari. Pt [...] . Pt is advised to come to [facility] today, Pt declined and reports will come to [facility] in the morning . Hours given opens [...] accepted this outcome Please contact pt at [phone] documented in this encounter Plan of Treatment Upcoming Encounters Date Type Department Care Team (Late st Contact Info) Description 03/02/2025 3:00 PM EST Office Visit [facility] ADULT DENTAL [address] [place] [address] Wilfredo Santiago documented as of this encounter Visit Diagnoses Not on filedocumented in this encounter Additional Health Concerns Assessment Noted Time PHQ-9 Depression Total Score: 9 03/03/19 23 2:43 PM EST documented as of this encounter Care Teams Control Technician Relationship Specialty Start Date End Date Jenni Santiago MD [address] [place] [address] PCP - General Internal Medicine 02/05/18 documented as of this encounter
--- OUTSIDE RECORDS SUMMARY | 2024-10-23 16:10 | XMS_ITS | Encounter Summary ---
Author Organization [employer] Address [address] [facility] 7t [place] [address] Care Team Providers Care Rough Rounder Machine Name Role Phone Jenni Santiago MD Primary Care Provider +1- [phone] Encounter Details Date Type Department Care Team (Late st Contact Info) Description 06/18/2023 Orders Only [facility] CHC MED & PEDS [address] [place], [place] [phone] Jenni Santiago MD [address] [place] [address] History of arthroplasty of right knee (Primary [...] Visit [facility] ADULT DENTAL [address] [place] [address] Wilfredo Santiago documented as of this encounter Visit Diagnoses Diagnosis History of arthroplasty of right knee- Primary documented in this encounter Additional Health Concerns Assessment Noted Time PHQ-9 Depression Total Score: 9 03/03/19 23 2:43 PM EST documented as of this encounter Care Teams Rough Rounder Machine Relationship Specialty Start Date End Date Jenni Santiago MD [address] [place] [address] PCP - General Internal Medicine 02/05/18 documented as of this encounter
--- OUTSIDE RECORDS SUMMARY | 2024-10-23 16:10 | XMS_ITS | Encounter Summary ---
Author Organization [employer] Address [address] [facility] 7t [place] [address] Care Team Providers Care Travel Guide Name Role Phone Jenni Santiago MD Primary Care Provider +1- [phone] Reason for Visit * Reason Comments Med Refill Encounter Details Date Type Department Care Team ([facility] st Contact Info) Description 04/25/2023 Refill [facility] MED & PEDS [address] [place] [address] Jenni Santiago MD [address] [place] [address] Social History Tobacco Use Types Packs/Day Years [...] 3:00 PM EST Office Visit [facility] ADULT DENTAL [address] [place] [address] Wilfredo Santiago documented as of this encounter Visit Diagnoses Not on filedocumented in this encounter Additional Health Concerns Assessment Noted Time PHQ-9 Depression Total Score: 9 03/03/19 23 2:43 PM EST documented as of this encounter Care Teams Travel Guide Relationship Specialty Start Date End Date Jenni Santiago MD [address] [place] [address] PCP - General Internal Medicine 02/05/18 documented as of this encounter
== END 2024-10-23 15:50 | disposition home or self-care (01) ==
LOC: HO.HPS 14:20
PROVIDERS: PCP Internal Medicine; Visit Provider Internal Medicine
DX: R06.09 Other forms of dyspnea (principal); Z78.9 Other specified health status
CPT/HCPCS: 99203

== ENCOUNTER → 2024-10-23 15:28 | Outpatient (BNV) | payer MEDICARE, MEDICAID, SELFPAY | PROVIDERS: PCP Internal Medicine; Referring Provider Internal Medicine; Visit Provider Radiology Diagnostic Radiology | DX: R06.09 Other forms of dyspnea (principal) | CPT/HCPCS: 71046 ==

== ENCOUNTER 2024-11-05 11:32 | Outpatient (REF) | payer MEDICARE, MEDICAID, SELFPAY ==
--- OUTSIDE RECORDS SUMMARY | 2024-11-05 13:07 | XMS_ITS | Clinical Summary ---
Author Organization [employer] [facility] Address [address] [address] Phone Care Team Providers Care Train Conductor Name Role Phone Pcp, Unknown Primary Care [...] file Medical Devices Not on file Insurance [facility] MEDICARE PART A & B [place] A & [facility] & B [facility] MEDICARE PART A & B Care Teams Train Conductor Relationship Specialty Start Date End Date Pcp, Unknown PCP - General 03/20/24 Additional Source Comments The information contained in this document represents components of the legal health record. It is not the complete legal health record.[facility]
--- OUTSIDE RECORDS SUMMARY | 2024-11-05 13:07 | XMS_ITS | Clinical Summary ---
Author Organization [address] [place] [address] Address [address] [place] [address] Phone Care Team Providers Care Information Assurance Manager Name Role Phone Jenni Santiago MD Primary Care Provider +1 -[phone] Allergies No known active allergies Medications acetaminophen [...] 11/11/2021 Active blood-glucose meter,continuou s ([employer] G6 Qa Internship) misc by Does not apply route. - Does not apply Active clopidogreL (PLAVIX) 75 mg tablet Take by mouth. - Oral 08/31/2023 Active lancets lancets by Other route. by Does not apply route. - Does not apply 02/28/2022 Active losartan-hydroC HLOROthiazide (Hyzaar) 100-25 mg per tablet Take 1 tablet by mouth 1 (one) time each day. Active Active Problems Problem Noted Date Diagnosed Date Absent pedal pulses 04/03/2023 BPH (benign prostatic hyperplasia) 04/03/2023 CVA (cerebral vascular accident) ([facility] V24, [facility] [place]/[facility] V28) 04/03/2023 Depression 04/03/2023 GERD (gastroesophageal reflux disease) Glaucoma 04/03/2023 HLD (hyperlipidemia) 04/03/2023 HTN (hypertension) 04/03/2023 Non-healing wound of right heel 04/03/2023 PAD (peripheral artery disease) ([facility] V24) T2DM (type 2 diabetes mellitus) ([facility] V24, CM S/[facility] V28) 04/03/2023 Encounters Date Type Department Care Team Description 10/24/2024 2:30 PM EDT Office Visit Vascular Surgery - [place] [address] [place] [address] Spike Anton MD History of TIA (transient ischemic attack) and stroke (Primary Dx); Carotid stenosis, asymptomatic, bilateral; PAD (peripheral artery disease) ([facility] V24) 09/30/2024 3:00 PM EDT Office Visit Orthopedic Surgery - [facility] [address] [facility] [address] [place] [address] Froilan Escobar, DPM Ingrowing nail (Primary Dx); Primary osteoarthritis of both feet; Diabetic mononeuropathy simplex ([facility] V24, [facility] V28); Dermatophytosis of nail; Metatarsalgia of both feet; Type II diabetes mellitus with peripheral circulatory disorder ([facility] V24, [facility] V28); Pain in toe of right foot; Pain in toe of left foot 09/23/2024 12:00 PM EDT Ancillary Procedure [facility] [address] [address] PAD (peripheral artery disease) ([facility]) 09/04/2024 10:45 AM EDT Ancillary Procedure [facility] [address] [address] History of TIA (transient ischemic attack) and stroke from Last 3 Months Immunizations Immunization Administration Dates Next Due Moderna SARS-CoV-2 COVID-19, mRNA, LNP-S, preservative free 12/06/2020 Pfizer SARS-CoV-2 COVID-19, mRNA, LNP-S, preservative free 05/04/2020,04/13/2020 Surgical History Surgery Date Site/Laterality Comments TOTAL KNEE ARTHROPLASTY Right PROCEDURE: HISTORICAL TOTAL KNEE REPLACE OTHER SURGICAL HISTORY 06/19/2023 PROCEDURE: MI SLCTV CATHJ 2ND ORDER ABDL PEL/LXTR ART BRNCH OTHER SURGICAL HISTORY 06/19/2023 PROCEDURE: X-RAY EXAM OF ARM/LEG ARTERY OTHER SURGICAL HISTORY 06/19/2023 PROCEDURE: ULTRASOUND GUIDANCE FOR VASCULAR AC OTHER SURGICAL HISTORY 07/05/2023 Right PROCEDURE: MI TEAEC W/GRAFT SUPERFICIAL FEMORAL ARTERY Medical History Medical History Date Comments Essential hypertension DX:Essent ial hypertension Diabetes mellitus type 2, co ntrolled, with complications ([facility] V24, [facility] V28) DX:Diabetes mellitus type 2, controlled, with complications ([facility]) Social History Tobacco Use Types Packs/Day Years [...] Sign Reading Time Taken Comments Blood Pressure 120/80 10/24/2024 2:32 PM EDT Pulse 64 10/24/2024 2:32 PM EDT Temperature - - Respiratory Rate 16 10/24/2024 2:32 PM EDT Oxygen Saturation - - Inhaled Oxygen Concentration - - Weight 89.8 kg (198 lb) 10/24/2024 2:32 PM EDT Height 175.3 cm (5' 9 ) 10/24/2024 2:32 PM EDT Body Mass Index 29.24 10/24/2024 2:32 PM EDT Plan of Treatment Upcoming Encounters Date Type Department Care Team (Late st Contact Info) Description 11/20/2024 3:30 PM EDT Office Visit Orthopedic Surgery - [place] [address] [facility] 250 [place] [address] Froilan Escobar DPM 175 [facility] 250 [place] [address] 09/23/2025 10:00 AM EDT Ancillary Procedure [facility] 101 300 [facility] 101 [place] [address] 10/23/2025 3:30 PM EDT Office Visit Vascular Surgery - [place] [address] [facility] [address] [place] [address] Spike Anton MD [address] [place] [address] Health Maintenance Due Date Last Done Comments Colorectal Cancer Screening: Colonoscopy 1950 Diabetes: Annual Foot Exam 08/26/1959 Diabetes: Annual Retina Eye Exam 08/26/1959 Hepatitis A Vaccines (1 of 2 - Risk 2-dose series) 1968 Hepatitis B Vaccines (1 of 3 - Risk 3-dose series) 2009 Abdominal Aortic Aneurysm (AAA) Screen 01/15/2022 Falls Risk Assessment 01/15/2022 Medicare Annual Wellness Visit 01/15/2022 Social Influencers of Health Screening 01/15/2022 Diabetes: Annual Urine Albumin-Creatinine Ratio (uACR) 08/31/2023 Depression Screening 02/06/2024 Diabetes: Annual GFR (Glomerular Filtration Rate) 08/19/2024 08/20/2023 Hypertension/CHF/CAD Annual BMP Blood Test 08/19/2024 08/20/2023 COVID-19 Vaccine ( season) 2024 12/10/2023, 01/17/2023, 12/09/2021, Additional history exists Influenza Vaccine (#1) 2024 , 01/17/2023, 11/24/2021, Additional history exists Diabetes: Blood Sugar Control Test (HGBA1C) 04/20/2025 10/21/2024, 03/10/2024, 12/06/2023, Additional history exists Cholesterol Screening (Lipid Panel) [...] 12:44 PM EDT PAD (peripheral artery disease) (CMS/HCC V24) VAS US DUPLEX CAROTID BILATERAL Routine [...] PSV 15 cm/s CV VAS LAB Left [facility] prox sys PSV 145 cm/s CV VAS [...] PSV 57 cm/s CV VAS LAB Right [facility] prox sys PSV 73 cm/s CV VAS [...] The mid peroneal artery has monophasic flow. Station Captain Details A bowman scale, color and doppler [...] Interpretation was done according to the [place] Symptomatic Carotid Endarterectomy Trial (NASCET) criteria and [...] Left BP= 130/77 Vertebral flow is antegrade. Station Captain Details A bowman scale, color and doppler analysis ultrasound was performed. During the study longitudinal and transverse views were obtained. Pulsed wave doppler was performed. Result [facility] Spike Anton MD CV VASCULAR PROCEDURES Final Re sult * Annual BMP Blood Test (08/20/2023) Pathologist [facility] Annual BMP Blood Test abstracted Result [facility] Provider [facility] Final Result * Lipid panel (08/20/2023) [facility] Triglycerides 0 mg/dL Comment:no interpretation Cholesterol 0 mg/dL Comment:no interpretation HDL 0 mg/dL Comment:no interpretation LDL Cholesterol 0 mg/dL Comment:no interpretation Blood Venous blood specimen / Unknown Result [facility] Provider LAB BLOOD ORDERABLES Janeth l Result * Hepatitis C Screening (08/29/2021) [facility] Hepatitis C Screening abstracted Result [facility] Provider [facility] Final Result * Hemoglobin A1c (08/29/2021) [facility] Hemoglobin A1C 0.0 % Comment:no interpretation Blood Venous blood specimen / Unknown Result [facility] Provider LAB BLOOD ORDERABLES Janeth l Result from Last 3 Months or Most Recently Relevant to Health Maintenance Insurance MEDICARE MEDICAID - [place] Care Teams Information Assurance Manager Relationship Specialty Start Date End Date Jenni Santiago MD [address] [place] [address] PCP - General Internal Medicine 08/03/21
--- OUTSIDE RECORDS SUMMARY | 2024-11-05 13:08 | XMS_ITS | Encounter Summary ---
Author Organization [employer] Address [address] [facility] 7t [place] [address] Care Team Providers Care Airline Customer Service Agent Name Role Phone Jenni Santiago MD Primary Care Provider +1 [phone] Reason for Visit * Reason Comments Med Refill Encounter Details Date Type Department Care Team ([facility] st Contact Info) Description 04/25/[address] [facility] MED & PEDS [address] [place] [address] Jenni Santiago MD [address] [place] [address] Social History Tobacco Use Types Packs/Day Years [...] Description 03/02/2025 3:00 PM EST Office Visit [facility] ADULT DENTAL [address] [place] [address] Wilfredo Santiago documented as of this encounter Visit Diagnoses Not on filedocumented in this encounter Additional Health Concerns Assessment Noted Time PHQ-9 Depression Total Score: 9 03/03/19 23 2:43 PM EST documented as of this encounter Care Teams Airline Customer Service Agent Relationship Specialty Start Date End Date Jenni Santiago MD [address] [place] [address] PCP - General Internal Medicine 02/05/18 documented as of this encounter
--- OUTSIDE RECORDS SUMMARY | 2024-11-05 13:08 | XMS_ITS | Encounter Summary ---
Author Organization [employer] Address [address] [facility] 7t [place] [address] Care Team Providers Care Solar Energy System Installer Name Role Phone Jenni Santiago MD Primary Care Provider +1- [phone] Reason for Visit * Reason Onset Date Comments Med Refill 12/27/2022 Encounter Details Date Type Department Care Team ([facility] st Contact Info) Description 12/27/2022 Telephone [facility] MED & PEDS [address] [place] [address] Jenni Santiago MD [address] [place] [address] Med Refill Social History Tobacco Use Types [...] 2.5 MG tablet to be sent to [facility] pharmacy documented in this encounter Plan of Treatment Upcoming Encounters Date Type Department Care Team (Late st Contact Info) Description 03/02/2025 3:00 PM EST Office Visit [facility] ADULT DENTAL [address] [place] [address] Wilfredo Santiago documented as of this encounter Visit Diagnoses Not on filedocumented in this encounter Additional Health Concerns Assessment Noted Time PHQ-9 Depression Total Score: 9 03/03/19 23 2:43 PM EST documented as of this encounter Care Teams Solar Energy System Installer Relationship Specialty Start Date End Date Jenni Santiago MD [address] [place] [address] PCP - General Internal Medicine 02/05/18 documented as of this encounter
--- OUTSIDE RECORDS SUMMARY | 2024-11-05 13:08 | XMS_ITS | Encounter Summary ---
Author Organization [employer] Address [address] [facility] [address] [place] [address] Care Team Providers Care Career And Guidance Counselor Name Role Phone Jenni Santiago MD Primary Care Provider +1- [phone] Reason for Referral * Consultation (Routine) - Closed Specialty Diagnoses / Procedures Referred By Ayde fry Referred To Contact Speech Pathology Diagnoses Cerebrovascular accident (CVA) due to other mechanism (HCC) Jenni Santiago MD [address] [place] [address] Phone: tel: fax: [facility] Speech & Hear. [address] [place] [address] [place] Phone: tel: fax: Referral ID Status Reason Start Date Expiration Date V isits Requested Visits Authorized [id number] Closed Specialty Services Required 02/01/2024 01/31/2025 1 1 Encounter Details Date Type Department Care Team (Late st Contact Info) Description 02/01/2024 Orders Only [facility] CHC MED & PEDS [address] [place], [place] [phone] Jenni Santiago MD [address] [place] [phone] Cerebrovascular accident (CVA) due to other mechanism [...] 03/02/2025 3:00 PM EST Office Visit [facility] ADULT DENTAL [address] [place] [address] Wilfredo Santiago documented as of this encounter Procedures Procedure Name Priority Date/Time Associated Diagnosis Comments AMB REFERRAL TO SPEECH THERAPY Routine 03/27/2024 Cerebrovascular accident (CVA) due to other mechanism (CMS/HCC) documented in this encounter Results * Referral to Speech Therapy (03/27/2024) us Thevenin Beauzile MD OUTPATIENT REFERRAL ORDERAB LES Final Result documented in this encounter Visit Diagnoses Diagnosis Cerebrovascular accident (CVA) due to other mechanism (HCC)- Primary documented in this encounter Additional Health Concerns Assessment Noted Time PHQ-9 Depression Total Score: 9 03/03/19 23 2:43 PM EST documented as of this encounter Care Teams Career And Guidance Counselor Relationship Specialty Start Date End Date Jenni Santiago MD [address] [place] [address] PCP - General Internal Medicine 02/05/18 documented as of this encounter
--- OUTSIDE RECORDS SUMMARY | 2024-11-05 13:08 | XMS_ITS | Encounter Summary ---
Author Organization [employer] Address [address] [facility] 7t [place] [address] Care Team Providers Care Enterer Name Role Phone Jenni Santiago MD Primary Care Provider +1- [phone] Reason for Visit * Reason Onset Date Comments Nurse Triage 09/18/2022 Encounter Details Date Type Department Care Team ([facility] st Contact Info) Description 09/18/2022 Telephone [facility] CHC MED & PEDS [address] [place] [address] Jenni Santiago MD [address] [place], [place] [phone] Nurse Triage Social History Tobacco Use Types [...] Triage call Pt reports eating at a [email or web address] buffet 09/11/22 and having some calamari. Pt [...] . Pt is advised to come to [facility] today, Pt declined and reports will come to [facility] in the morning . Hours [...] accepted this outcome Please contact pt at [phone] documented in this encounter Plan of Treatment Upcoming Encounters Date Type Department Care Team (Late st Contact Info) Description 03/02/2025 3:00 PM EST Office Visit [facility] ADULT DENTAL [address] [place] [address] Wilfredo Santiago documented as of this encounter Visit Diagnoses Not on filedocumented in this encounter Additional Health Concerns Assessment Noted Time PHQ-9 Depression Total Score: 9 03/03/19 23 2:43 PM EST documented as of this encounter Care Teams Enterer Relationship Specialty Start Date End Date Jenni Santiago MD [address] [place] [address] PCP - General Internal Medicine 02/05/18 documented as of this encounter
--- OUTSIDE RECORDS SUMMARY | 2024-11-05 13:08 | XMS_ITS | Encounter Summary ---
Author Organization [employer] [facility] Address [address] [facility] 7t [place] [address] Care Team Providers Care Correctional Agency Director Name Role Phone Jenni Santiago MD Primary Care Provider +1- [phone] Encounter Details Date Type Department Care Team (Latest Contact Info) Description 06/06/2018 Abstract [facility] CONVERSIONS Dental, Provider, DDS Social History [...] Description 03/02/2025 3:00 PM EST Office Visit [facility] ADULT DENTAL 505 [place] [address] Wilfredo Santiago documented as of this encounter Visit Diagnoses Not on filedocumented in this encounter Care Teams Correctional Agency Director Relationship Specialty Start Date End Date Jenni Santiago MD 505 [place] [address] PCP - General Internal Medicine 02/05/18 documented as of this encounter
--- OUTSIDE RECORDS SUMMARY | 2024-11-05 13:08 | XMS_ITS | Encounter Summary ---
Author Organization [employer] Address [address] [facility] 7t [place] [address] Care Team Providers Care Technology Internship Name Role Phone Jenni Santiago MD Primary Care Provider +1- [phone] Reason for Visit * Reason Onset Date Comments Nurse Triage 10/29/2023 Encounter Details Date Type Department Care Team ([facility] st Contact Info) Description 10/29/[address] [facility] CHC MED & PEDS [address] [place] [address] Jenni Santiago MD [address] [place] [address] Nurse Triage Social History Tobacco Use Types [...] visit today will address current issue at [facility] Walk In [place]. Please follow with patient in regards to [...] Team appts. Available at time of call. [facility] Walk In Center hours and [...] Description 03/02/2025 3:00 PM EST Office Visit [facility] ADULT DENTAL [address] [place] [address] Wilfredo Santiago documented as of this encounter Visit Diagnoses Not on filedocumented in this encounter Additional Health Concerns Assessment Noted Time PHQ-9 Depression Total Score: 9 03/03/19 23 2:43 PM EST documented as of this encounter Care Teams Technology Internship Relationship Specialty Start Date End Date Jenni Santiago MD [address] [place] [address] PCP - General Internal Medicine 02/05/18 documented as of this encounter
--- OUTSIDE RECORDS SUMMARY | 2024-11-05 13:08 | XMS_ITS | Encounter Summary ---
Author Organization [employer] Address [address] [facility] 7t [place] [address] Care Team Providers Care Bid Clerk Name Role Phone Jenni Santiago MD Primary Care Provider +1- [phone] Encounter Details Date Type Department Care Team (Late st Contact Info) Description 04/16/2024 Orders Only [facility] MEDICINE [address] [place] [address] Jenni Santiago MD [address] [place] [address] SOB (shortness of breath) Social History Tobacco [...] Description 03/02/2025 3:00 PM EST Office Visit [facility] ADULT DENTAL [address] [place] [address] Wilfredo Santiago documented as of this encounter Visit Diagnoses Diagnosis SOB (shortness of breath) Shortness of breath documented in this encounter Additional Health Concerns Assessment Noted Time PHQ-9 Depression Total Score: 15 025 10:01 AM EST documented as of this encounter Care Teams Bid Clerk Relationship Specialty Start Date End Date Jenni Santiago MD [address] [place] [address] PCP - General Internal Medicine 02/05/18 documented as of this encounter
--- OUTSIDE RECORDS SUMMARY | 2024-11-05 13:08 | XMS_ITS | Encounter Summary ---
Author Organization [employer] Address [address] [facility] 7t [place] [address] Care Team Providers Care Radiotelegrapher Name Role Phone Jenni Santiago MD Primary Care Provider +1 [phone] Encounter Details Date Type Department Care Team (Late st Contact Info) Description 07/05/2023 Orders Only [facility] [address] [place] [address] Provider, MD Hai Social History Tobacco Use [...] 03/02/2025 3:00 PM EST Office Visit [facility] ADULT DENTAL [address] [place] [address] Wilfredo Santiago documented as of this encounter [...] documented as of this encounter Care Teams Radiotelegrapher Relationship Specialty Start Date End Date Jenni Santiago MD [address] [place] [address] PCP - General Internal Medicine 02/05/18 documented as of this encounter
--- OUTSIDE RECORDS SUMMARY | 2024-11-05 13:08 | XMS_ITS | Encounter Summary ---
Author Organization [employer] Address [address] [facility] 7t [place] [address] Care Team Providers Care Career Advisor Name Role Phone Jenni Santiago MD Primary Care Provider +1- [phone] Reason for Visit * Reason Onset Date Comments Nurse Triage 03/06/2024 Encounter Details Date Type Department Care Team ([facility] st Contact Info) Description 03/06/2024 Telephone [facility] CHC MED & PEDS [address] [place] [address] Jenni Santiago MD [address] [place] [address] Nurse Triage Social History Tobacco Use Types [...] PM EST Date: 03/05/24 Urgent Care : [facility] Urgent [facility] Seen for: had a fall and has 6 stitches Symptomatic Yes , inform eyebrow area continues to bleed. Called pt. He states he tripped last night 03/05/24 and hit head on computer chair. No loss of consciousness but did get laceration. Went to Urgent care in [facility] and got 6 stitches in head. Was [...] Advised to be seen in [facility] walk in but pt. Declines and wants televisit to speak to [facility] provider for order. Pt. Denies any headache, dizziness, nausea or double vision. Urgent care note not in chart. Pt. Seen at [facility] Phone number is [phone]. Please call Urgent care and have Pt.Note scanned into chart for televisit with Dr. Floyd for 03/07/24. Protocol Used: Head Injury (Adult) Protocol-Based Disposition: Go to ED/C Now (or to Office with PCP Approval)- Pt. Went to [facility] Urgent Care in [place], [place] last night. Positive Triage Question: * [...] on : Date: 03/05/24 Urgent Care : [facility] Urgent Care [place] Seen for: had a fall and has [...] 03/02/2025 3:00 PM EST Office Visit [facility] ADULT DENTAL [address] [place] [address] Wilfredo Santiago documented as of this encounter Visit Diagnoses Not on filedocumented in this encounter Additional Health Concerns Assessment Noted Time PHQ-9 Depression Total Score: 9 03/03/19 23 2:43 PM EST documented as of this encounter Care Teams Career Advisor Relationship Specialty Start Date End Date Jenni Santiago MD [address] [place] [address] PCP - General Internal Medicine 02/05/18 documented as of this encounter
--- OUTSIDE RECORDS SUMMARY | 2024-11-05 13:08 | XMS_ITS | Encounter Summary ---
Author Organization [employer] Address [address] [facility] 7t [place] [address] Care Team Providers Care Optometric Assistant Name Role Phone Jenni Santiago MD Primary Care Provider +1- [phone] Reason for Visit * Reason Onset Date Comments Hospital Follow-up 01/24/2024 Encounter Details Date Type Department Care Team (Late st Contact Info) Description 01/24/2024 Telephone [facility] MEDICINE [address] [place] [address] Jenni Satniago MD [address] [place] [address] Hospital Follow-up Social History Tobacco Use Types [...] from pt requesting a HDF appt. Hospital: [facility] Date of admission: 01/18 Discharge date: 01/22 Diagnosed: Stroke Contact pt at [phone] *Send message to [place] Clinical Care Coordinators documented in this encounter Plan of Treatment Upcoming Encounters Date Type Department Care Team (Late st Contact Info) Description 03/02/2025 3:00 PM EST Office Visit [facility] ADULT DENTAL [address] [place] [address] Wilfredo Santiago documented as of this encounter Visit Diagnoses Not on filedocumented in this encounter Additional Health Concerns Assessment Noted Time PHQ-9 Depression Total Score: 9 03/03/19 23 2:43 PM EST documented as of this encounter Care Teams Optometric Assistant Relationship Specialty Start Date End Date Jenni Santiago MD [address] [place] [address] PCP - General Internal Medicine 02/05/18 documented as of this encounter
--- OUTSIDE RECORDS SUMMARY | 2024-11-05 13:08 | XMS_ITS | Encounter Summary ---
Author Organization [employer] Address 75 [facility] 7t [place] [address] Care Team Providers Care Rod Pointer Name Role Phone Jenni Santiago MD Primary Care Provider [phone]- [phone] Reason for Referral * Consultation (Routine) - Closed Specialty Diagnoses / Procedures Referred By Ayde fry Referred To Contact Pulmonary Disease Diagnoses Chest congestion Jenni Santiago MD [address] [place] [address] Phone: tel: fax: Daren Adams [address] [place] [address] Phone: tel: fax: Referral ID Status Reason Start Date Expiration Date V isits Requested Visits Authorized [id number] Closed Specialty Services Required 06/17/2024 06/17/2025 1 1 Encounter Details Date Type Department Care Team ([facility] st Contact Info) Description 06/17/2024 Orders Only [facility] CHC MED & PEDS [address] [place], [place] [phone] Jenni Santiago MD [address] [place] [address] Chest congestion (Primary Dx) Social History Tobacco [...] [facility] AD[facility] [address] [place] [address] Wilfredo Santiago Scheduled Referrals Name Type Priority [...] documented as of this encounter Care Teams Rod Pointer Relationship Specialty Start Date End Date Jenni Santiago MD [address] [place] [address] PCP - General Internal Medicine 02/05/18 documented as of this encounter
--- OUTSIDE RECORDS SUMMARY | 2024-11-05 13:08 | XMS_ITS | Encounter Summary ---
Author Organization [employer] Address 75 [facility] 7t [place] [address] Care Team Providers Care Sanitation Worker Hosing Machinery Name Role Phone Jenni Santiago MD Primary Care Provider +1- [phone] Encounter Details Date Type Department Care Team (Late st Contact Info) Description 09/10/2024 Orders Only [facility] [address] [place] [address] Provider, MD Hai Social History Tobacco Use [...] Description 03/02/2025 3:00 PM EST Office Visit [facility] ADULT DENTAL [address] [place] [address] Wilfredo Santiago documented as of this encounter [...] documented as of this encounter Care Teams Sanitation Worker Hosing Machinery Relationship Specialty Start Date End Date Jenni Santiago MD [address] [place] [address] PCP - General Internal Medicine 02/05/18 documented as of this encounter
--- OUTSIDE RECORDS SUMMARY | 2024-11-05 13:08 | XMS_ITS | Encounter Summary ---
Author Organization [employer] Address 75 [facility] [address] [address] Care Team Providers Care Lumber Straightened Name Role Phone Jenni Santiago MD Primary Care Provider +1- [phone] Reason for Visit * Reason Comments Med Refill Encounter Details Date Type Department Care Team (Late st Contact Info) Description 02/22/2022 Refill [facility] MEDICINE [address] [place] [address] Carlene Dawson MD 505 [place] [address] Essential hypertension Social History Tobacco Use Types [...] Description 03/02/2025 3:00 PM EST Office Visit [facility] CHC ADULT DENTAL 505 [place] [address] Wilfredo Santiago documented as of this encounter Visit Diagnoses Diagnosis Essential hypertension Unspecified essential hypertension documented in this encounter Care Teams Lumber Straightened Relationship Specialty Start Date End Date Jenni Santiago MD 505 [place] [address] PCP - General Internal Medicine 02/05/18 documented as of this encounter
--- OUTSIDE RECORDS SUMMARY | 2024-11-05 13:08 | XMS_ITS | Continuity of Care Document ---
Author Organization [facility] [address] [place] [address] Phone [phone] Care Team Providers Care Electrical Appliance Mechanic Name Role Phone Jenni Santiago M.D. Care Team Information Re ceiver [phone] Problems Active Problems Provider Date CVA - [...] Medications SIG Qnty Indications Ordering Provider Date Cljjpf03cp Tablets 1 by mouth every day 90tabs Alexander Watters M.D. 08/31/2023 Atorvastatin Xxjfcgn69ib Tablets Take One Tablet Every Night AT Bedtime 90tabs Alexander Watters M.D. 02/16/2023 Ioedmylwx83kf Tablets Take One Tablet Every Night AT Bedtime 90tabs Alexander Watters M.D. 10/30/2022 Gemtamxtrcxrkandsfd77v g Tablets Take One Capsule Every Morning Alexander Watters M.D. 05/16/2022 Vzkjzofyeb343xv Tablets take 1 tablet by mouth daily at bedtime 28tabs Alexander Watters M.D. 11/04/2021 Nghwadb132Wqrk/ML Solution 100 units daily via pump 90ml E11.9 Alexander Watters M.D. 09/19/2021 Sxnukfgl7nq Tablets 1 by mouth at night 90tabs Unknown Venlafaxine HCL ER37.5mg Caps ER 24HR Take One Capsule Every Morning Unknown Venlafaxine HCL ZR394ph Caps ER 24HR Take One Capsule Every Morning Unknown Emxqkbdqqi99md Capsules DR Take One Capsule By Mouth Every Morning Jenni Santiago M.D. SM Vitamin A380giv Capsules Take One Capsule By Mouth Every Morning Jenni Santiago M.D. Losartan Potassium/Hydrochlorot ibcakpf381-07.5mg Tablets 1 by mouth every day Jenni [...] David 20 mg/dL 5-40 LDL Chol Calc ([facility]) 66 mg/dL 0-99 LDL Calc Comment: TNP Albumin/Creatin ine Ratio, Random Urine 12/04/2023 [facility] Creatinine, Urine 159.9 mg/dL Not Estab. Albumin, Urine 18.1 ug/mL Not Estab. Alb/Creat Ratio 11 mg/gcreat 0-29 2 Urinalysis, Complete 12/04/2023 [facility] Specific [place] 1.020 1.005-1.0 30 pH 5.5 5.0-7.5 Urine-Color [...] Fingerstick 163 Free And Total PSA 08/14/2022 [facility] Total PSA 0.1 NG/ML (0-4) 7 Free PSA <0.1 NG/ML Percent Free PSA THEREFORE, THE P <SEE NOTE> % (25-100) 8 Urinary Microalbumin 08/14/2022 [facility] [id number] Duplicate Order TSH With Reflex To FT4 08/14/2022 [facility] TSH With Reflex To FT4 1.45 uIU/mL (0.4-4.2) Complete Abc With Diff 08/14/2022 [facility] WBC 7.6 K/MM3 (4.0-11.0 [...] K/MM3 (1.3-7.0) Lymph # 1.6 K/MM3 (0.8-3.1) Winston# 0.7 K/MM3 (0.4-1.3) Eo # 0.1 K/MM3 (0.0-0.4) Baso # 0.1 K/MM3 (0.0-0.1) Abs. Imm Gran 0.0 K/MM3 Neut 67.4 % (44-76) Lymph 20.6 % (15-43) Monocyte 9.2 % (4.5-10.5 ) Eo 1.7 % (0-6) Baso 0.7 % (0-2) Imm Gran 0.4 % Urinalysis Complete 08/14/2022 [facility] [id number] Duplicate Order Comprehensive Metabolic Panl 08/14/2022 [facility] Glucose 130 mg/dL High [...] 99 ML/MIN/1.73 M2 9 Urinalysis Complete 08/14/2022 [facility] Appear/Color YELLOW 10 SP. [place] 1.022 (1.002-1. 030) Urine PH 6.0 (5.0-8.0) Urine Albumin TRACE Abnormal (Neg) Urine Glucose NEGATIVE (Neg) Urine Ketones NEGATIVE (Neg) Urine Bilirubin NEGATIVE (Neg) Urine Hemoglobin NEGATIVE (Neg) Urine Nitrite NEGATIVE (Neg) Urine Leukocyte NEGATIVE (Neg) Urobilinogen NORMAL mg/dL (Norm) Urine WBCs <1 /HPF (0-5) Urine RBCs 1 /HPF (0-3) Bacteria SLIGHT HPF Abnormal (Neg) Mucus SLIGHT /LPF Urinary Microalbumin 08/14/2022 [facility] Micro-Albumin 17.0 mg/L (<20) 11 Malb/Creat Ratio 13.1 MG/GM (0-20) Urine Creat For Micro Albumin 126.1 mg/dL Hemoglobin A1c 05/16/2022 [facility]house Hemoglobin A1c 7.2% Glucose Fingerstick 05/16/2022 Inhouse Glucose Fingerstick 164 Hemoglobin A1c 02/15/2022 Inhouse Hemoglobin A1c 7.0% Glucose Fingerstick 02/15/2022 Inhouse Glucose Fingerstick 143 Lipid Panel 11/22/2021 [facility] Cholesterol, Total 174 mg/dL [...] recommended. Procedures Date Code Description Status 07/22/2024 19371 Glucose Monitoring Interpeta tion And Report Completed 03/11/2024 98826 Glucose Monitoring Interpeta tion And Report Completed 08/31/2023 76904 Glucose Monitoring Interpeta tion And Report Completed 05/29/2023 19308 Glucose Monitoring Interpeta tion And Report Completed 02/16/2023 65623 Glucose Monitoring Interpeta tion And Report Completed 11/15/2022 24043 Glucose Monitoring Interpeta tion And Report Completed 05/16/2022 35476 Glucose Monitoring Interpeta tion And Report Completed 02/15/2022 47302 Glucose Monitoring Interpeta tion And Report Completed 02/03/2022 NSHOWOFF No Show Office Visit Complet ed 11/04/2021 72476 Glucose Monitoring Interpeta tion And Report Completed [...]
--- OUTSIDE RECORDS SUMMARY | 2024-11-05 13:08 | XMS_ITS | Encounter Summary ---
Author Organization [employer] Address 75 [facility] 7[address] [place] [address] Care Team Providers Care Field Technical Support Consultant Name Role Phone Jenni Santiago MD Primary Care Provider Encounter Details Date Type Department Care Team (Late Contact Info) Description 01/05/2022 Abstract [facility] MEDICINE [address] [place] [address] Jenni Santiago MD [address] [place], [place] [phone] Essential hypertension (Primary Dx); Gastroesophageal reflux disease without esophagitis; Depressive disorder; Dry skin; Type 2 diabetes mellitus without complication, with long-term current use of insulin ([facility]) Social History Tobacco Use Types Packs/Day Years [...] Description 03/02/2025 3:00 PM EST Office Visit [facility] CHC ADULT DENTAL [address] [place], [place] [phone] Wilfredo Santiago documented as of this encounter Visit Diagnoses Diagnosis Essential hypertension- Primary Unspecified essential hypertension Gastroesophageal reflux disease without esophagitis Esophageal reflux Depressive disorder Depressive disorder, not elsewhere classified Dry skin Other symptoms involving skin and integumentary tissues Type 2 diabetes mellitus without complication, with long-term current use of insulin (HCC) documented in this encounter Care Teams Field Technical Support Consultant Relationship Specialty Start Date End Date Jenni Santiago MD [address] [place] [address] PCP - General Internal Medicine 02/05/18 documented as of this encounter
--- OUTSIDE RECORDS SUMMARY | 2024-11-05 13:08 | XMS_ITS | Encounter Summary ---
Author Organization [employer] Address 75 [facility] 7t [place] [address] Care Team Providers Care Used Car Make Ready Worker Name Role Phone Jenni Santiago MD Primary Care Provider +1- [phone] Encounter Details Date Type Department Care Team (Late st Contact Info) Description 11/05/[address] [facility] CHC MED & PEDS [address] [place], [place] [phone] Jenni Santiago MD [address] [place] [address] Cellulitis and abscess of trunk; Cellulitis of [...] 03/02/2025 3:00 PM EST Office Visit [facility] AD[facility] D[facility]AL [address] [place] [address] Wilfredo Santiago documented as of this encounter Visit Diagnoses Diagnosis Cellulitis and abscess of trunk Cellulitis of back except buttock documented in this encounter Additional Health Concerns Assessment Noted Time PHQ-9 Depression Total Score: 9 03/03/19 23 2:43 PM EST documented as of this encounter Care Teams Used Car Make Ready Worker Relationship Specialty Start Date End Date Jenni Santiago MD [address] [place] [address] PCP - General Internal Medicine 02/05/18 documented as of this encounter
--- OUTSIDE RECORDS SUMMARY | 2024-11-05 13:08 | XMS_ITS | Encounter Summary ---
Author Organization [employer] Address 75 [facility] 7t [place] [address] Care Team Providers Care Family Dentist Name Role Phone Jenni Santiago MD Primary Care Provider +1- [phone] Reason for Visit * Reason Onset Date Comments Appointment Request 01/03/2023 Encounter Details Date Type Department Care Team ([facility] st Contact Info) Description 01/03/2023 Telephone [facility] MEDICINE [address] [place] [address] Jenni Santiago MD [address] [place] [address] Appointment Request Social History Tobacco Use Types [...] your housing situation today? I have azaliadonell otrres 11/14/[address] you li [...] message below. Pt informed that unfortunately the [facility] office does nothave COVID IZ or RSV vaccines. Pt advised to call local pharmacies and see if they have new RSV vaccine and if pt would like, appt can be booked in our [place] for the COVID and Flu. [...] [facility]ULT [facility] [address] [place] [address] Wilfredo Santiago documented as of this encounter Visit Diagnoses Not on filedocumented in this encounter Additional Health Concerns Assessment Noted Time PHQ-9 Depression Total Score: 9 03/03/19 23 2:43 PM EST documented as of this encounter Care Teams Family Dentist Relationship Specialty Start Date End Date Jenni Santiago MD [address] [place] [address] PCP - General Internal Medicine 02/05/18 documented as of this encounter
--- OUTSIDE RECORDS SUMMARY | 2024-11-05 13:08 | XMS_ITS | Encounter Summary ---
Author Organization [employer] [facility] Address 75 [facility] [address] [place] [address] Care Team Providers Care Alodize Machine Operator Name Role Phone Jenni Santiago MD Primary Care Provider +1- [phone] Encounter Details Date Type Department Care Team (Latest Contact Info) Description 12/23/2019 Abstract [facility] CONVERSIONS Dental, Provider, DDS Social History [...] 3:00 PM EST Office Visit [facility] ADULT DENTAL [address] [place] [address] Wilfredo Santiago documented as of this encounter Visit Diagnoses Not on filedocumented in this encounter Care Teams Alodize Machine Operator Relationship Specialty Start Date End Date Jenni Santiago MD [address] [place] [address] PCP - General Internal Medicine 02/05/18 documented as of this encounter
--- OUTSIDE RECORDS SUMMARY | 2024-11-05 13:08 | XMS_ITS | Encounter Summary ---
Author Organization [employer] Address 75 [facility] 7t [place] [address] Care Team Providers Care Repossession Agent Name Role Phone Jenni Santiago MD Primary Care Provider +1- [phone] Encounter Details Date Type Department Care Team (Late st Contact Info) Description 08/04/2024 Orders Only [facility] CHC MED & PEDS [address] [place], [place] [phone] Jenni Santiago MD [address] [place] [address] Social History Tobacco Use Types Packs/Day Years [...] [facility] ADULT DENTAL [address] [place] [address] Wilfredo Santiago documented as of this encounter Visit Diagnoses Not on filedocumented in this encounter Additional Health Concerns Assessment Noted Time PHQ-9 Depression Total Score: 15 025 10:01 AM EST documented as of this encounter Care Teams Repossession Agent Relationship Specialty Start Date End Date Jenni Santiago MD [address] [place] [address] PCP - General Internal Medicine 02/05/18 documented as of this encounter
--- OUTSIDE RECORDS SUMMARY | 2024-11-05 13:08 | XMS_ITS | Encounter Summary ---
Author Organization [employer] Address 75 [facility] 7[address] [place] [address] Care Team Providers Care Managed Care Specialist Name Role Phone Jenni Santiago MD Primary Care Provider +1- [phone] Reason for Referral * Consultation (Urgent) - Authorized Specialty Diagnoses / Procedures Referred By Ayde fry Referred To Contact Otolaryngology Diagnoses Parotid mass Jenni Santiago MD [address] [place] [address] Phone: tel: fax: [facility] [address] Phone: tel: fax: Referral ID Status Reason Start Date Expiration Date Visits Requested Visits Authorized [id number] Authorized Specialty Services Required 02/08/2024 02/07/2025 1 1 Encounter Details Date Type Department Care Team ([facility] st Contact Info) Description 02/08/2024 Orders Only [facility] CHC MED & PEDS [address] [place] [address] Jenni Santiago MD [address] [place] [address] Parotid mass (Primary Dx) Social History Tobacco [...] [facility] [address] [place] [address] Wilfredo Santiago Scheduled Referrals Name Type Priority [...] documented as of this encounter Care Teams Managed Care Specialist Relationship Specialty Start Date End Date Jenni Santiago MD [address] [place] [address] PCP - General Internal Medicine 02/05/18 documented as of this encounter
--- OUTSIDE RECORDS SUMMARY | 2024-11-05 13:08 | XMS_ITS | Encounter Summary ---
Author Organization [employer] Address 75 [facility] 7t [place] [address] Care Team Providers Care Web Marketing Specialist Name Role Phone Jenni Santiago MD Primary Care Provider Encounter Details Date Type Department Care Team (Late Contact Info) Description 05/30/2022 Orders Only [facility] CHC MED & PEDS [address] [place], [place] [phone] Jenni Santiago MD [address] [place] [address] Essential hypertension (Primary Dx); Depressive disorder; Other [...] [facility] ADULT DENTAL [address] [place] [address] Wilfredo Santiago Scheduled Orders Name Type Priority [...] Vitamin B12 267 200 - 1,100 pg/mL [facility] Comment: Please Note: Although the reference range [...] LAB BLOOD ORDERABLES Final Result [facility] [address], [place] [address] [facility] [address] [place] [address] * (ABNORMAL) Comprehensive Metabolic Panel (06/01/2022 3:34 PM EDT) Glucose 86 65 - 139 mg/dL [facility] Comment: Non-fasting reference interval Urea Nitrogen (BUN) 20 7 - 25 mg/dL [facility] Creatinine, Serum 0.67(L) 0.70 - 1.28 mg/dL [email or web address] eGFR 99 > OR = 60 mL/min/1. 73m2 [email or web address] Comment: The eGFR is based on the CKD-EPI 2020 equation. To calculate the new eGFR from a previous Creatinine or Cystatin C result, go to https://www.kidney.org/professionals/ kdoqi/gfr%5Fcalculator BUN/Creatinine Ratio 30(H) 6 - 22 (calc) [email or web address] Sodium 139 135 - 146 mmol/L [email or web address] Potassium 4.8 3.5 - 5.3 mmol/L [email or web address] Chloride 99 98 - 110 mmol/L [facility] [place] [employer] [facility] Carbon Dioxide 28 20 - 32 mmol/L [facility] [place] [employer] Calcium 9.8 8.6 - 10.3 mg/dL [facility] [place] [employer] Protein, Total 7.0 6.1 - 8.1 g/dL [facility] [facility] Albumin 4.4 3.6 - 5.1 g/dL [email or web address] Globulin 2.6 1.9 - 3.7 g/dL (calc) [facility] [place] [employer] Albumin/Globuli n Ratio 1.7 1.0 - 2.5 (calc) [facility] [place] [employer] Bilirubin, Total 0.9 0.2 - 1.2 mg/dL [facility] [place] [employer] Alkaline Phosphatase 87 35 - 144 U/L [facility] [place] [employer] AST 25 10 - 35 U/L [facility] ALT 22 9 - 46 U/L [facility] [place] [employer] Blood Venous blood specimen / Unknown 06/01/2022 3:34 PM EDT 06/01/2022 3:35 PM EDT Narrative [facility] - 06/02/2022 3:28 AM EDT FASTING:NO FASTING: NO us Jenni Santiago MD LAB BLOOD ORDERABLES Final Result [facility] [address], [place] [address] [facility] [address] [place] [address] documented in this encounter Visit Diagnoses Diagnosis Essential hypertension- Primary Unspecified essential hypertension Depressive disorder Depressive disorder, not elsewhere classified Other obesity documented in this encounter Additional Health Concerns Assessment Noted Time PHQ-9 Depression Total Score: 9 03/03/19 23 2:43 PM EST documented as of this encounter Care Teams Web Marketing Specialist Relationship Specialty Start Date End Date Jenni Santiago MD [address] [place] [address] PCP - General Internal Medicine 02/05/18 documented as of this encounter
--- OUTSIDE RECORDS SUMMARY | 2024-11-05 13:08 | XMS_ITS | Encounter Summary ---
Author Organization [employer] Address 75 [facility] 7t [place] [address] Care Team Providers Care Heavy Equipment Service Manager Name Role Phone Jenni Santiago MD Primary Care Provider +1- [phone] Encounter Details Date Type Department Care Team (Late st Contact Info) Description 06/18/2023 Orders Only [facility] CHC MED & PEDS [address] [place], [place] [phone] Jenni Santiago MD [address] [place] [address] History of arthroplasty of right knee (Primary [...] 3:00 PM EST Office Visit [facility] ADULT DENTAL [address] [place] [address] Wilfredo Santiago documented as of this encounter Visit Diagnoses Diagnosis History of arthroplasty of right knee- Primary documented in this encounter Additional Health Concerns Assessment Noted Time PHQ-9 Depression Total Score: 9 03/03/19 23 2:43 PM EST documented as of this encounter Care Teams Heavy Equipment Service Manager Relationship Specialty Start Date End Date Jenni Santiago MD [address] [place] [address] PCP - General Internal Medicine 02/05/18 documented as of this encounter
--- OUTSIDE RECORDS SUMMARY | 2024-11-05 13:08 | XMS_ITS | Encounter Summary ---
Author Organization [employer] Address 75 [facility] 7t [place] [address] Care Team Providers Care Soda Dry House Operator Name Role Phone Jenni Santiago MD Primary Care Provider +1- [phone] Reason for Visit * Reason Onset Date Comments Medication Question 10/23/2024 Encounter Details Date Type Department Care Team (Late st Contact Info) Description 10/23/2024 Telephone [facility] MEDICINE [address] [place] [address] Jenni Santiago MD [address] [place] [address] Medication Question Social History Tobacco Use Types [...] [facility] [address] [place] [address] Wilfredo Santiago documented as of this encounter Visit Diagnoses Not on filedocumented in this encounter Additional Health Concerns Assessment Noted Time PHQ-9 Depression Total Score: 15 025 10:01 AM EST documented as of this encounter Care Teams Soda Dry House Operator Relationship Specialty Start Date End Date Jenni Santiago MD [address] [place] [address] PCP - General Internal Medicine 02/05/18 documented as of this encounter
--- OUTSIDE RECORDS SUMMARY | 2024-11-05 13:08 | XMS_ITS | Clinical Summary ---
Author Organization [employer] Address [address] [facility] [address] [place] [address] Care Team Providers Care Marine Plumber Name Role Phone Jenni Santiago MD Primary [...] complication, with long-term current use of insulin ([facility]) Chew 4 tablets (16 g) [...] :Cerebrovascular accident (CVA) due to other mechanism ([facility]) Take 1 tablet (81 mg) by mouth Once per day. 30 tablet 11 4 01/29/20 25 Active famotidine (Pepcid) 20 MG tabletIndications :Type 2 diabetes mellitus without complication, with long-term current use of insulin ([facility]),Gastroesoph ageal reflux disease with esophagitis without hemorrhage TAKE [...] 06/05/2022 Viral hepatitis C 08/23/2021 Cerebrovascular accident (CMS/HCC) 05/14/2013 Disorder of nasal sinus 05/14/2013 Heart disease 05/14/2013 Diabetes mellitus type 2, uncomplicated 09/04/19 12 Benign prostatic hyperplasia without urinary obs truction 08/11/2011 Chronic gingivitis 04/28/2011 Essential hypertension 01/24/2011 Gastroesophageal reflux disease 01/24/2011 Depressive disorder 09/21/2010 Encounters Date Type Department Care Team Description 10/23/2024 Orders Only [facility] External Provider, [facility] 10/23/2024 Telephone [facility] MED[facility] [address] [place] [phone] Jenni Santiago MD Medication Question 10/21/2024 1:30 PM EDT Office Visit [facility] MED & PEDS [address] [place] [address] Jenni Santiago MD Type 2 diabetes mellitus without complication, with long-term current use of insulin ([facility]/HCC) (Primary Dx); History of smoking 25-50 pack years; Screening for colon cancer; Hepatitis C virus infection without hepatic coma, unspecified chronicity; Cerebrovascular accident (CVA) due to other mechanism (CMS/HCC); Essential hypertension 10/21/2024 Travel 10/20/2024 Telephone [facility] [address] [place] [address] Jenni Santiago MD Chart Prep 09/18/2024 Refill [facility] [address] [place] [address] Jenni Santiago MD 09/10/2024 Orders Only [employer] [address] [place] [address] ProviderHai MD 08/28/2024 3:00 PM EDT Office Visit [facility] ADULT DENTAL [address] [place] [address] Wilfredo Santiago Dental calculus (Primary Dx) from Last 3 Months Immunizations Immunization Administration [...] 3:00 PM EST Office Visit [facility] ADULT DENTAL [address] [place] [address] Wilfredo Santiago Health Maintenance Due Date Last Done Comments CT Colonography 1950 Colonoscopy 1950 Colorectal Cancer Screening 1950 FIT DNA/Cologuard 1950 FIT 1950 FOBT 1950 Sigmoidoscopy 1950 Hepatitis A Vaccines (1 of 2 - [...] Screening 03/10/2025 03/10/2024 Dental X-Ray: Bitewings 03/15/2025 03/14/19 25, 09/11/2022, 11/03/2021, Additional history exists Tobacco Screening 08/28/2025 08/28/2024 Eye Exam 10/07/2025 Diabetes: Foot Exam 10/21/2025 10/21/2024 Dental X-Ray: [...] Priority Date/Time Associated Diagnosis Comments XR CHEST 2 VIEWS Routine 10/23/2024 3:56 PM EDT POCT GLUCOSE Routine 10/21/2024 2:00 PM EDT Type 2 diabetes mellitus without complication, with long-term current use of insulin ([facility]) POCT GLYCATED HEMOGLOBIN, TOTAL Routine 10/21/2024 1:59 PM EDT Type 2 diabetes mellitus without complication, with long-term current use of insulin (CMS/HCC) VASC US CAROTID ARTERY DUPLEX BILATERAL Routine [...] with long-term current use of insulin (CMS/HCC) LIPID PANEL, STANDARD Routine 08/20/2023 12:24 PM EDT Type 2 diabetes mellitus without complication, with long-term current use of insulin (CMS/[facility]) Mixed hyperlipidemia from Last 3 Months or Most Recently Relevant to Health Maintenance Results * XR Chest 2 Views (10/23/2024 3:56 PM EDT) Anatomical Region Laterality Modality Chest Radiographic Steffanie ging 10/23/2024 3:56 PM EDT Narrative 10/23/2024 4:17 PM EDT [address] [address] XRay Report Signed Patient: Josh Taylor MR#: [id number] : 1950 Acct:[id number] Age/Sex: 74 / M ADM Date: 10/23/24 Loc: HO.XRAY Attending Dr: Jenni Santiago MD Ordering Physician: Cee Adams MD Date of Service: 10/23/24 Procedure(s): XR chest 2V Accession Number(s): [id number] cc: Cee Adams MD; Jenni Santiago MD Reason for Exam: R06.09 - Other forms of dyspnea EXAMINATION: XR CHEST CLINICAL INFORMATION: R06.09 - Other forms of dyspnea COMPARISON: None available. TECHNIQUE: 2 views of the chest were obtained. FINDINGS: The cardiac, hilar, and mediastinal contours are normal. The lungs are mildly hyperaerated, however clear bilaterally. There is no pneumothorax or pleural effusion. There is no focal osseous or soft tissue abnormality. There are degenerative changes of the shoulder joints and spine. XR/XR chest 2V IMPRESSION: No active pulmonary disease. Electronically signed by: Nam Wren MD 10/23/2024 04:14 PM EDT RP Dictated By: Nam Wren MD Signed By: <Electronically signed by Nam Wren MD in OV> 10/23/24 1614 DD/ 1556 TD/TT: 10/23/24 1557 Local Sales Associate: Procedure Note Donotuseinterpreter, Image - 10/23/2024 [place] [address] XRay Report Signed Patient: Armani Taylor#: [id number] : 1950Acct:[id number] Age/Sex: 74 / MADM Date: 10/23/24 Loc: HO.JATINDER Attending Dr: Jenni Santiago MD Ordering Physician: Cee Adams MD Date of Service: 10/23/24 Procedure(s): XR chest 2V Accession Number(s): [id number] cc: Cee Adams MD; Jenni Santiago MD Reason for Exam: R06.09 - Other forms of dyspnea EXAMINATION: XR CHEST CLINICAL INFORMATION: R06.09 - Other forms of dyspnea COMPARISON: None available. TECHNIQUE: 2 views of the chest were obtained. FINDINGS: The cardiac, hilar, and mediastinal contours are normal. The lungs are mildly hyperaerated, however clear bilaterally. There is no pneumothorax or pleural effusion. There is no focal osseous or soft tissue abnormality. There are degenerative changes of the shoulder joints and spine. XR/XR chest 2V IMPRESSION: No active pulmonary disease. Electronically signed by: Nam Wren MD 10/23/2024 04:14 PM EDT RP Dictated By: Nam Wren MD Signed By: <Electronically signed by Nam Wren MD in OV> 10/23/24 1614 DD/ 1556 TD/TT: 10/23/24 1557 Local Sales Associate: [facility] External Provider IMG XR PROCEDURES Final Result * POCT Glucose (10/21/2024 2:00 PM EDT) Glucose Blood, POC 150 60 - 200 mg/dL QC Media Lot # [id number] Lot# Expiration Date Comment:random Blood Capillary blood specimen / Unknown 10/21/2024 2:00 PM EDT Jenni Santiago MD POINT OF CARE TEST ENTER/ED IT ORDERABLES Final Result * (ABNORMAL) POCT Hgb A1c (10/21/2024 1:59 PM EDT) Pathologist [facility] Hemoglobin A1C 7.7(A) 4.0 - 5.7 % [...] 1:00 PM EDT) Creatinine, Urine 135.32 mg/dL [facility] Microalbumin Urine 24.0 mg/L [facility] Microalbum Creatinine Ratio Ur 17.7 <30 ug/mg cr [facility] Comment:Albumin/Creatinine R atio Reference Ranges: Normal: < 30 ug/mg creatinine Microalbuminuria: 30 - 300 ug/mg creatinineClinical Albuminuria: > 300 ug/mg creatinine Urine (Urine, Random) 11/01/2023 1:00 PM EDT 11/01/2023 2:10 PM EDT Jenni Santiago MD LAB URINE ORDERABLES Final Result Performing Organization Address [facility]/ZIP Co de Phone Number [facility] [address] [place] [phone] * (ABNORMAL) Lipid Panel, Standard (08/20/2023 12:24 PM EDT) Triglycerides 158(H) <150 mg/dL [facility] Comment:Desirable Triglyceri de: less than 150 mg/dLBorderline High Triglyceride 150-199 mg/dLHigh Triglyceride: 200-499 mg/dLVery High Triglyceride: greater than or equal to 5OO mg/dL Cholesterol 130 <200 mg/dL [facility] Comment:Desirable Cholestero l: less than 200 mg/dLBorderline High Cholesterol: 200-239 mg/dLHigh Cholesterol: greater than 239 mg/dL LDL Cholesterol Calculated 60 <100 mg/dL [facility] Comment:Desirable LDL: less than 100 mg/dLNear Optimal/Above Optimal LDL: 110- 129 mg/dLBorderline High LDL: 130-159 mg/dLHigh LDL: 160-189 mg/dLVery High LDL: greater than or equal to 190 mg/dL HDL Cholesterol 39(L) >40 mg/dL [facility] Comment:Desirable HDL: great er than 40 mg/dL Note: This HDL assay may give artificially low results in patients with liver disease. Blood Venous blood specimen / Unknown 08/20/2023 12:24 PM EDT 08/20/2023 2:23 PM EDT us Jenni Santiago MD LAB BLOOD ORDERABLES Final Result Performing Organization Address [facility]/ZIP Co de Phone Number [facility] [address] [place] [phone] from Last 3 Months or Most Recently Relevant to Health Maintenance Insurance [place] [address] [place] [phone] [facility] STANDARD DENTAL-[facility] MEDICAID STAND ADULT Care Teams Marine Plumber Relationship Specialty Start Date End Date Jenni Santiago MD [address] [place] [address] PCP - General Internal Medicine 02/05/18
--- OUTSIDE RECORDS SUMMARY | 2024-11-05 13:08 | XMS_ITS | Data Portability ---
Author Organization [place] [facility], Allergy Address [address] [address] Care Team Providers Care Javascript Web Developer Name Role Phone DAMIRHAMPAUL Primary Care Provider [phone] Assessment Encounter Date Assessment Date Assessment LastModified by Organization Details LastModified Time 03/03/2024 03/03/2024 Patient has a right neck mass that I recommend we obtain tissue sampling. Given its location I would like to have ultrasound-guided needle aspiration biopsy performed at a nearby radiology center. My office will assist in arranging for this procedure. We reviewed the potential risks not limited to bleeding, numbness, swelling and facial weakness. We discussed the potential diagnoses including malignancy, benign process, insufficient specimen or non-diagnostic. Typically pathology results will become available within the next two weeks. We may review results and develop a treatment plan with a telehealth. the drool and articulation changes are likely from the CVA and not the neck mass. His facial nerve and tongue appear normal movement [email or web address] Not available 03/03/2024 11:08:54 04/08/2024 04/08/2024 Ultrasound-guide d needle aspiration biopsy right periparotid lesion found no malignant material. I am not able to palpate it on my examination. At this time no further recommendations for repeat sampling. Could consider repeat imaging in 6 months [email or web address] Not available 04/08/2024 16:05:15 Plan of Treatment Reminders Order Date Submit Date Provider Last Modified By Organization Details Last Modified Time Details Appointments None recorded. Lab None recorded. Referral None recorded. Procedures fine needle aspiratio n; with imaging guidance (PROC) - US Guided FNA, r/o malignanc y, [facility] [address], [place], [address], 5 09:50:20 Surgeries None recorded. Imaging None recorded. Medication Orders None recorded. Patient TargetsNo targets recorded. Patient InstructionsNo instructions recorded. Reason for Referral None Reported. Results Created Date Observation Date Name Description Value Unit Range Abnormal Flag Note LastModifiedBy Organization Detail LastModifiedTime 02/10/1901/19/2024 CT, angio gram, neck, w/ contr ast No observ ation record ed. [facility] [address], [place], [address], 02/11/2024 15:39:24 Result Notes None recorded. 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 Procedures Surgical History Date Name Laterality Status Provider Name and Address Organization Details Recorded Time 04/08/2024 Telehealth completed JONH SANDRA MD [address] [place] [address], [phone], [place] [facility] 04/08/2024 16:10:55 Imaging Results None recorded. Procedure Notes None recorded. Medical Equipment None Reported. Medications Name Sig Start Date Stop Date Status Note LastModified by Organization Details LastModified Time medbox status USE DIRECTED active Not Available Not Available No t Available pulse oximet airial [id number] USE EVERY 4 HOURS. call office IF oxygen below 90 active Not Available Not Available No t Available amoxicillin 500 mg capsule TAKE 4 CAPSULES BY MOUTH 1 HOUR BEFORE DENTAL APPOINTMENT active Not Available Not Available Not Available atorvastatin 40 mg tablet TAKE ONE TABLET EVERY NIGHT AT BEDTIME active Not Available Not Available N ot Available gabapentin 600 mg tablet TAKE ONE TABLET TWICE DAILY IN THE MORNING AND AT BEDTIME NEEDED active Not Available Not Available No t Available cetirizine 10 mg tablet TAKE ONE TABLET EVERY MORNING active Not Available Not Available No t Available azithromycin 250 mg tablet TAKE 2 TABLETS BY MOUTH ON DAY 1, THEN TAKE 1 TABLET DAILY ON DAYS 2-5 active Not Available Not Available No t Available prednisone 20 mg tablet TAKE TWO TABLETS EVERY MORNING FOR FIVE DAYS active Not Available Not Available No t Available venlafaxine ER 150 mg capsule,exte nded release 24 hr TAKE ONE CAPSULE EVERY MORNING active Not Available Not Available No t Available clopidogrel 75 mg tablet TAKE ONE TABLET EVERY MORNING active Not Available Not Available No t Available amlodipine 5 mg tablet TAKE ONE TABLET EVERY MORNING active Not Available Not Available No t Available sulfamethoxa zole 800 mg-trimethop rim 160 mg tablet TAKE ONE TABLET TWICE DAILY FOR 7 DAYS active Not Available Not Available N ot Available aspirin 81 mg tablet,delay ed release TAKE ONE TABLET EVERY MORNING active Not Available Not Available No t Available acetaminophe n 500 mg tablet TAKE ONE TABLET EVERY 6 HOURS NEEDED FOR PAIN active Not Available Not Available No t Available famotidine 20 mg tablet TAKE ONE TABLET IN THE MORNING AND EVENING active Not Available Not Available Not Available amitriptylin e 10 mg tablet TAKE ONE TABLET EVERY NIGHT AT BEDTIME active Not Available Not Available N ot Available cephalexin 500 mg capsule TAKE 1 CAPSULE BY MOUTH TWICE A DAY FOR 10 DAYS active Not Available Not Available No t Available omeprazole 20 mg capsule,kenya yed release TAKE ONE CAPSULE EVERY MORNING active Not Available Not Available No t Available insulin lispro (U-100) 100 unit/mL subcutaneous solution USE 100 UNITS DAILY via pump active Not Available Not Available No t Available doxycycline hyclate 100 mg tablet TAKE 1 TABLET TWICE DAILY WITH WATER UNTIL FINISHED. DO NOT LIE DOWN FOR 30 MINUTES AFTER active Not Available Not Available No t Available finasteride 5 mg tablet TAKE ONE TABLET EVERY NIGHT AT BEDTIME active Not Available Not Available N ot Available diazepam 5 mg tablet TAKE ONE TABLET BY MOUTH AT BEDTIME NEEDED active Not Available Not Available No t Available Ventolin HFA 90 mcg/actuatio n aerosol inhaler INHALE TWO PUFFS EVERY 4 HOURS NEEDED FOR WHEEZING active Not Available Not Available No t Available ezetimibe 10 mg tablet TAKE ONE TABLET EVERY NIGHT AT BEDTIME active Not Available Not Available N ot Available escitalopram 5 mg tablet TAKE ONE TABLET EVERY MORNING active Not Available Not Available No t Available losartan 100 mg-hydrochlo rothiazide 12.5 mg tablet TAKE ONE TABLET EVERY MORNING active Not Available Not Available No t Available cholecalcife rol (vitamin D3) 50 mcg (2,000 unit) capsule TAKE ONE CAPSULE EVERY MORNING active Not Available Not Available No t Available Mucus Relief ER 600 mg tablet, extended release TAKE TWO TABLETS TWICE DAILY. DO NOT BREAK, CRUSH, DISSOLVE OR CHEW active Not Available Not Available No t Available Eliquis 2.5 mg tablet TAKE ONE TABLET IN THE MORNING AND EVENING active Not Available Not Available Not Available Accu-Chek Guide test strips TEST BLOOD SUGAR 5-6 TIMES DAILY active Not Available Not Available Not Available Paxlovid 300 mg (150 mg x 2)-100 mg tablets in a dose pack TAKE 2 TABLETS (300 MG) OF NIRMATRELVI R & 1 TABLET (100 MG) OF RITONAVIR BY MOUTH TWICE DAILY FOR 5 DAYS active Not Available Not Available N ot Available Vitals Date Recorded Body height Body mass index (BMI) Body weight Provider Name and Address Organization Details Last Updated DateTime 03/03/2024 175.26 cm 28.9 kg/m2 49027.1 g Roverto Lama [place] [facility] 03/03/2024 10:55:07 Social History None recorded. Functional Status None recorded. Mental Status None recorded. Family History Nothing Reported. Medical History No medical history recorded. Past Encounters Encounter ID Performer Location Encounter Start Date Encounter Closed Date Diagnosis/Indication Diagnosis SNOMED-CT Code Diagnosis ICD10 Code Diagnosis IMO Codes Diagnosis Note [id number] JONH SANDRA MD [facility] [address] [address] 03/03/2024 09:39:10 03/03/2024 11:09:12 Neoplasm of parotid gland 641646934 D49.0 R59.0 right periparoti d 24mm nodule noted on US, not palpable on exam [id number] JONH SANDRA MD [facility] [address] [facility] [place] [address] 04/08/2024 16:06:51 04/08/2024 16:11:26 Neoplasm of parotid gland 645756683 D49.0 R59.0 right periparoti d 24mm nodule noted on US, not palpable on exam Health Concerns Section Related Observation LastModified by Organization Detai ls LastModified Time None Recorded Concern Status LastModified by Organization Details LastModified Time None Recorded Advance Directives Directive None Recorded Payers Insurance Date Sequence Insurance Name Policy Number Policy Daley Covered Member ID Daley Member ID Guarantor Name 04/05/2024 1 [place] [email or web address] Josh T Claudia [id number] Josh Taylor 04/05/2024 2 [place] [facility] Josh Taylor [id number] Josh Taylor Notes Date Note Type Note Provider Name and Address Organization Details Recorded Time 03/03/2024 text/html ROS as noted in the HPI Right neck ulisesnenurys was able to feel a mass with his hands 01/20/2024 ultrasound neck BMCRight parotid 8 mm lymph node. Right level 2 neck abutting parotid are 3 focal lesions, 7 mm x 4 mm consistent with lymph node.12 mm x 6 mm consistent with lymph node24 mm x 16 mm x 10 mm with absent fatty hilum concerning for abnormal lymph node or parotid lesion.01/19/2024 CTA neck at [facility] is missing second page. 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 Right level 2 neck abutting parotid are 3 focal lesions, 7 mm x 4 mm consistent with lymph node.12 mm x 6 mm consistent with lymph node24 mm x 16 mm x 10 mm with absent fatty hilum concerning for abnormal lymph node or parotid lesion.01/19/2024 CTA neck at [facility] is missing second page. 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
--- OUTSIDE RECORDS SUMMARY | 2024-11-05 13:08 | XMS_ITS | Encounter Summary ---
Author Organization [employer] Address [address] [facility] 7[address] [place] [address] Care Team Providers Care Conference Planning Manager Name Role Phone Jenni Santiago MD Primary Care Provider [phone] Reason for Visit * Reason Onset Date Comments callback requested 01/15/2024 Encounter Details Date Type Department Care Team ([facility] st Contact Info) Description 01/15/2024 Telephone [facility] [address] [place] [address] Jenni Santiago MD [address] [place] [address] callback requested Social History Tobacco Use Types [...] know why are they calling him. Callback [phone] documented in this encounter Plan of Treatment Upcoming Encounters Date Type Department Care Team (Late st Contact Info) Description 03/02/2025 3:00 PM EST Office Visit [facility] ADULT DENTAL [address] [place] [address] Wilfredo Santiago documented as of this encounter Visit Diagnoses Not on filedocumented in this encounter Additional Health Concerns Assessment Noted Time PHQ-9 Depression Total Score: 9 03/03/19 2:43 PM EST documented as of this encounter Care Teams Conference Planning Manager Relationship Specialty Start Date End Date Jenni Santiago MD [address] [place] [address] PCP - General Internal Medicine 02/05/18 documented as of this encounter
[2024-11-05 14:33] LABS: Alanine Aminotransferase 20 U/L (0-40); Albumin Level 4.1 g/dL (3.5-5.0); Alkaline Phosphatase 108 U/L (39-117); Anion Gap 13 (12-20); Aspartate Amino Transferase 54 U/L (5-37); Blood Urea Nitrogen 23 mg/dL (9-16); Calcium 9.6 mg/dL (8.4-10.2); Carbon Dioxide 30 mmol/L (22-29); Chloride 102 mmol/L (96-108); Cholesterol 89 mg/dL (<200); Estimated Glomerular Filt Rate > 60; HDL Cholesterol 36 mg/dL (>40); Magnesium 2.2 mg/dL (1.6-2.6); Potassium 4.8 mmol/L (3.3-5.1); Sodium 140 mmol/L (135-145); Total Protein 6.9 g/dL (6.5-8.0); Triglycerides 54 mg/dL (<150)
[2024-11-05 15:05] LABS: Folate 9.3 ng/mL (> or = 4.0); Vitamin B12 321 pg/mL (200-900)
== END 2024-11-05 11:33 | disposition home or self-care (01) ==
LOC: HO.CHCLDS 11:32
PROVIDERS: Visit Provider Internal Medicine
DX: Z13.21 Encounter for screening for nutritional disorder (principal); E11.9 Type 2 diabetes mellitus without complications; Z79.4 Long term (current) use of insulin
CPT/HCPCS: 36415; 80053; 80061; 82306; 82607; 82746; 83735

== ENCOUNTER 2025-01-23 13:17 | Outpatient (REF) | payer MEDICARE, MEDICAID, SELFPAY ==
--- NOTE | ~2025-01-23 | US_ITS ---
EXAMINATION: US ABDOMEN COMPLETE WITH LIVER ELASTOGRAPHY HISTORY: Viral hepatitis C without hepatic coma TECHNIQUE: Real-time grayscale ultrasound imaging of the abdomen was performed and images were reviewed. COMPARISON: Comparison is made with the prior examination dated 01/11/2021. FINDINGS: Liver: The right lobe of the liver measures 16.1 cm in size. The left lobe of the liver measures 8.0 cm in size. The liver demonstrates normal homogeneous echotexture. No focal mass or intrahepatic biliary ductal dilatation is identified. There is normal hepatopedal flow in the portal vein. Ultrasound elastography of the liver was performed with 10 separate measurements of the liver parenchyma with the patient in the supine position. Measurements were obtained approximately 2 cm below Greg's capsule and perpendicular to the capsule. The median shear wave velocity is 1.64 m/s (previously 1.25 mm/s). The interquartile range/median (IQR/median) is 0.11. Gallbladder and biliary tree: The gallbladder is unremarkable, without evidence of calculi, wall thickening, or pericholecystic fluid. There is no sonographic Luis sign. The common bile duct is normal in caliber measuring 3 mm in diameter. Kidneys: The right kidney measures 12.0 cm in length. The left kidney measures 11.1 cm in length. The kidneys are unremarkable, without evidence of masses, hydronephrosis, or calculi. Pancreas: The pancreatic head, neck, and body are unremarkable. The pancreatic tail is obscured by bowel gas. Spleen: The spleen is normal in size and contour, measuring 9.0 cm in length. Abdominal aorta and inferior vena cava: The visualized portions of the abdominal aorta and inferior vena cava are normal in caliber. There is no free fluid in the abdomen. US/US abdomen comp w elastography IMPRESSION: Unremarkable abdominal ultrasound. The median shear wave velocity in the liver is 1.64 m/s, corresponding to a median liver stiffness of 8.42 kPa. The IQR/median value is 0.11. This is indicative of a quality data set. Findings are indicative of a low elastography value which rules out advanced chronic liver disease in asymptomatic patients. REFERENCE: Society of Radiologists in Ultrasound Liver Stiffness Thresholds (2020): LIVER STIFFNESS THRESHOLDS: *Shear wave velocity less than 1.3 m/s (Liver Stiffness equal or less than 5 kPa): High probability of being normal. *Shear wave velocity less than 1.7 m/s (Liver Stiffness less than 9 kPa): In the absence of other known clinical signs, rules out compensated advanced chronic liver disease. *Shear wave velocity between 1.7-2.1 m/s (Liver Stiffness 9-13 kPa): Suggestive of compensated advanced chronic liver disease but need further test for confirmation. *Shear wave velocity between 2.1-2.4 m/s (Liver Stiffness 13-17 kPa): Rules in compensated advanced chronic liver disease. *Shear wave velocity greater than 2.4 m/s (Liver Stiffness over 17 kPa): Suggestive of clinically significant portal hypertension. QUALITY OF DATA SET: *IQR/Median value equal or less than 0.15 implies a quality data set. *IQR/Median value over 0.15 implies a poor quality data set. SIGNIFICANT CHANGE FROM PRIOR EXAM: Significant change if liver stiffness measurement is 10% or greater from prior exam. OTHER CONSIDERATIONS: The stage of liver fibrosis may be overestimated in the setting of acute hepatitis, liver inflammation, elevated liver function tests, hepatic vascular congestion, obstructive cholestasis, non-fasting state, and infiltrative diseases such as amyloidosis and lymphoma. In some patients with NAFLD, the liver stiffness thresholds for compensated advanced chronic liver disease may be lower. In causes other than viral hepatitis and NAFLD, liver stiffness thresholds are not well established. Electronically signed by: Steve Herrera MD 01/23/2025 03:23 PM [facility]
--- OUTSIDE RECORDS SUMMARY | 2025-01-23 15:04 | XMS_ITS | Encounter Summary ---
Author Organization [facility] Address [address] [facility] 7[address] [place] [address] Care Team Providers Care Pantograph Machine Set Up Operator Name Role Phone Jenni Santiago MD Primary Care Provider [phone] Encounter Details Date Type Department Care Team (Latest Contact Info) Description 12/23/2019 Abstract [facility] CONVERSIONS Dental, Provider, DDS Social History Tobacco [...] Team (Late st Contact Info) Description 03/02/2025 1:30 PM EST Office Visit [facility] ADULT D[facility] [address] [place] [address] Wilfredo Santiago documented as of this encounter Visit Diagnoses Not on filedocumented in this encounter Care Teams Pantograph Machine Set Up Operator Relationship Specialty Start Date End Date Jenni Santiago MD [address] [place] [address] PCP - General Internal Medicine 02/05/18 documented as of this encounter
--- OUTSIDE RECORDS SUMMARY | 2025-01-23 15:04 | XMS_ITS | Encounter Summary ---
Author Organization [employer] Address [address] [facility] 7t [place] [address] Care Team Providers Care Color Strainer Name Role Phone Jenni Santiago MD Primary Care Provider +1- [phone] Reason for Visit * Reason Onset Date Comments Nurse Triage 03/06/2024 Encounter Details Date Type Department Care Team ([facility] st Contact Info) Description 03/06/2024 Telephone [facility] CHC MED & PEDS [address] [place] [address] Jenni Santiago MD [address] [place] [address] Nurse Triage Social History Tobacco Use Types [...] PM EST Date: 03/05/24 Urgent Care : [facility] Urgent [facility] Seen for: had a fall and has 6 stitches Symptomatic Yes , inform eyebrow area continues to bleed. Called pt. He states he tripped last night 03/05/24 and hit head on computer chair. No loss of consciousness but did get laceration. Went to Urgent care in [facility] and got 6 stitches in head. [...] to appt. Advised to be seen in [facility] walk in but pt. Declines and wants televisit to speak to [facility] provider for order. Pt. Denies any headache, dizziness, nausea or double vision. Urgent care note not in chart. Pt. Seen at [facility] Phone number is [phone]. Please call Urgent care and have Pt.Note scanned into chart for televisit with Dr. Floyd for 03/07/24. Protocol Used: Head Injury (Adult) Protocol-Based Disposition: Go to ED/C Now (or to Office with PCP Approval)- Pt. Went to [facility] Urgent Care in [place], [place] last night. Positive Triage Question: * [...] on : Date: 03/05/24 Urgent Care : [facility] [place] Seen for: had a fall and has [...] Description 03/02/2025 1:30 PM EST Office Visit [facility] ADULT DENTAL [address] [place] [address] Wilfredo Santiago documented as of this encounter Visit Diagnoses Not on filedocumented in this encounter Additional Health Concerns Assessment Noted Time PHQ-9 Depression Total Score: 9 03/03/19 23 2:43 PM EST documented as of this encounter Care Teams Color Strainer Relationship Specialty Start Date End Date Jenni Santiago MD [address] [place] [address] PCP - General Internal Medicine 02/05/18 documented as of this encounter
--- OUTSIDE RECORDS SUMMARY | 2025-01-23 15:04 | XMS_ITS | Encounter Summary ---
Author Organization [employer] Address 75 [facility] 7t [place] [address] Care Team Providers Care Agricultural Inspector Name Role Phone Jenni Santiago MD Primary Care Provider +1- [phone] Reason for Referral * Consultation (Routine) - Closed Specialty Diagnoses / Procedures Referred By Ayde fry Referred To Contact Pulmonary Disease Diagnoses Chest congestion Jenni Santiago MD [address] [place] [address] Phone: tel: fax: Daren Adams [address] [place] [address] Phone: tel: fax: Referral ID Status Reason Start Date Expiration Date V isits Requested Visits Authorized [id number] Closed Specialty Services Required 06/17/2024 06/17/2025 1 1 Encounter Details Date Type Department Care Team ([facility] st Contact Info) Description 06/17/2024 Orders Only [facility] CHC MED & PEDS [address] [place], [place] [phone] Jenni Santiago MD 505 [place] [address] Chest congestion (Primary Dx) Social History Tobacco [...] Description 03/02/2025 1:30 PM EST Office Visit [facility] ADULT DENTAL [address] [place] [address] Wilfredo Santiago Scheduled Referrals Name Type Priority [...] documented as of this encounter Care Teams Agricultural Inspector Relationship Specialty Start Date End Date Jenni Santiago MD [address] [place] [address] PCP - General Internal Medicine 02/05/18 documented as of this encounter
--- OUTSIDE RECORDS SUMMARY | 2025-01-23 15:04 | XMS_ITS | Encounter Summary ---
Author Organization [employer] Address 75 [facility] 7t [place] [address] Care Team Providers Care Light Bulb Assembler Name Role Phone eJnni Santiago MD Primary Care Provider +1- [phone] Reason for Visit * Reason Comments Med Refill Encounter Details Date Type Department Care Team ([facility] st Contact Info) Description 01/17/2025 Refill [facility] MED & PEDS [address] [place] [address] Jenni Santiago MD [address] [place] [address] Social History Tobacco Use Types Packs/Day Years [...] your housing situation today? I have azalia melissa 03/10/[address] you li [...] Description 03/02/2025 1:30 PM EST Office Visit [facility] ADULT DENTAL [address] [place] [address] Wilfredo Santiago documented as of this encounter Visit Diagnoses Not on filedocumented in this encounter Additional Health Concerns Assessment Noted Time PHQ-9 Depression Total Score: 15 025 10:01 AM EST documented as of this encounter Care Teams Light Bulb Assembler Relationship Specialty Start Date End Date Jenni Santiago MD [address] [place] [address] PCP - General Internal Medicine 02/05/18 documented as of this encounter
--- OUTSIDE RECORDS SUMMARY | 2025-01-23 15:04 | XMS_ITS | Encounter Summary ---
Author Organization [employer] Address 75 [facility] 7t [place] [address] Care Team Providers Care Office Services Clerk Name Role Phone Jenni Santiago MD Primary Care Provider +1- [phone] Encounter Details Date Type Department Care Team (Late st Contact Info) Description 04/16/2024 Orders Only [facility] MEDICINE [address] [place] [address] Jenni Santiago MD [address] [place] [address] SOB (shortness of breath) Social History Tobacco [...] Description 03/02/2025 1:30 PM EST Office Visit [facility] ADULT DENTAL 505 [place] [address] Wilfredo Santiago documented as of this encounter Visit Diagnoses Diagnosis SOB (shortness of breath) Shortness of breath documented in this encounter Additional Health Concerns Assessment Noted Time PHQ-9 Depression Total Score: 15 025 10:01 AM EST documented as of this encounter Care Teams Office Services Clerk Relationship Specialty Start Date End Date Jenni Santiago MD [address] [place] [address] PCP - General Internal Medicine 02/05/18 documented as of this encounter
--- OUTSIDE RECORDS SUMMARY | 2025-01-23 15:04 | XMS_ITS | Encounter Summary ---
Author Organization [employer] Address 75 [facility] 7t [place] [address] Care Team Providers Care Rehabilitation Program Manager Name Role Phone Jenni Santiago MD Primary Care Provider +1- [phone] Reason for Visit * Reason Onset Date Comments Referral 01/19/2025 Encounter Details Date Type Department Care Team (Late st Contact Info) Description 01/19/2025 Telephone [facility] MEDICINE [address] [place] [address] Jenni Santiago MD 505 [place] [address] Referral Social History Tobacco Use Types Packs/Day Years [...] Telephone Encounter - Jenni Santiago MD - 01/21/2025 2:07 PM EST FYI. The new referral was generated. * Telephone Encounter - Bowen Perez - 01/19/2025 2:45 PM EST Tc from amanda at [facility] requesting for the renew of the speech therapy referral for pt. since it will be expiring soon. So the pt can continue whit there appointments Contact amanda at [phone] documented in this encounter Plan of Treatment Upcoming Encounters Date Type Department Care Team (Late st Contact Info) Description 03/02/2025 1:30 PM EST Office Visit [facility] CHC ADULT DENTAL [address] [place] [address] Wilfredo Santiago documented as of this encounter Goals Goal Patient Goal Type Associated Problems Recent Progress Patient-Stated? Author Help patients manage their type 2 diabetes Care Plan Help patients manage their type 2 diabetes Bowen Almaguer Weekly blood pressure task Care Plan Weekly blood pressure task No Bowen Ya Help patients manage their type 2 diabetes Care Plan Help patients manage their type 2 diabetes No Bowen Ya Patient has chronic kidney disease Care Plan Patient has chronic kidney disease No Bowen Ya Weekly blood pressure task Care Plan Weekly blood pressure task No Bowen Ya Patient has chronic kidney disease Care Plan Patient has chronic kidney disease No Bowen Ya documented as of this encounter Visit Diagnoses Not on filedocumented in this encounter Additional Health Concerns Active Problems Noted Date Diagnosed Date Help patients manage their type 2 diabetes 01/19 Weekly blood pressure task 01/19/2025 Help patients manage their type 2 diabetes 01/19 Patient has chronic kidney disease 01/19/2025 Weekly blood pressure task 01/19/2025 Patient has chronic kidney disease 01/19/2025 Assessment Noted Time PHQ-9 Depression Total Score: 15 025 10:01 AM EST documented as of this encounter Care Teams Rehabilitation Program Manager Relationship Specialty Start Date End Date Jenni Santiago MD [address] [place] [address] PCP - General Internal Medicine 02/05/18 documented as of this encounter
--- OUTSIDE RECORDS SUMMARY | 2025-01-23 15:04 | XMS_ITS | Encounter Summary ---
Author Organization [employer] Address [address] [facility] [address] [address] Care Team Providers Care Stove Installer Name Role Phone Jenni Santiago MD Primary Care Provider +1- [phone] Reason for Visit * Reason Comments Med Refill Encounter Details Date Type Department Care Team (Late st Contact Info) Description 02/22/2022 Refill [facility] MEDICINE [address] [place] [address] Carlene Dawson MD 505 [place] [address] Essential hypertension Social History Tobacco Use Types [...] 03/02/2025 1:30 PM EST Office Visit [facility] CHC ADULT DENTAL [address] [place] [address] Wilfredo Santiago documented as of this encounter Visit Diagnoses Diagnosis Essential hypertension Unspecified essential hypertension documented in this encounter Care Teams Stove Installer Relationship Specialty Start Date End Date Jenni Santiago MD [address] [place] [address] PCP - General Internal Medicine 02/05/18 documented as of this encounter
--- OUTSIDE RECORDS SUMMARY | 2025-01-23 15:04 | XMS_ITS | Clinical Summary ---
Author Organization [employer] [facility] Address [address] [facility] [address] [place] [address] Phone Care Team Providers Care Waiter/Waitress Take Out Name Role Phone Pcp, Unknown Primary Care [...] file Medical Devices Not on file Insurance [facility] MEDICARE PART A & B [place] [facility] & B [facility] MEDICARE PART A & B Care Teams Waiter/Waitress Take Out Relationship Specialty Start Date End Date Pcp, Unknown PCP - General 03/20/24 Additional Source Comments The information contained in this document represents components of the legal health record. It is not the complete legal health record.[facility]
--- OUTSIDE RECORDS SUMMARY | 2025-01-23 15:04 | XMS_ITS | Encounter Summary ---
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) Jenni Santiago MD [address] [place] [address] Phone: tel: fax: [facility] [address] [place] [address] Phone: tel: fax: Referral ID Status Reason Start Date Expiration Date V isits Requested Visits Authorized [id number] Closed Specialty Services Required 01/21/2025 01/21/2026 1 1 Encounter Details Date Type Department Care Team (Late st Contact Info) Description 01/21/2025 Orders Only [facility] CHC MED & PEDS [address] [place], [place] [phone] Jenni Santiago MD [address] [place], [place] [phone] Cerebrovascular accident (CVA) due to other mechanism (HCC) (Primary Dx) Social History Tobacco Use Types [...] Description 03/02/2025 1:30 PM EST Office Visit [facility] ADULT DENTAL [address] [place] [address] Wilfredo Santiago Scheduled Referrals Name Type Priority Associated Diagnoses Orde r Schedule Referral to Speech Therapy Outpatient Referral Routine Cerebrovascular accident (CVA) due to other mechanism (HCC) Expected: 01/21/2025 (Approximate), Expires: 01/21/2026 documented as of this encounter Goals Goal Patient Goal Type Associated Problems Recent Progress Patient-Stated? Author Help patients manage their type 2 diabetes Care Plan Help patients manage their type 2 diabetes No Bowen Ya Weekly blood pressure task [...] Care Plan Weekly blood pressure task No Florecita Medellin LPN Weekly blood pressure task Care Plan Weekly blood pressure task No Florecita Medellin LPN Patient has chronic kidney disease Care Plan Patient has chronic kidney disease No Florecita Medellin LPN Patient has chronic kidney disease Care Plan Patient has chronic kidney disease No Florecita Medellin LPN Weekly blood pressure task Care Plan Weekly blood pressure task No Jenni Santiago MD Weekly blood pressure task Care Plan Weekly blood pressure task No Jenni Santiago MD Patient has chronic kidney disease Care Plan Patient has chronic kidney disease No Jenni Santiago MD Patient has chronic kidney disease Care Plan Patient has chronic kidney disease No Jenni Santiago MD documented as of this encounter Visit Diagnoses Diagnosis Cerebrovascular accident (CVA) due to other mechanism (HCC)- Primary documented in this encounter Additional Health Concerns Active Problems Noted Date Diagnosed Date Help patients manage their type 2 diabetes 01/19 Weekly blood pressure task 01/19/2025 Help patients manage their type 2 diabetes 01/19 Patient has chronic kidney disease 01/19/2025 Weekly blood pressure task 01/19/2025 Patient has chronic kidney disease 01/19/2025 Weekly blood pressure task 01/21/2025 Weekly blood pressure task 01/21/2025 Patient has chronic kidney disease 01/21/2025 Patient has chronic kidney disease 01/21/2025 Weekly blood pressure task 01/21/2025 Weekly blood pressure task 01/21/2025 Patient has chronic kidney disease 01/21/2025 Patient has chronic kidney disease 01/21/2025 Assessment Noted Time PHQ-9 Depression Total Score: 15 025 10:01 AM EST documented as of this encounter Care Teams Litigation Counsel Relationship Specialty Start Date End Date Jenni Santiago MD [address] [place] [address] PCP - General Internal Medicine 02/05/18 documented as of this encounter
--- OUTSIDE RECORDS SUMMARY | 2025-01-23 15:04 | XMS_ITS | Encounter Summary ---
Author Organization [employer] Address 75 [facility] 7[address] [place] [address] Care Team Providers Care Tuber Machine Operator Helper Name Role Phone Jenni Santiago MD Primary Care Provider Encounter Details Date Type Department Care Team (Late Contact Info) Description 01/05/2022 Abstract [facility] MEDICINE [address] [place] [address] Jenni Santiago MD [address] [place], [place] [phone] Essential hypertension (Primary Dx); Gastroesophageal reflux disease without esophagitis; Depressive disorder; Dry skin; Type 2 diabetes mellitus without complication, with long-term current use of insulin ([facility]) Social History Tobacco Use Types Packs/Day [...] Care Team (Late Contact Info) Description 03/02/2025 1:30 PM EST Office Visit [facility] CHC ADULT DENTAL [address] [place], [place] [phone] Wilfredo Santiago documented as of this encounter Visit Diagnoses Diagnosis Essential hypertension- Primary Unspecified essential hypertension Gastroesophageal reflux disease without esophagitis Esophageal reflux Depressive disorder Depressive disorder, not elsewhere classified Dry skin Other symptoms involving skin and integumentary tissues Type 2 diabetes mellitus without complication, with long-term current use of insulin (HCC) documented in this encounter Care Teams Tuber Machine Operator Helper Relationship Specialty Start Date End Date Jenni Santiago MD [address] [place] [address] PCP - General Internal Medicine 02/05/18 documented as of this encounter
--- OUTSIDE RECORDS SUMMARY | 2025-01-23 15:04 | XMS_ITS | Encounter Summary ---
Author Organization [employer] Address 75 [facility] 7t [place] [address] Care Team Providers Care Cadastral Surveyor Name Role Phone Jenni Santiago MD Primary Care Provider +1- [phone] Reason for Visit * Reason Onset Date Comments Medication Question 10/23/2024 Encounter Details Date Type Department Care Team (Late st Contact Info) Description 10/23/2024 Telephone [facility] [address] [place] [address] Jenni Santiago MD [address] [place] [address] Medication Question Social History Tobacco Use Types [...] Description 03/02/2025 1:30 PM EST Office Visit [facility] ADULT DENTAL [address] [place] [address] Wilfredo Santiago documented as of this encounter Visit Diagnoses Not on filedocumented in this encounter Additional Health Concerns Assessment Noted Time PHQ-9 Depression Total Score: 15 025 10:01 AM EST documented as of this encounter Care Teams Cadastral Surveyor Relationship Specialty Start Date End Date Jenni Santiago MD [address] [place] [address] PCP - General Internal Medicine 02/05/18 documented as of this encounter
--- OUTSIDE RECORDS SUMMARY | 2025-01-23 15:04 | XMS_ITS | Encounter Summary ---
Author Organization [employer] [facility] Address [address] [facility] 7t [place] [address] Care Team Providers Care Network Systems Analyst Name Role Phone Jenni Santiago MD Primary Care Provider +1- [phone] Encounter Details Date Type Department Care Team (Latest Contact Info) Description 06/06/2018 Abstract [facility] CONVERSIONS Dental, Provider, DDS Social [...] Description 03/02/2025 1:30 PM EST Office Visit [facility] ADULT DENTAL [address] [place] [address] Wilfredo Santiago documented as of this encounter Visit Diagnoses Not on filedocumented in this encounter Care Teams Network Systems Analyst Relationship Specialty Start Date End Date Jenni Santiago MD [address] [place] [address] PCP - General Internal Medicine 02/05/18 documented as of this encounter
--- OUTSIDE RECORDS SUMMARY | 2025-01-23 15:04 | XMS_ITS | Encounter Summary ---
Author Organization [employer] Address [address] [facility] 7t [place] [address] Care Team Providers Care Model And Pattern Supervisor Name Role Phone Jenni Santiago MD Primary Care Provider +1- [phone] Reason for Visit * Reason Comments Med Refill Encounter Details Date Type Department Care Team ([facility] st Contact Info) Description 01/21/2025 Refill [facility] MED & PEDS [address] [place] [address] Jenni Santiago MD [address] [place] [address] Drooling Social History Tobacco Use Types Packs/Day Years [...] Description 03/02/2025 1:30 PM EST Office Visit [facility] ADULT DENTAL [address] [place] [address] Wilfredo Santiago documented as of this encounter [...] as of this encounter Visit Diagnoses Diagnosis Drooling Other facial nerve disorders documented in this encounter Additional Health Concerns [...] documented as of this encounter Care Teams Model And Pattern Supervisor Relationship Specialty Start Date End Date Jenni Santiago MD [address] [place] [address] PCP - General Internal Medicine 02/05/18 documented as of this encounter
--- OUTSIDE RECORDS SUMMARY | 2025-01-23 15:04 | XMS_ITS | Encounter Summary ---
Author Organization [employer] Address 75 [facility] 7t [place] [address] Care Team Providers Care Ship'S Surveyor Name Role Phone Jenni Santiago MD Primary Care Provider +1- [phone] Reason for Visit * Reason Comments Med Refill Encounter Details Date Type Department Care Team ([facility] Contact Info) Description 01/21/2025 Refill [facility] CHC MED & PEDS [address] [place] [address] Jenni Santiago MD [address] [place] [address] Cerebrovascular accident (CVA) due to other mechanism (HCC) Social History Tobacco Use Types Packs/Day Years [...] Encounter - Jenni Santiago MD - 01/21/2025 2:09 PM EST Please schedule a follow up appointment for me w/ Mr Josh T Claudia for chronic medical conditions. documented in this encounter Plan of Treatment Upcoming Encounters Date Type Department Care Team (Late st Contact Info) Description 03/02/2025 1:30 PM EST Office Visit [facility] ADULT DENTAL [address] [place] [address] Wilfredo Santiago documented as of this encounter [...] accident (CVA) due to other mechanism (HCC) documented in this encounter Additional Health Concerns [...] documented as of this encounter Care Teams Ship'S Surveyor Relationship Specialty Start Date End Date Jenni Santiago MD [address] [place] [address] PCP - General Internal Medicine 02/05/18 documented as of this encounter
--- OUTSIDE RECORDS SUMMARY | 2025-01-23 15:05 | XMS_ITS | Patient Health Record ---
Author Organization [facility] Address [address] [place] [address] Care Team Providers Care Ironer Machine Name Role Phone Jenni Santiago M.D. Primary Care Provider Un available Steve Bradley Unavailable [phone] Reason For Referral No Information Plan Of Treatment No Information Insurance Providers Payer Name Payer Address Payer Phone Subscriber Number Group Number Insured Name Patient Relationship to Insured Coverage Start Date Coverage End Date MEDICARE OF [place] [address] [place] [id number] ALISA BENNETT Self - patient is the insured [facility] [employer] [address] [place] [id number] ALISA BENNETT Self - patient is the insured MEDICAID OF [facility] [address] [place] [address] [id number] ALISA BENNETT Self - patient is the insured
--- OUTSIDE RECORDS SUMMARY | 2025-01-23 15:05 | XMS_ITS | Encounter Summary ---
Author Organization [employer] Address [address] [facility] 7t [place] [address] Care Team Providers Care Mri Tech Name Role Phone Jenni Santiago MD Primary Care Provider +1- [phone] Reason for Visit * Reason Onset Date Comments Med Refill 12/27/2022 Encounter Details Date Type Department Care Team ([facility] st Contact Info) Description 12/27/2022 Telephone [facility] MED & PEDS [address] [place] [address] Jenni Santiago MD [address] [place] [address] Med Refill Social History Tobacco Use Types [...] 2.5 MG tablet to be sent to [facility] pharmacy documented in this encounter Plan of Treatment Upcoming Encounters Date Type Department Care Team (Late st Contact Info) Description 03/02/2025 1:30 PM EST Office Visit [facility] ADULT DENTAL [address] [place] [address] Wilfredo Santiago documented as of this encounter Visit Diagnoses Not on filedocumented in this encounter Additional Health Concerns Assessment Noted Time PHQ-9 Depression Total Score: 9 03/03/19 23 2:43 PM EST documented as of this encounter Care Teams Mri Tech Relationship Specialty Start Date End Date Jenni Santiago MD [address] [place] [address] PCP - General Internal Medicine 02/05/18 documented as of this encounter
--- OUTSIDE RECORDS SUMMARY | 2025-01-23 15:05 | XMS_ITS | Encounter Summary ---
Author Organization [employer] Address [address] [facility] 7t [place] [address] Care Team Providers Care Lemon Picker Name Role Phone Jenni Santiago MD Primary Care Provider +1- [phone] Encounter Details Date Type Department Care Team (Late st Contact Info) Description 09/10/2024 Orders Only [facility] [address] [place] [address] Provider, MD Hai Social History Tobacco Use [...] Description 03/02/2025 1:30 PM EST [facility] [address] [place] [address] Wilfredo Santiago documented as of this encounter [...] documented as of this encounter Care Teams Lemon Picker Relationship Specialty Start Date End Date Jenni Santiago MD [address] [place] [address] PCP - General Internal Medicine 02/05/18 documented as of this encounter
--- OUTSIDE RECORDS SUMMARY | 2025-01-23 15:05 | XMS_ITS | Encounter Summary ---
Author Organization [employer] Address [address] [facility] 7t [place] [address] Care Team Providers Care Cisco Unified Communications Engineer Name Role Phone Jenni Santiago MD Primary Care Provider +1- [phone] Reason for Visit * Reason Onset Date Comments Nurse Triage 09/18/2022 Encounter Details Date Type Department Care Team ([facility] st Contact Info) Description 09/18/2022 Telephone [facility] CHC MED & PEDS [address] [place] [address] Jenni Santiago MD [address] [place], [place] [phone] Nurse Triage Social History Tobacco Use Types [...] Triage call Pt reports eating at a [employer] buffet 09/11/22 and having some calamari. Pt [...] . Pt is advised to come to [facility] today, Pt declined and reports will come to [facility] in the morning . Hours given opens [...] accepted this outcome Please contact pt at [phone] documented in this encounter Plan of Treatment Upcoming Encounters Date Type Department Care Team (Late st Contact Info) Description 03/02/2025 1:30 PM EST Office Visit [facility] ADULT D[facility]AL [address] [place] [address] Wilfredo Santiago documented as of this encounter Visit Diagnoses Not on filedocumented in this encounter Additional Health Concerns Assessment Noted Time PHQ-9 Depression Total Score: 9 03/03/19 23 2:43 PM EST documented as of this encounter Care Teams Cisco Unified Communications Engineer Relationship Specialty Start Date End Date Jenni Santiago MD [address] [place] [address] PCP - General Internal Medicine 02/05/18 documented as of this encounter
--- OUTSIDE RECORDS SUMMARY | 2025-01-23 15:05 | XMS_ITS | Encounter Summary ---
Author Organization [employer] Address [address] [facility] 7t [place] [address] Care Team Providers Care Legal Billing Coordinator Name Role Phone Jenni Santiago MD Primary Care Provider +1- [phone] Encounter Details Date Type Department Care Team (Late st Contact Info) Description 11/05/2023 Orders Only [facility] CHC MED & PEDS [address] [place], [place] [phone] Jenni Santiago MD [address] [place] [address] Cellulitis and abscess of trunk; Cellulitis of [...] [facility] [address] [place] [address] Wilfrdeo Santiago documented as of this encounter Visit Diagnoses Diagnosis Cellulitis and abscess of trunk Cellulitis of back except buttock documented in this encounter Additional Health Concerns Assessment Noted Time PHQ-9 Depression Total Score: 9 03/03/19 23 2:43 PM EST documented as of this encounter Care Teams Legal Billing Coordinator Relationship Specialty Start Date End Date Jenni Santiago MD [address] [place] [address] PCP - General Internal Medicine 02/05/18 documented as of this encounter
--- OUTSIDE RECORDS SUMMARY | 2025-01-23 15:05 | XMS_ITS | Encounter Summary ---
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 [address] [place] [address] [place] [address] Phone: tel: fax: Referral ID Status Reason Start Date Expiration Date V isits Requested Visits Authorized [id number] Closed Specialty Services Required 02/01/2024 01/31/2025 1 1 Encounter Details Date Type Department Care Team (Late st Contact Info) Description 02/01/2024 Orders Only [facility] CHC MED & PEDS [address] [place], [place] [phone] Jneni Santiago MD [address] [place], [place] [phone] Cerebrovascular accident (CVA) due to other mechanism [...] Description 03/02/2025 1:30 PM EST Office Visit [facility] ADULT DENTAL [address] [place] [address] Wilfredo Santiago documented as of this encounter [...] documented as of this encounter Care Teams Tariff Supervisor Relationship Specialty Start Date End Date Jenni Santiago MD [address] [place] [phone] PCP - General Internal Medicine 02/05/18 documented as of this encounter
--- OUTSIDE RECORDS SUMMARY | 2025-01-23 15:05 | XMS_ITS | Encounter Summary ---
Author Organization [employer] Address [address] [facility] [address] [place] [address] Care Team Providers Care Telegraph Printer Mechanic Name Role Phone Jenni Santiago MD Primary Care Provider +1- [phone] Reason for Referral * Consultation (Urgent) - Authorized Specialty Diagnoses / Procedures Referred By Ayde fry Referred To Contact Otolaryngology Diagnoses Parotid mass Jenni Santiago MD [address] [place] [address] Phone: tel: fax: [facility] [address] Phone: tel: fax: Referral ID Status Reason Start Date Expiration Date Visits Requested Visits Authorized [id number] Authorized Specialty Services Required 02/08/2024 02/07/2025 1 1 Encounter Details Date Type Department Care Team ([facility] st Contact Info) Description 02/08/[address] [facility] CHC MED & PEDS [address] [place] [address] Jenni Santiago MD [address] [place] [phone] Parotid mass (Primary Dx) Social History Tobacco [...] Description 03/02/2025 1:30 PM EST Office Visit [facility] ADULT DENTAL [address] [place] [address] Wilfredo Santiago Scheduled Referrals Name Type Priority [...] documented as of this encounter Care Teams Telegraph Printer Mechanic Relationship Specialty Start Date End Date Jenni Santiago MD [address] [place] [phone] PCP - General Internal Medicine 02/05/18 documented as of this encounter
--- OUTSIDE RECORDS SUMMARY | 2025-01-23 15:05 | XMS_ITS | Encounter Summary ---
Author Organization [employer] Address [address] [facility] 7t [place] [address] Care Team Providers Care Social Problems Specialist Name Role Phone Jenni Santiago MD Primary Care Provider +1 [phone] Encounter Details Date Type Department Care Team (Late st Contact Info) Description 07/05/2023 Orders Only [facility] [address] [place] [address] Provider, MD Hai Social History Tobacco Use [...] 1:30 PM EST Office Visit [facility] ADULT DENTAL [address] [place] [address] Wilfredo Santiago documented as of this encounter [...] documented as of this encounter Care Teams Social Problems Specialist Relationship Specialty Start Date End Date Jenni Santiago MD [address] [place] [address] PCP - General Internal Medicine 02/05/18 documented as of this encounter
--- OUTSIDE RECORDS SUMMARY | 2025-01-23 15:05 | XMS_ITS | Clinical Summary ---
Author Organization [employer] Address [address] [facility] 7t [place] [address] Care Team Providers Care Wooden Box Maker Name Role Phone Jenni Santiago MD Primary [...] complication, with long-term current use of insulin ([facility]) Chew 4 tablets (16 g) if needed for low blood sugar. 50 tablet 12 01/31/20 23 Active omeprazole (PriLOSEC) [address] capsule TAKE ONE CAPSULE EVERY MORNING 30 capsule 5 04/16/19 24 Active Misc. Devices (Pulse Oximeter For Finger) miscIndications: COVID-19 To use every 4 hours. Call the office if O2 Sat < 90% 1 each 05/09/19 24 Active hyoscyamine ER (Levbid) 0.375 MG 12 hr tabletIndication s:Drooling Take 1 tablet (0.375 mg) by mouth every 12 (twelve) hours if needed for cramping. Do not crush or chew. 60 tablet 12 12/06/19 24 Active atorvastatin (Lipitor) 40 MG tablet Take 1 tablet by mouth at bedtime. Active famotidine (Pepcid) 20 MG tabletIndication s:Type 2 diabetes mellitus without complication, with long-term current use of insulin ([facility]),Gastroesop hageal reflux disease with esophagitis without hemorrhage TAKE ONE TABLET IN THE MORNING AND EVENING 60 tablet 11 5 1:35 PM EST 02/04/20 24 Active amoxicillin (Amoxil) 500 MG [...] procedure 16 capsule 3 05/10/19 25 Active losartan-hydroCH LOROthiazide (Hyzaar) 100-12.5 MG tablet TAKE ONE TABLET EVERY MORNING 30 tablet 11 5 1:35 PM EST 07/02/19 25 Active amLODIPine (Norvasc) 5 MG tabletIndication s:Essential hypertension TAKE ONE TABLET EVERY MORNING 90 tablet 3 5 1:35 PM EST 07/04/19 25 Active clopidogrel (Plavix) 75 MG tablet TAKE ONE TABLET EVERY MORNING 30 tablet 1 08/01/19 25 Active amoxicillin (Amoxil) 500 MG capsule Take 4 tabs (2 grams) 1 hour prior to dental procedure 12 capsule 08/29/19 25 Active clopidogrel (Plavix) 75 MG tablet TAKE ONE TABLET EVERY MORNING 30 tablet 1 01/20/20 25 Active Aspirin Adult Low Strength 81 MG EC tabletIndication s:Cerebrovascula r accident (CVA) due to other mechanism (HCC) TAKE ONE TABLET EVERY MORNING 90 tablet 3 01/22/20 25 Active cetirizine (ZyrTEC) 10 MG tabletIndication s:Drooling TAKE ONE TABLET EVERY MORNING 30 tablet 01/23/20 25 Active aspirin 81 MG EC tablet Take 81 mg by mouth Once per day. 01/22/20 24 025 Discontinued aspirin 81 MG EC tabletIndication s:Cerebrovascula r accident (CVA) due to other mechanism (HCC) Take 1 tablet (81 mg) by mouth Once per day. 30 tablet 11 01/29/20 24 025 Discontinued cetirizine (ZyrTEC) 10 MG tabletIndication s:Drooling TAKE ONE TABLET EVERY MORNING 90 tablet 1 07/30/19 25 025 Discontinued clopidogrel (Plavix) 75 MG tablet TAKE ONE TABLET EVERY MORNING 30 tablet 1 5 1:35 PM EST 11/25/19 25 025 Discontinued Active Problems Problem Noted [...] Encounters Date Type Department Care Team Description 01/21/2025 Refill [facility] CHC MED & PEDS [address] [place] [address] Jenni Santiago MD Drooling 01/21/2025 Orders Only [facility] MED & PEDS [address] [place] [address] Jenni Santiago MD Cerebrovascular accident (CVA) due to other mechanism (HCC) (Primary Dx) 01/21/2025 Refill [facility] MED & PEDS [address] [place] [address] Jenni Santiago MD Cerebrovascular accident (CVA) due to other mechanism (HCC) 01/19/2025 Telephone [facility] MEDICINE [address] [place], [place] [phone] Jenni Santiago MD Referral 01/17/2025 Refill [facility] MED & PEDS [address] [place] [address] Jenni Santiago MD 11/22/2024 Refill [facility] MED & PEDS [address] [place] [address] Jenni Santiago MD 11/07/2024 Results Follow-Up [facility] MED & PEDS [address] [place] [address] Carli Hill RN POCT Glucose, POCT Hgb A1c, Comprehensive Metabolic Panel, Additional followed-up results: 4 11/05/2024 Orders Only [facility] MED & PEDS [address] [place] [address] Jenni Santiago MD Hepatitis C virus infection without hepatic coma, unspecified chronicity (Primary Dx) from Last 3 Months Immunizations [...] 1:30 PM EST Office Visit [facility] ADULT DENTAL [address] [place] [address] Wilfredo Santiago Health Maintenance Due Date Last Done Comments CT Colonography 1950 Colonoscopy 1950 Colorectal Cancer Screening 1950 FIT DNA/Cologuard 1949 FIT 1949 FOBT 1950 Sigmoidoscopy 1949 Hepatitis A Vaccines (1 of 2 - Risk 2-dose series) 1968 Hepatitis B Vaccines (1 of 3 - Risk 3-dose series) 2009 Depression Monitoring 09/07/2024 03/10/2024, 025 Dental Oral [...] Exam 10/07/2025 Diabetes: Foot Exam 10/21/2025 10/21/2024 Lipid Panel 11/05/2025 11/05/2024, 08/20/2023 Dental X-Ray: Full Mouth 03/15/2027 025, 11/20/2017, [...] on patient's age to complete this topic Goals Goal Patient Goal Type Associated Problems [...] chronic kidney disease No Jenni Santiago MD Procedures Procedure Name Priority Date/Time Associated Diagnosis Comments VITAMIN B12/FOLATE, SERUM PANEL Routine 11/05/2024 11:34 AM EDT Type 2 diabetes mellitus without complication, with long-term current use of insulin (HCC) VITAMIN D,25-OH,TOTAL,IA Routine 11/05/2024 11:34 AM EDT Type 2 diabetes mellitus without complication, with long-term current use of insulin (HCC) MAGNESIUM Routine 11/05/2024 11:34 AM EDT Type 2 diabetes mellitus without complication, with long-term current use of insulin (HCC) LIPID PANEL, STANDARD Routine 11/05/2024 11:34 AM EDT Type 2 diabetes mellitus without complication, with long-term current use of insulin ([facility]) COMPREHENSIVE METABOLIC PANEL Routine 11/05/2024 11:34 AM EDT Type 2 diabetes mellitus without complication, with long-term current use of insulin ([facility]) POCT GLYCATED HEMOGLOBIN, TOTAL Routine 10/21/2024 1:59 PM EDT Type 2 diabetes mellitus without complication, with long-term current use of insulin ([facility]) PROPHYLAXIS - ADULT Routine 08/28/2024 3 :00 PM EDT INTRAORAL - COMPLETE SERIES OF RADIOGRAPHIC IMAGES Routine 03/14/2024 2:00 PM EST PERIODIC ORAL EVALUATION - ESTABLISHED PATIENT Routine 03/14/2024 2:00 PM EST ALBUMIN, RANDOM URINE W/CREATININE Routine 11/01/2023 1:00 PM EDT Type 2 diabetes mellitus without complication, with long-term current use of insulin ([facility]) from Last 3 Months or Most Recently Relevant to Health Maintenance Results * Vitamin D, 25-Hydroxy, Total, Immunoassay (11/05/2024 11:34 AM EDT) [facility] Vitamin D 25-OH Total 39.8 >30 ng/mL [facility] Comment: Health Based Reference Values*< 20 ng/mL [id number] ng/mL Insufficient> 30 ng/mL Sufficient*[place]. N Engl J Med. 2007;357:266-280There is no well-established upper level of normal vitamin Dlevels. Some laboratories use 50 ng/mL as an upper limit ofnormal. However, toxicity is patient-dependent and may occurat any level. Careful correlation with the patient'spresentation is necessary and, if there is concern forvitamin D toxicity, treatment should be consideredirrespective of the serum level.Care must be taken in interpreting Vitamin D results fromdifferent laboratories and methodologies. Published datademonstrated that results from patients undergoinghemodialysis may show a negative bias when tested withvarious automated 25-OH vitamin D assays when compared toLC-MS/MS.When testing samples from patients whose predominant form ofVitamin D is Vitamin D2, such as patients receiving VitaminD2 supplementation, results that are subtherapeutic shouldbe confirmed with another method such as LC-MS/MS. Blood Venous blood specimen / Unknown 11/05/2024 11:34 AM EDT 11/05/2024 1:58 PM EDT us Jenni Santiago MD LAB BLOOD ORDERABLES Final Result Performing Organization Address [facility]/ZIP Co de Phone Number [facility] [address] [place] [phone] * Vitamin B12/Folate, Serum Panel (11/05/2024 11:34 AM EDT) Vitamin B12 321 200 - 900 pg/mL [facility] Comment:NORMAL 200-900 PG/ML INDETERMINATE 160-199 PG/ML DEFICIENT < 160 PG/ML Folate 9.3 > or = 4.0 ng/mL [facility] Comment:Reference Values:> o r = 4.0 ng/mL< 4.0 ng/mL suggests folate deficiency Methotrexate, aminopterin and folinic acid(leucovorin) are chemotherapeutic agents whose molecularstructures are similar to folate; therefore, the Architectfolate assay cannot be used for patients using these drugs. Blood Venous blood specimen / Unknown 11/05/2024 11:34 AM EDT 11/05/2024 1:58 PM EDT us Jenni Santiago MD LAB BLOOD ORDERABLES Final Result Performing Organization Address [facility]/ZIP Co de Phone Number [facility] [address] [place] [phone] * Magnesium (11/05/2024 11:34 AM EDT) Magnesium 2.2 1.6 - 2.6 mg/dL [facility] Blood Venous blood specimen / Unknown 11/05/2024 11:34 AM EDT 11/05/2024 1:58 PM EDT us Jenni Santiago MD LAB BLOOD ORDERABLES Final Result Performing Organization Address City/[facility] Co de Phone Number [facility] [address] [place] [phone] * (ABNORMAL) Lipid Panel, Standard (11/05/2024 11:34 AM EDT) Triglycerides 54 <150 mg/dL [facility] Comment:Desirable Triglyceri de: less than 150 mg/dLBorderline High Triglyceride 150-199 mg/dLHigh Triglyceride: 200-499 mg/dLVery High Triglyceride: greater than or equal to 5OO mg/dL Cholesterol 89 <200 mg/dL [facility] Comment:Desirable Cholestero l: less than 200 mg/dLBorderline High Cholesterol: 200-239 mg/dLHigh Cholesterol: greater than 239 mg/dL LDL Cholesterol Calculated 43 <100 mg/dL [facility] Comment:Desirable LDL: less than 100 mg/dLNear Optimal/Above Optimal LDL: 110- 129 mg/dLBorderline High LDL: 130-159 mg/dLHigh LDL: 160-189 mg/dLVery High LDL: greater than or equal to 190 mg/dL HDL Cholesterol 36(L) >40 mg/dL [facility] Comment:Desirable HDL: great er than 40 mg/dL Note: This HDL assay may give artificially low results in patients with liver disease. Blood Venous blood specimen / Unknown 11/05/2024 11:34 AM EDT 11/05/2024 1:58 PM EDT us Jenni Santiago MD LAB BLOOD ORDERABLES Final Result Performing Organization Address City/[facility]/ZIP Co de Phone Number [facility] [address] [place] [address] [phone] * (ABNORMAL) Comprehensive Metabolic Panel (11/05/2024 11:34 AM EDT) Sodium 140 135 - 145 mmol/L [facility] Potassium 4.8 3.3 - 5.1 mmol/L [facility] Chloride 102 96 - 108 mmol/L [facility] Carbon Dioxide 30(H) 22 - 29 mmol/L [facility] Anion Gap 13 12 - 20 [facility] Urea Nitrogen (BUN) 23(H) 9 - 16 mg/dL [facility] Creatinine, Serum 0.91 0.5 - 1.4 mg/dL [facility] Estimated Glomerular Filt Rate >60 [facility] Comment:Chronic Kidney Disea se: Estimated GFR < 60 mL/min/1.75d7Egpemn Kidney Disease: Estimated GFR < 15 mL/min/1.73m2 Glucose 174(H) 60 - 115 mg/dL [facility] Calcium 9.6 8.4 - 10.2 mg/dL [facility] Bilirubin, Total 0.9 0.0 - 1.0 mg/dL [facility] Aspartate Amino Transferase 54(H) 5 - 37 U/L [facility] Alanine Aminotransferase 20 0 - 40 U/L [facility] Total Protein 6.9 6.5 - 8.0 g/dL [facility] Albumin Level 4.1 3.5 - 5.0 g/dL [facility] Alkaline Phosphatase 108 39 - 117 U/L [facility] Blood Venous blood specimen / Unknown 11/05/2024 11:34 AM EDT 11/05/2024 1:58 PM EDT us Jenni Santiago MD LAB BLOOD ORDERABLES Final Result [facility] [address] [place] [address] [phone] * (ABNORMAL) POCT Hgb A1c (10/21/2024 1:59 PM EDT) Hemoglobin A1C 7.7(A) 4.0 - 5.7 % QC Media Lot # [id number] Lot# Expiration Date [id number] Blood 10/21/2024 1:59 PM EDT us Jenni Santiago MD POINT OF CARE TEST ENTER/ED IT ORDERABLES Final Result * Albumin, Random Urine W/Creatinine (11/01/2023 1:00 PM EDT) Creatinine, Urine 135.32 mg/dL [facility] Microalbumin Urine 24.0 mg/L [facility] Microalbum Creatinine Ratio Ur 17.7 <30 ug/mg cr [facility] Comment:Albumin/Creatinine R atio Reference Ranges: Normal: < 30 ug/mg creatinine Microalbuminuria: 30 - 300 ug/mg creatinineClinical Albuminuria: > 300 ug/mg creatinine Urine (Urine, Random) 11/01/2023 1:00 PM EDT 11/01/2023 2:10 PM EDT us Jenni Santiago MD LAB URINE ORDERABLES Final Result Performing Organization Address City/State/[facility] Co de Phone Number [facility] [address] [place] [phone] from Last 3 Months or Most Recently Relevant to Health Maintenance Additional Health Concerns Active Problems Noted Date [...] 01/21/2025 Patient has chronic kidney disease 01/21/[address] [place] [id number] [facility] MEDICAID STAND ADULT Care Teams Wooden Box Maker Relationship Specialty Start Date End Date Jenni Santiago MD [address] [place] [phone] PCP - General Internal Medicine 02/05/18
--- OUTSIDE RECORDS SUMMARY | 2025-01-23 15:05 | XMS_ITS | Clinical Summary ---
Author Organization [address] [place] [address] Address [address] [place] [address] Phone Care Team Providers Care Bean Viner Name Role Phone Jenni Santiago MD Primary Care Provider [phone] -[phone] Allergies No known active allergies Medications acetaminophen [...] 11/11/2021 Active blood-glucose meter,continuou s (Dexcom G6 Smoke Jumper) misc by Does not apply route. - [...] prostatic hyperplasia) 04/03/2023 CVA (cerebral vascular accident) 04/03/2023 Depression 04/03/2023 GERD (gastroesophageal reflux disease) Glaucoma 04/03/2023 HLD (hyperlipidemia) 04/03/2023 HTN (hypertension) 04/03/2023 Non-healing wound of right heel 04/03/2023 PAD (peripheral artery disease) 04/03/2023 T2DM (type 2 diabetes mellitus) 04/03/2023 Encounters Date Type Department Care Team Description 11/20/2024 3:30 PM EDT Office Visit Orthopedic Surgery [facility] [address] [place] [phone] Froilan Escobar, DPM Primary osteoarthritis of both feet (Primary Dx); Diabetic mononeuropathy simplex (CMS/HCC V24, CMS/HCC V28); Metatarsalgia of both feet; Dermatophytosis of nail; Type II diabetes mellitus with peripheral circulatory disorder (CMS/HCC V24, CMS/HCC V28); Ingrowing nail; Corns and callosities; Pain in toe of left foot; Pain in toe of right foot 10/24/2024 2:30 PM EDT Office Visit Vascular Surgery - [place] [address] [facility] [address] [place] [address] Spike Anton MD History of TIA (transient ischemic attack) and stroke (Primary Dx); Carotid stenosis, asymptomatic, bilateral; PAD (peripheral artery disease) ([facility] V24) from Last 3 Months Immunizations Immunization Administration Dates Next Due Moderna SARS-CoV-2 COVID-19, mRNA, LNP-S, preservative free 12/06/2020 Pfizer SARS-CoV-2 COVID-19, mRNA, LNP-S, preservative free 05/04/2020,04/13/2020 Surgical History Surgery Date Site/Laterality Comments TOTAL KNEE ARTHROPLASTY Right PROCEDURE: HISTORICAL TOTAL KNEE REPLACE OTHER SURGICAL HISTORY 06/19/2023 PROCEDURE: AL SLCTV CATHJ 2ND ORDER ABDL PEL/LXTR ART BRNCH OTHER SURGICAL HISTORY 06/19/2023 PROCEDURE: X-RAY EXAM OF ARM/LEG ARTERY OTHER SURGICAL HISTORY 06/19/2023 PROCEDURE: ULTRASOUND GUIDANCE FOR VASCULAR AC OTHER SURGICAL HISTORY 07/05/2023 Right PROCEDURE: AL TEAEC W/GRAFT SUPERFICIAL FEMORAL ARTERY Medical History Medical History Date Comments Essential hypertension DX:Essent ial hypertension Diabetes mellitus type 2, co ntrolled, with complications ([facility] V24, [facility] V28) DX:Diabetes mellitus type 2, controlled, with complications ([facility]) Social History Tobacco Use Types Packs/Day Years Used Date Smoking Tobacco: Former Cigarettes 0 Q uit: 02/05/2003 Smokeless Tobacco: Never Alcohol Use Standard Drinks/Week Comments Never 0 (1 standard drink = 0.6 oz pur e alcohol) Sex and Gender Information Value Date Recorded Sex Assigned at Not on file Legal Sex Male 11:40 PM EST Gender Identity Not on file Sexual Orientation Not on file Last Filed Vital Signs Vital Sign Reading [...] Care Team (Late st Contact Info) Description 02/23/2025 1:45 PM EST Office Visit Orthopedic Surgery - [place] 250 [address] [facility] [address] [place] [phone] Froilan Escobar, DPM 175 [facility] 250 [place] [phone] 09/23/2025 10:00 AM EDT Ancillary Procedure [facility] [address] [place] [address] 10/23/2025 3:30 PM EDT Office Visit Vascular Surgery [facility] [place] [address] [place] [phone] Spike Anton MD [address] [place] [phone] Health Maintenance Due Date Last Done Comments Colorectal Cancer Screening: Colonoscopy 1950 Drug Screen 1950 Non-Opioid Controlled Substance Agreement 1950 Diabetes: Annual Foot Exam 08/26/1959 Diabetes: [...] Albumin-Creatinine Ratio (uACR) 08/31/2023 Depression Screening 02/06/2024 COVID-19 Vaccine ( season) 2024 12/10/2023, 01/17/2023, 12/09/2021, Additional history exists Influenza Vaccine (#1) 2024 , 01/17/2023, 11/24/2021, Additional history exists Diabetes: Blood Sugar Control Test (HGBA1C) 04/20/2025 10/21/2024, 03/10/2024, 12/06/2023, Additional history exists Diabetes: Annual GFR (Glomerular Filtration Rate) 11/05/2025 11/05/2024, 08/20/2023 Hypertension/CHF/CAD Annual BMP Blood Test 11/05/2025 11/05/2024, 08/20/2023 Cholesterol Screening (Lipid Panel) 11/05/2029 11/05/2024, 08/20/2023, 08/20/2023 DTaP,Tdap,and Td Vaccines (3 - [...] BMP Blood Test (08/20/2023) Pathologist [facility] Annual BMP Blood Test abstracted [facility] Provider HEALTH MAINTENANCE Final Result * Lipid panel (08/20/2023) [facility] Triglycerides 0 mg/dL Comment:no interpretation Cholesterol 0 mg/dL Comment:no interpretation HDL 0 mg/dL Comment:no interpretation LDL Cholesterol 0 mg/dL Comment:no interpretation Blood Venous blood specimen / Unknown Result [facility] Provider LAB BLOOD ORDERABLES Janeth l Result * Hepatitis C Screening (08/29/2021) [facility] Hepatitis C Screening abstracted Result [facility] Provider HEALTH MAINTENANCE Final Result * Hemoglobin A1c (08/29/2021) [facility] Hemoglobin A1C 0.0 % Comment:no interpretation Blood Venous blood specimen / Unknown Result [facility] Provider LAB BLOOD ORDERABLES Janeth l Result from Last 3 Months or Most Recently Relevant to Health Maintenance Insurance MEDICARE MEDICAID - [place] Care Teams Bean Viner Relationship Specialty Start Date End Date Jenni Santiago MD [address] [place] [address] PCP - General Internal Medicine 08/03/21
--- OUTSIDE RECORDS SUMMARY | 2025-01-23 15:05 | XMS_ITS | Encounter Summary ---
Author Organization [employer] Address [address] [facility] 7t [place] [address] Care Team Providers Care Hot Metal Mixer Operator Name Role Phone Jenni Santiago MD Primary Care Provider [phone]- [phone] Encounter Details Date Type Department Care Team (Late st Contact Info) Description 06/18/2023 Orders Only [facility] CHC MED & PEDS [address] [place], [place] [phone] Jenni Santiago MD [address] [place] [address] History of arthroplasty of right knee (Primary [...] 03/02/2025 1:30 PM EST Office Visit [facility] AD[facility] [address] [place] [address] Wilfredo Santiago documented as of this encounter Visit Diagnoses Diagnosis History of arthroplasty of right knee- Primary documented in this encounter Additional Health Concerns Assessment Noted Time PHQ-9 Depression Total Score: 9 03/03/19 23 2:43 PM EST documented as of this encounter Care Teams Hot Metal Mixer Operator Relationship Specialty Start Date End Date Jenni Santiago MD [address] [place] [address] PCP - General Internal Medicine 02/05/18 documented as of this encounter
--- OUTSIDE RECORDS SUMMARY | 2025-01-23 15:05 | XMS_ITS | Encounter Summary ---
Author Organization [employer] Address [address] [facility] 7t [place] [address] Care Team Providers Care Form Setter Helper Name Role Phone Jenni Santiago MD Primary Care Provider +1- [phone] Reason for Visit * Reason Onset Date Comments callback requested 01/15/2024 Encounter Details Date Type Department Care Team ([facility] st Contact Info) Description 01/15/2024 Telephone [facility] [address] [place] [address] Jenni Santiago MD [address] [place] [address] callback requested Social History Tobacco Use Types [...] know why are they calling him. Callback [phone] documented in this encounter Plan of Treatment Upcoming Encounters Date Type Department Care Team (Late st Contact Info) Description 03/02/2025 1:30 PM EST Office Visit [facility] 505 [place] [address] Wilfredo Santiago documented as of this encounter Visit Diagnoses Not on filedocumented in this encounter Additional Health Concerns Assessment Noted Time PHQ-9 Depression Total Score: 9 03/03/19 2:43 PM EST documented as of this encounter Care Teams Form Setter Helper Relationship Specialty Start Date End Date Jenni Santiago MD [address] [place] [address] PCP - General Internal Medicine 02/05/18 documented as of this encounter
--- OUTSIDE RECORDS SUMMARY | 2025-01-23 15:05 | XMS_ITS | Encounter Summary ---
Author Organization [employer] Address [address] [facility] 7t [place] [address] Care Team Providers Care Hardware Press Operator Name Role Phone Jenni Santiago MD Primary Care Provider [phone]- [phone] Encounter Details Date Type Department Care Team (Late st Contact Info) Description 08/04/2024 Orders Only [facility] CHC MED & PEDS [address] [place], [place] [phone] Jenni Santiago MD [address] [place] [address] Social History Tobacco Use Types Packs/Day Years [...] Description 03/02/2025 1:30 PM EST Office Visit [facility] ADULT DENTAL [address] [place] [address] Wilfredo Santiago documented as of this encounter Visit Diagnoses Not on filedocumented in this encounter Additional Health Concerns Assessment Noted Time PHQ-9 Depression Total Score: 15 025 10:01 AM EST documented as of this encounter Care Teams Hardware Press Operator Relationship Specialty Start Date End Date Jenni Santiago MD [address] [place] [address] PCP - General Internal Medicine 02/05/18 documented as of this encounter
--- OUTSIDE RECORDS SUMMARY | 2025-01-23 15:05 | XMS_ITS | Encounter Summary ---
Author Organization [employer] Address [address] [facility] [address] [place] [address] Care Team Providers Care Kerrick Kleaner Operator Name Role Phone Jenni Santiago MD Primary Care Provider [phone]- [phone] Reason for Referral * Imaging (Routine) - Authorized Specialty Diagnoses / Procedures Referred By Ayde fry Referred To Contact Radiology Diagnoses Hepatitis C virus infection without hepatic coma, unspecified chronicity Procedures US LIVER ELASTOGRAPHY - FIBROSCAN Jenni Santiago MD [address] [place] [address] Phone: tel: fax: [address] [address] Phone: tel: fax: Referral ID Status Reason Start Date Expiration Date V isits Requested Visits Authorized [id number] Authorized 11/05/2024 11/05/2025 1 1 Encounter Details Date Type Department Care Team (Late st Contact Info) Description 11/05/2024 Orders Only [facility] CHC MED & PEDS [address] [place], [place] [phone] Jenni Santiago MD [address] [place], [place] [phone] Hepatitis C virus infection without hepatic coma, unspecified chronicity (Primary Dx) Social History Tobacco Use Types [...] Upcoming Encounters Date Type Department Care Team ([facility] st Contact Info) Description 03/02/2025 1:30 PM EST Office Visit [facility] ADULT DENTAL [address] [place] [address] Wilfredo Santiago Scheduled Orders Name Type Priority Associated Diagnoses Orde r Schedule Hepatitis C Viral Load, RNA, Quantification Lab Routine Hepatitis C virus infection without hepatic coma, unspecified chronicity Expected: 11/05/2024 (Approximate), Expires: 11/05/2025 US LIVER ELASTOGRAPHY - FIBROSCAN Imaging Routine Hepatitis C virus infection without hepatic coma, unspecified chronicity Expected: 11/05/2024, Expires: 11/05/2025 documented as of this encounter Visit Diagnoses Diagnosis Hepatitis C virus infection without hepatic coma, unspecified chronicity- Primary documented in this encounter Additional Health Concerns Assessment Noted Time PHQ-9 Depression Total Score: 15 025 10:01 AM EST documented as of this encounter Care Teams Kerrick Kleaner Operator Relationship Specialty Start Date End Date Jenni Santiago MD [address] [place] [address] PCP - General Internal Medicine 02/05/18 documented as of this encounter
--- OUTSIDE RECORDS SUMMARY | 2025-01-23 15:05 | XMS_ITS | Encounter Summary ---
Author Organization [employer] Address [address] [facility] 7t [place] [address] Care Team Providers Care Chiropractor Sole Practitioner Name Role Phone Jenni Santiago MD Primary Care Provider [phone]- [phone] Reason for Visit * Reason Onset Date Comments Nurse Triage 10/29/2023 Encounter Details Date Type Department Care Team ([facility] st Contact Info) Description 10/29/2023 Telephone [facility] CHC MED & PEDS [address] [place] [address] Jenni Santiago MD [address] [place] [address] Nurse Triage Social History Tobacco Use Types [...] visit today will address current issue at [facility] [place]. Please follow with patient in regards to [...] Team appts. Available at time of call. [facility] hours and availability provided [...] become worse * Telephone Encounter - Jenny Rosa - 10/29/2023 10:41 AM EDT Symptoms: Skin Lump back of the neck Outcome: Schedule an appointment to be seen within 3 days Reason: Caller denied all higher acuity questions The caller accepted this outcome. documented in this encounter Plan of Treatment Upcoming Encounters Date Type Department Care Team (Late st Contact Info) Description 03/02/2025 1:30 PM EST Office Visit [facility] ADULT DENTAL [address] [place] [address] Wilfredo Santiago documented as of this encounter Visit Diagnoses Not on filedocumented in this encounter Additional Health Concerns Assessment Noted Time PHQ-9 Depression Total Score: 9 03/03/19 23 2:43 PM EST documented as of this encounter Care Teams Chiropractor Sole Practitioner Relationship Specialty Start Date End Date Jenni Santiago MD [address] [place] [address] PCP - General Internal Medicine 02/05/18 documented as of this encounter
--- OUTSIDE RECORDS SUMMARY | 2025-01-23 15:05 | XMS_ITS | Encounter Summary ---
Author Organization [employer] Address 75 [facility] 7t [place] [address] Care Team Providers Care Radiocommunications Technician Name Role Phone Jenni Santiago MD Primary Care Provider [phone]- [phone] Reason for Visit * Reason Onset Date Comments Appointment Request 01/03/2023 Encounter Details Date Type Department Care Team ([facility] st Contact Info) Description 01/03/2023 Telephone [facility] [address] [place] [address] Jenni Santiago MD [address] [place] [address] Appointment Request Social History Tobacco Use Types [...] message below. Pt informed that unfortunately the [facility] office does nothave COVID IZ or RSV vaccines. Pt advised to call local pharmacies and see if they have new RSV vaccine and if pt would like, appt can be booked in our [place] [facility] clinic for the COVID and Flu. [...] Description 03/02/2025 1:30 PM EST Office Visit [facility] [address] [place] [address] Wilfredo Santiago documented as of this encounter Visit Diagnoses Not on filedocumented in this encounter Additional Health Concerns Assessment Noted Time PHQ-9 Depression Total Score: 9 03/03/19 23 2:43 PM EST documented as of this encounter Care Teams Radiocommunications Technician Relationship Specialty Start Date End Date Jenni Santiago MD [address] [place] [address] PCP - General Internal Medicine 02/05/18 documented as of this encounter
--- OUTSIDE RECORDS SUMMARY | 2025-01-23 15:05 | XMS_ITS | Encounter Summary ---
Author Organization [employer] Address 75 [facility] 7t [place] [address] Care Team Providers Care Shellfish Sorter Name Role Phone Jenni Santiago MD Primary Care Provider [phone]- [phone] Reason for Visit * Reason Comments Med Refill Encounter Details Date Type Department Care Team ([facility] st Contact Info) Description 04/25/2023 Refill [facility] MED & PEDS [address] [place] [address] Jenni Santiago MD [address] [place] [address] Social History Tobacco Use Types Packs/Day Years [...] 1:30 PM EST Office Visit [facility] ADULT DENTAL [address] [place] [address] Wilfredo Santiago documented as of this encounter Visit Diagnoses Not on filedocumented in this encounter Additional Health Concerns Assessment Noted Time PHQ-9 Depression Total Score: 9 03/03/19 23 2:43 PM EST documented as of this encounter Care Teams Shellfish Sorter Relationship Specialty Start Date End Date Jenni Santiago MD [address] [place] [address] PCP - General Internal Medicine 02/05/18 documented as of this encounter
--- OUTSIDE RECORDS SUMMARY | 2025-01-23 15:05 | XMS_ITS | Data Portability ---
Author Organization [place] - [facility], Allergy Address [address] [address] Care Team Providers Care Tube Handler Name Role Phone DAMIRHAMPAUL Primary Care Provider [phone] Assessment Encounter Date Assessment Date Assessment LastModified [...] r/o malignanc y, [facility] [address], [place], [address], 5 09:50:20 Surgeries None recorded. Imaging None recorded. Medication Orders None recorded. Patient TargetsNo targets recorded. Patient InstructionsNo instructions recorded. Reason for Referral None Reported. Results Created Date Observation Date Name Description Value Unit Range Abnormal Flag Note LastModifiedBy Organization Detail LastModifiedTime 02/10/1901/19/2024 CT, angio gram, neck, w/ contr ast No observ ation record ed. [facility] [address], [place], [address], 02/11/2024 15:39:24 Result Notes None recorded. 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 Procedures Surgical History Date Name Laterality Status Provider Name and Address Organization Details Recorded Time 04/08/2024 Telehealth completed JONH SANDRA MD [address] [place] [address], [phone], [place] - [facility] 04/08/2024 16:10:55 Imaging Results None recorded. Procedure Notes None recorded. Medical Equipment None Reported. Medications Name Sig Start Date Stop Date Status Note LastModified by Organization Details LastModified Time medbox status USE DIRECTED active Not Available Not Available No t Available pulse oximet airial [id number] USE EVERY 4 HOURS. call office IF [...] Updated DateTime 03/03/2024 175.26 cm 28.9 kg/m2 71625.1 g Roverto Lama [place] - [facility] 03/03/2024 10:55:07 Social History None recorded. Functional Status None recorded. Mental Status None recorded. Family History Nothing Reported. Medical History No medical history recorded. Past Encounters Encounter ID Performer Location Encounter Start Date Encounter Closed Date Diagnosis/Indication Diagnosis SNOMED-CT Code Diagnosis ICD10 Code Diagnosis IMO Codes Diagnosis Note [id number] JONH SANDRA MD [facility] [address] [address] 03/03/2024 09:39:10 03/03/2024 11:09:12 Neoplasm of parotid gland 834360454 D49.0 R59.0 right periparoti d 24mm nodule noted on US, not palpable on exam [id number] JONH SANDRA MD [facility] [address] [facility], [place] [address] 04/08/2024 16:06:51 04/08/2024 16:11:26 Neoplasm of parotid gland 491238719 D49.0 R59.0 right periparoti d 24mm nodule [...] ID Guarantor Name 04/05/2024 1 [place]IC[place] B-[place]: [employer] Josh T Claudia [id number] Josh Taylor 04/05/2024 2 [place] [facility] Josh Taylor [id number] Josh Taylor Notes Date Note Type Note [...] node or parotid lesion.01/19/2024 CTA neck at [facility] is missing second page. 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
--- OUTSIDE RECORDS SUMMARY | 2025-01-23 15:05 | XMS_ITS | Encounter Summary ---
Author Organization [employer] Address [address] [facility] [address] [place] [address] Care Team Providers Care Application Spec Name Role Phone Jenni Santiago MD Primary Care Provider Encounter Details Date Type Department Care Team (Late Contact Info) Description 05/30/2022 Orders Only [facility] PED[facility] [address] [place], [place] [id number] Jenni Santiago MD [address] [place] [address] Essential hypertension (Primary Dx); Depressive disorder; Other [...] 1:30 PM EST Office Visit [facility] ADULT DENTAL [address] [place] [address] Wilfredo Santiago Scheduled Orders Name Type Priority [...] Vitamin B12 267 200 - 1,100 pg/mL [facility] Comment: Please Note: Although the reference range [...] LAB BLOOD ORDERABLES Final Result [facility] [address], [place] [address] [facility] [address] [place] [address] * (ABNORMAL) Comprehensive Metabolic Panel (06/01/2022 3:34 PM EDT) Glucose 86 65 - 139 mg/dL [facility] Comment: Non-fasting reference interval Urea Nitrogen (BUN) 20 7 - 25 mg/dL [facility] Creatinine, Serum 0.67(L) 0.70 - 1.28 mg/dL [facility] eGFR 99 > OR = 60 mL/min/1. 73m2 [facility] Comment: The eGFR is based on the CKD-EPI 2020 equation. To calculate the new eGFR from a previous Creatinine or Cystatin C result, go to https://www.kidney.org/professionals/ kdoqi/gfr%5Fcalculator BUN/Creatinine Ratio 30(H) 6 - 22 (calc) [facility] Sodium 139 135 - 146 mmol/L [facility] Potassium 4.8 3.5 - 5.3 mmol/L [facility] Chloride 99 98 - 110 mmol/L [facility] [place] [facility] Carbon Dioxide 28 20 - 32 mmol/L [facility] Calcium 9.8 8.6 - 10.3 mg/dL [facility] [place] [facility] Protein, Total 7.0 6.1 - 8.1 g/dL [facility] Albumin 4.4 3.6 - 5.1 g/dL [facility] Globulin 2.6 1.9 - 3.7 g/dL (calc) [facility] Albumin/Globuli n Ratio 1.7 1.0 - 2.5 (calc) [facility] Bilirubin, Total 0.9 0.2 - 1.2 mg/dL [facility] Alkaline Phosphatase 87 35 - 144 U/L [facility] AST 25 10 - 35 U/L [facility] ALT 22 9 - 46 U/L [facility] Blood Venous blood specimen / Unknown 06/01/2022 3:34 PM EDT 06/01/2022 3:35 PM EDT Narrative [facility] - 06/02/2022 3:28 AM EDT FASTING:NO FASTING: NO us Jenni Santiago MD LAB BLOOD ORDERABLES Final Result [facility] [address], [place] [address] [facility] [address] [place] [address] documented in this encounter Visit Diagnoses Diagnosis Essential hypertension- Primary Unspecified essential hypertension Depressive disorder Depressive disorder, not elsewhere classified Other obesity documented in this encounter Additional Health Concerns Assessment Noted Time PHQ-9 Depression Total Score: 9 03/03/19 23 2:43 PM EST documented as of this encounter Care Teams Application Spec Relationship Specialty Start Date End Date Jenni Santiago MD [address] [place] [id number] PCP - General Internal Medicine 02/05/18 documented as of this encounter
--- OUTSIDE RECORDS SUMMARY | 2025-01-23 15:05 | XMS_ITS | Encounter Summary ---
Author Organization [employer] Address [address] [facility] 7t [place] [address] Care Team Providers Care Order Tracer Name Role Phone Jenni Santiago MD Primary Care Provider [phone] Reason for Visit * Reason Onset Date Comments Hospital Follow-up 01/24/2024 Encounter Details Date Type Department Care Team (Late st Contact Info) Description 01/24/2024 Telephone [facility] MEDICINE [address] [place] [address] Jenni Santiago MD [address] [place] [address] Hospital Follow-up Social History Tobacco Use Types [...] from pt requesting a HDF appt. Hospital: [facility] Date of admission: 01/18 Discharge date: 01/22 Diagnosed: Stroke Contact pt at [phone] *Send message to [place] [facility] Care Coordinators documented in this encounter Plan of Treatment Upcoming Encounters Date Type Department Care Team (Late st Contact Info) Description 03/02/2025 1:30 PM EST Office Visit [facility] ADULT DENTAL [address] [place] [address] Wilfredo Santiago documented as of this encounter Visit Diagnoses Not on filedocumented in this encounter Additional Health Concerns Assessment Noted Time PHQ-9 Depression Total Score: 9 03/03/19 23 2:43 PM EST documented as of this encounter Care Teams Order Tracer Relationship Specialty Start Date End Date Jenni Santiago MD [address] [place] [address] PCP - General Internal Medicine 02/05/18 documented as of this encounter
== END 2025-01-23 13:18 | disposition home or self-care (01) ==
LOC: HO.US 13:17
PROVIDERS: Visit Provider Internal Medicine
DX: B19.20 Unspecified viral hepatitis C without hepatic coma (principal)
CPT/HCPCS: 76700; 76981

== ENCOUNTER → 2025-01-23 13:46 | Outpatient (BNV) | payer MEDICARE, MEDICAID, SELFPAY | PROVIDERS: Visit Provider Radiology Diagnostic Radiology | DX: B19.20 Unspecified viral hepatitis C without hepatic coma (principal) | CPT/HCPCS: 76700 ==